=== PATIENT | male | born 1975 | race Caucasian/White ===

== ENCOUNTER 2019-02-07 09:31 | Inpatient (IN) ==
[2019-02-07] MEDS: 0.9 % Sodium Chloride 1,000 ML IVC ONE ×2 (10:02→10:48)
[2019-02-07 10:21] LABS: Basophils % 0.3 %; Eosinophils # 0.1 K/mcL (0.0-0.6); Eosinophils % 3.1 %; Hematocrit 28.8 % (37.5-50.1); Hemoglobin 9.2 g/dL (12.9-16.9); Immature Granulocytes % 0.8 % (0-4); Lymphocytes % 27.3 %; Mean Corpuscular HGB Conc 31.9 g/dL (31.6-35.5); Mean Corpuscular Hemoglobin 24.7 pg (28.0-33.3); Mean Corpuscular Volume 77.4 fL (83.0-100.0); Mean Platelet Volume 8.6 fL (9.4-12.4); Monocytes # 0.5 K/mcL (0.0-1.3); Monocytes % 13.8 %; Neutrophils # 1.9 K/mcL (1.6-8.9); Platelet Count 155 K/mcL (140-400); Red Blood Count 3.72 M/mcL (4.19-5.50); Red Cell Distribution Width 13.8 % (11.5-14.5); Segmented Neutrophils % 54.7 %; White Blood Count 3.6 K/mcL (4.3-11.1)
[2019-02-07] MEDS ORDERED: 0.9 % Sodium Chloride 1,000 ML IVC ONE ×2 (10:28→11:17)
[2019-02-07 10:42] LABS: Blood Urea Nitrogen 9 mg/dL (6-20); Calcium 8.5 mg/dL (8.6-10.3); Carbon Dioxide 29 mEq/L (23-29); Chloride 97 mEq/L (98-107); Glucose 349 mg/dL (70-105); Osmolality,Calculated 285 (280-300); Potassium 5.3 mEq/L (3.5-5.1); Sodium 131 mEq/L (136-145); Troponin I < 0.03 ng/mL (< 0.04)
--- NOTE | 2019-02-07 10:42 | Emergency Department Note ---
Disposition Clinical Impression: Syncope and collapse, Hyperkalemia, Hyperglycemia Hypotension Qualifiers: Hypotension type: unspecified hypotension type Qualified Code(s): I95.9 - Hypotension, unspecified Disposition: Admitted As Inpatient Condition: Fair Time of Disposition: 14:23 General Adult HPI - General Chief complaint: ED Syncope Stated complaint: Syncopal episode,Fall,GC 307 Time Seen by Provider: 02/07/19 09:32 Source: patient Mode of arrival: ambulatory Limitations: no limitations Nursing Notes Reviewed: Yes Vital Signs Reviewed: Yes - History of Present Illness HPI Narrative: Patient is a 43-year-old male with a past medical history of alcohol, methamphetamine and marijuana use presents to the ED for evaluation of syncope. Patient states that today he was outside smoking a cigarette and while smoking the cigarette he collapsed to the ground. He denies any injury. People nearby attended to him and called squad. Upon arrival he denies any focal neurological. Denies any symptoms of chest pain or palpitations. He states that he mainly just feels drowsy. Of rehabilitation in which the patient currently resides is present at bedside states that the patient does appear to be acting drowsy based from his baseline. The patient denies any new drug use. Employed from the [facility] states that it would be very low likelihood that the patient was able to access any type of other medications outside of his prescriptions. States that he was prescribed new blood pressure medication yesterday evening in which she started which was lisinopril and Coreg. Patient denies taking more medication than prescribed. Pain Scale: 8 - Related Data Home Medications Medication Instructions Recorded Confirmed Amitriptyline [Elavil] 150 mg PO HS 02/07/19 02/07/19 Carvedilol [Coreg] 25 mg PO BID 02/07/19 02/07/19 Lisinopril [Zestril] 20 mg PO DAILY 02/07/19 02/07/19 NIFEdipine [Adalat cc] 60 mg PO DAILY 02/07/19 02/07/19 Pantoprazole Sodium [Protonix] 40 mg PO DAILY 02/07/19 02/07/19 Quetiapine Fumarate [Seroquel] 400 mg PO HS 02/07/19 02/07/19 Allergies Allergy/AdvReac Type Severity Reaction Status Date / Time acetaminophen [From Vicodin] AdvReac Nausea Verified 06/03/16 14:06 hydrocodone [From Vicodin] AdvReac Nausea Verified 06/03/16 14:06 All systems ED: reviewed and negative except as stated. Review of Systems: As Per HPI Constitutional: Denies: fever, chills Eyes: Denies: vision change Cardiovascular: Reports: syncope. Denies: chest pain, palpitations, dyspnea on exertion, edema, paroxysmal nocturnal dyspnea Respiratory: Denies: cough, dyspnea, wheezes Gastrointestinal: Denies: abdominal pain, nausea, vomiting, diarrhea, constipation, hematemesis, melena, hematochezia Genitourinary: Denies: urgency, dysuria, frequency, hematuria, testicular pain, testicular mass, genital lesions Musculoskeletal: Denies: back pain, neck pain, joint swelling Integumentary: Denies: rash Neurological: Denies: headache, weakness, numbness, paresthesias, confusion, abnormal gait, vertigo Past Medical History - Past Medical History Attestation: Yes The following information was validated with the patient. Medical history: Reports: coronary artery disease, diabetes, hypertension Surgical history: Reports: non-contributory Psychiatric history: Reports: anxiety, depression - Social History Smoking Status: Current every day smoker Smokeless Tobacco Status: No Alcohol use: Reports: none Drug use: Reports: none Physical Exam - General Limitations: no limitations General appearance: alert, appears intoxicated - Head Head exam: atraumatic, normocephalic, normal inspection - Eye Eye exam: Present: normal appearance, PERRL, EOMI. Absent: miosis, mydriasis - ENT ENT exam: normal exam, normal oropharynx, mucous membranes dry - Neck Neck exam: Present: normal inspection, full ROM, trachea midline. Absent: tenderness - Chest Chest inspection: Present: normal inspection, symmetric chest wall rise. Absent: tenderness - Respiratory Respiratory exam: Present: normal lung sounds bilaterally. Absent: respiratory distress, wheezes, accessory muscle use - Cardiovascular Cardiovascular exam: Present: regular rate, normal rhythm, +S1, +S2 - Abdominal Exam Abdominal exam: Present: soft, Non-Tender, normal bowel sounds - Extremities Exam Extremities exam: Present: normal inspection, full ROM, normal capillary refill. Absent: tenderness - Back Exam Back exam: Present: normal inspection - Neurological Exam Neurological exam: Present: alert, oriented X3 - Psychiatric Psychiatric exam: Present: normal affect, normal mood - Skin Skin exam: Present: warm, dry, intact, normal color Course Course Narrative: Patient's age and presentation appears drowsy otherwise no other physical exam findings at this time. His blood pressure is soft with a map of 55. Unsure of why the patient has such low blood pressure but I am sure that this is the cause of the symptoms he is having. His EKG is normal. We trialed a fluid bolus with the patient with 2 L and no improvement. I discussed the patient's case with the [facility] discussed new medications they recommended atropine, glucagon and if no improvement no epinephrine. Patient had improvement of heart rate 100s with atropine however no improvement in pressure or drowsiness. He was consented for a central line. A right IJ was placed with confirmed placement by ultrasound and chest x-ray. Norepi drip initiated. - Reevaluation(s) Reevaluation #1: Spoke with the Employee Benefits Director, discussed plan to add on an echo and CTA of the chest to evaluate further for PE or cardiac tamponade. Time: 16:04 Reevaluation #2: Echo performed in the ED ED showed no right heart strain. D-dimer was added requested follow-up with the night resident if positive plan to order CT of the chest. Vital Signs Temperature 97.4 F L 02/07/19 09:36 Pulse Rate 72 02/07/19 09:36 Respiratory Rate 18 02/07/19 09:36 Blood Pressure 73/42 02/07/19 09:36 O2 Sat by Pulse Oximetry 97 02/07/19 09:36 Temperature 98 F 02/07/19 16:15 Pulse Rate 71 02/07/19 19:00 Respiratory Rate 13 02/07/19 19:00 Blood Pressure 105/66 02/07/19 19:00 O2 Sat by Pulse Oximetry 99 02/07/19 19:00 Oxygen Delivery Oxygen Delivery Room Air Procedures - Central Line Placement Right IJ Central Line Inserted*: Yes Central Line Catheter Replacement*: Yes Central Line Insertion: guidewire exchange Consent Obtained: written consent Procedural Pause: verify patient name and date of , timeout performed per policy, abhijit and assess the site, assemble equipment and verify supplies, perform hand hygiene Patient Placed on Monitor/Pulse Ox: Yes During the Procedure: clinician is wearing sterile gloves, cap, mask,& gown during insertion, sterile field and sterile technique are maintained, patient's face is covered with drape or mask and wearing a cap, everyone in room is w earing a mask Central Line Prep: Chlorhexidine scrub Prep the Procedure Site: apply chloraprep to the skin using a back and forth scrubbing motion Local Anesthetic: lidocaine 1% Ultrasound Used for Placement: Yes Central Line Lumen Inserted: triple Post Procedure: sutured in place Post Procedure X-Ray: tip of catheter in good position Patient Tolerated Procedure: well Complications: none Name of Clinician Inserting Central Line: Dr. Cooper Montgomery Date: 02/07/19 Time: 13:46 Medical Decision Making - Medical Records Medical records reviewed: Yes I reviewed the patient's medical records. - Lab Data Lab results reviewed: Yes I reviewed the patient's lab results. Result diagrams: 02/07/19 10:07 02/07/19 16:54 Lab Results 02/07/19 02/07/19 02/07/19 Range/Units 09:59 10:07 10:07 WBC 3.6 L (4.3-11.1) K/mcL RBC 3.72 L (4.19-5.50) M/mcL Hgb 9.2 L (12.9-16.9) g/dL Hct 28.8 L (37.5-50.1) % MCV 77.4 L (83.0-100.0) fL MCH 24.7 L (28.0-33.3) pg MCHC 31.9 (31.6-35.5) g/dL RDW 13.8 (11.5-14.5) % Plt Count 155 (140-400) K/mcL MPV 8.6 L (9.4-12.4) fL Immature Gran % 0.8 (0-4) % Seg Neutrophils % 54.7 % Lymphocytes % 27.3 % Monocytes % 13.8 % Eosinophils % 3.1 % Basophils % 0.3 % Neutrophils # 1.9 (1.6-8.9) K/mcL Lymphocytes # 1.0 (0.6-4.6) K/mcL Monocytes # 0.5 (0.0-1.3) K/mcL Eosinophils # 0.1 (0.0-0.6) K/mcL Basophils # 0.0 (0.0-0.2) K/mcL VBG pH (7.32-7.42) pH Units VBG pCO2 (41-51) mmHg VBG pO2 (25-50) mmHg VBG HCO3 (21-27) mEq/L Sodium 131 L (136-145) mEq/L Potassium 5.3 H (3.5-5.1) mEq/L Chloride 97 L (98-107) mEq/L Carbon Dioxide 29 (23-29) mEq/L BUN 9 (6-20) mg/dL Creatinine 1.11 (0.70-1.30) mg/dL Est GFR ( Amer) > 60 (> 60) Est GFR (Non-Af Amer) > 60 (> 60) BUN/Creatinine Ratio 8 (6-26) Glucose 349 H (70-105) mg/dL POC Glucose 366 H (70-99) mg/dL Calculated Osmolality 285 (280-300) Lactic Acid (0.5-2.2) mmol/L Calcium 8.5 L (8.6-10.3) mg/dL Creatine Kinase 70 (30-223) Units/L Troponin I < 0.03 (< 0.04) ng/mL Beta-Hydroxybutyric Acd (0.02-0.27) mmol/L Random Cortisol 14.8 mcg/dl Urine Color (Yellow) Urine Clarity (Clear) Urine pH (5.0-8.0) pH Units Ur Specific Emerson (1.010-1.025) Urine Protein (Neg-Trace) mg/dL Urine Glucose (UA) (Normal) mg/dL Urine Ketones (Negative) mg/dL Urine Blood (Negative) Urine Nitrite (Negative) Urine Bilirubin (Negative) Urine Urobilinogen (Normal) mg/dL Ur Leukocyte Esterase (Negative) Ur Culture Indicated? (NO) Stool Occult Bld Scrn (Negative) 02/07/19 02/07/19 02/07/19 Range/Units 11:20 11:27 11:47 WBC (4.3-11.1) K/mcL RBC (4.19-5.50) M/mcL Hgb (12.9-16.9) g/dL Hct (37.5-50.1) % MCV (83.0-100.0) fL MCH (28.0-33.3) pg MCHC (31.6-35.5) g/dL RDW (11.5-14.5) % Plt Count (140-400) K/mcL MPV (9.4-12.4) fL Immature Gran % (0-4) % Seg Neutrophils % % Lymphocytes % % Monocytes % % Eosinophils % % Basophils % % Neutrophils # (1.6-8.9) K/mcL Lymphocytes # (0.6-4.6) K/mcL Monocytes # (0.0-1.3) K/mcL Eosinophils # (0.0-0.6) K/mcL Basophils # (0.0-0.2) K/mcL VBG pH 7.30 L (7.32-7.42) pH Units VBG pCO2 49 (41-51) mmHg VBG pO2 137 H (25-50) mmHg VBG HCO3 24 (21-27) mEq/L Sodium (136-145) mEq/L Potassium (3.5-5.1) mEq/L Chloride (98-107) mEq/L Carbon Dioxide (23-29) mEq/L BUN (6-20) mg/dL Creatinine (0.70-1.30) mg/dL Est GFR ( Amer) (> 60) Est GFR (Non-Af Amer) (> 60) BUN/Creatinine Ratio (6-26) Glucose (70-105) mg/dL POC Glucose (70-99) mg/dL Calculated Osmolality (280-300) Lactic Acid (0.5-2.2) mmol/L Calcium (8.6-10.3) mg/dL Creatine Kinase (30-223) Units/L Troponin I (< 0.04) ng/mL Beta-Hydroxybutyric Acd 0.19 (0.02-0.27) mmol/L Random Cortisol mcg/dl Urine Color (Yellow) Urine Clarity (Clear) Urine pH (5.0-8.0) pH Units Ur Specific Emerson (1.010-1.025) Urine Protein (Neg-Trace) mg/dL Urine Glucose (UA) (Normal) mg/dL Urine Ketones (Negative) mg/dL Urine Blood (Negative) Urine Nitrite (Negative) Urine Bilirubin (Negative) Urine Urobilinogen (Normal) mg/dL Ur Leukocyte Esterase (Negative) Ur Culture Indicated? (NO) Stool Occult Bld Scrn Negative (Negative) 02/07/19 02/07/19 Range/Units 12:13 13:40 WBC (4.3-11.1) K/mcL RBC (4.19-5.50) M/mcL Hgb (12.9-16.9) g/dL Hct (37.5-50.1) % MCV (83.0-100.0) fL MCH (28.0-33.3) pg MCHC (31.6-35.5) g/dL RDW (11.5-14.5) % Plt Count (140-400) K/mcL MPV (9.4-12.4) fL Immature Gran % (0-4) % Seg Neutrophils % % Lymphocytes % % Monocytes % % Eosinophils % % Basophils % % Neutrophils # (1.6-8.9) K/mcL Lymphocytes # (0.6-4.6) K/mcL Monocytes # (0.0-1.3) K/mcL Eosinophils # (0.0-0.6) K/mcL Basophils # (0.0-0.2) K/mcL VBG pH (7.32-7.42) pH Units VBG pCO2 (41-51) mmHg VBG pO2 (25-50) mmHg VBG HCO3 (21-27) mEq/L Sodium (136-145) mEq/L Potassium (3.5-5.1) mEq/L Chloride (98-107) mEq/L Carbon Dioxide (23-29) mEq/L BUN (6-20) mg/dL Creatinine (0.70-1.30) mg/dL Est GFR ( Amer) (> 60) Est GFR (Non-Af Amer) (> 60) BUN/Creatinine Ratio (6-26) Glucose (70-105) mg/dL POC Glucose (70-99) mg/dL Calculated Osmolality (280-300) Lactic Acid 1.7 (0.5-2.2) mmol/L Calcium (8.6-10.3) mg/dL Creatine Kinase (30-223) Units/L Troponin I (< 0.04) ng/mL Beta-Hydroxybutyric Acd (0.02-0.27) mmol/L Random Cortisol mcg/dl Urine Color Yellow (Yellow) Urine Clarity Clear (Clear) Urine pH 6.5 (5.0-8.0) pH Units Ur Specific Emerson 1.023 (1.010-1.025) Urine Protein Trace (Neg-Trace) mg/dL Urine Glucose (UA) >=1000 H (Normal) mg/dL Urine Ketones Negative (Negative) mg/dL Urine Blood Negative (Negative) Urine Nitrite Negative (Negative) Urine Bilirubin Negative (Negative) Urine Urobilinogen Normal (Normal) mg/dL Ur Leukocyte Esterase Negative (Negative) Ur Culture Indicated? NO (NO) Stool Occult Bld Scrn (Negative) - Radiology Data Radiology results reviewed: Yes I reviewed the patient's radiology results. Chest X-Ray 02/07/19 09:42 IMPRESSION: No acute process. Mild right lower lobe atelectasis D/ / Samir Andersen MD / Samir Andersen MD Interpreting Provider: Samir Andersen MD Head CT 02/07/19 10:17 IMPRESSION: No acute intracranial abnormality. D/ / Samir Andersen MD / Samir Andersen MD Interpreting Provider: Samir Andersen MD - EKG Data EKG #1 EKG attestation: Yes I reviewed and interpreted this EKG. EKG results narrative: EKG done at 9:42 shows sinus rhythm at a rate of 68 bpm. Normal axis. Intervals within normal limits. No signs of ST depression, ST elevation or Q waves present.
[2019-02-07] MEDS ORDERED: *HR* Atropine Sulfate 1 MG/10 ML SYRINGE IVP ONE (11:23)
[2019-02-07 11:49] LABS: VBG HCO3 24 mEq/L (21-27); VBG PCO2 49 mmHg (41-51); VBG PO2 137 mmHg (25-50)
[2019-02-07 11:54] LABS: BUN/Creatinine Ratio 8 (6-26); Creatine Kinase 70 Units/L (30-223); eGFR For African Americans > 60 (> 60); eGFR For Non-African Americans > 60 (> 60)
[2019-02-07] MEDS: Norepinephrine 4 MG in D5% in Water 250 ML IVC SCH ×2 (12:25→19:34)
[2019-02-07] MEDS ORDERED: Hydrocortisone Sodium Succ 100 MG/2 ML VIAL IVP ONE (12:45)
--- NOTE | 2019-02-07 13:18 | Emergency Department Note ---
Disposition Clinical Impression: Syncope and collapse, Hyperkalemia, Hyperglycemia Hypotension Qualifiers: Hypotension type: unspecified hypotension type Qualified Code(s): I95.9 - Hypotension, unspecified Disposition: Admitted As Inpatient Condition: Fair Referrals: NONE,PCP [Primary Care Provider] - Forms: ED Satisfaction Letter Time of Disposition: 13:19 General Adult HPI - General Chief complaint: ED Syncope Stated complaint: Syncopal episode,Fall,GC 307 Time Seen by Provider: 02/07/19 09:32 Source: patient Limitations: no limitations - History of Present Illness Pain Scale: 8 - Related Data Home Medications Medication Instructions Recorded Confirmed Amitriptyline [Elavil] 150 mg PO HS 02/07/19 02/07/19 Carvedilol [Coreg] 25 mg PO DAILY 02/07/19 02/07/19 Lisinopril [Zestril] 20 mg PO DAILY 02/07/19 02/07/19 NIFEdipine [Adalat cc] 30 mg PO DAILY 02/07/19 02/07/19 Pantoprazole Sodium [Protonix] 40 mg PO DAILY 02/07/19 02/07/19 Quetiapine Fumarate [Seroquel] 400 mg PO 02/07/19 Allergies Allergy/AdvReac Type Severity Reaction Status Date / Time acetaminophen [From Vicodin] AdvReac Nausea Verified 06/03/16 14:06 hydrocodone [From Vicodin] AdvReac Nausea Verified 06/03/16 14:06 Past Medical History - Past Medical History Medical history: Reports: coronary artery disease, diabetes, hypertension Surgical history: Reports: non-contributory Psychiatric history: Reports: anxiety, depression - Social History Smoking Status: Current every day smoker Smokeless Tobacco Status: No Alcohol use: Reports: none Drug use: Reports: none Physical Exam - General Limitations: no limitations General appearance: appears intoxicated Course Vital Signs Temperature 97.4 F L 02/07/19 09:36 Pulse Rate 72 02/07/19 09:36 Respiratory Rate 18 02/07/19 09:36 Blood Pressure 73/42 02/07/19 09:36 O2 Sat by Pulse Oximetry 97 02/07/19 09:36 Temperature 97.4 F L 02/07/19 09:41 Pulse Rate 69 02/07/19 12:30 Respiratory Rate 18 02/07/19 12:30 Blood Pressure 94/57 02/07/19 12:30 O2 Sat by Pulse Oximetry 95 02/07/19 12:30 Oxygen Delivery Oxygen Delivery Room Air Medical Decision Making - Lab Data Result diagrams: 02/07/19 10:07 02/07/19 10:07 Lab Results 02/07/19 02/07/19 02/07/19 Range/Units 10:07 10:07 11:20 WBC 3.6 L (4.3-11.1) K/mcL RBC 3.72 L (4.19-5.50) M/mcL Hgb 9.2 L (12.9-16.9) g/dL Hct 28.8 L (37.5-50.1) % MCV 77.4 L (83.0-100.0) fL MCH 24.7 L (28.0-33.3) pg MCHC 31.9 (31.6-35.5) g/dL RDW 13.8 (11.5-14.5) % Plt Count 155 (140-400) K/mcL MPV 8.6 L (9.4-12.4) fL Immature Gran % 0.8 (0-4) % Seg Neutrophils % 54.7 % Lymphocytes % 27.3 % Monocytes % 13.8 % Eosinophils % 3.1 % Basophils % 0.3 % Neutrophils # 1.9 (1.6-8.9) K/mcL Lymphocytes # 1.0 (0.6-4.6) K/mcL Monocytes # 0.5 (0.0-1.3) K/mcL Eosinophils # 0.1 (0.0-0.6) K/mcL Basophils # 0.0 (0.0-0.2) K/mcL VBG pH (7.32-7.42) pH Units VBG pCO2 (41-51) mmHg VBG pO2 (25-50) mmHg VBG HCO3 (21-27) mEq/L Sodium 131 L (136-145) mEq/L Potassium 5.3 H (3.5-5.1) mEq/L Chloride 97 L (98-107) mEq/L Carbon Dioxide 29 (23-29) mEq/L BUN 9 (6-20) mg/dL Creatinine 1.11 (0.70-1.30) mg/dL Est GFR ( Amer) > 60 (> 60) Est GFR (Non-Af Amer) > 60 (> 60) BUN/Creatinine Ratio 8 (6-26) Glucose 349 H (70-105) mg/dL Calculated Osmolality 285 (280-300) Lactic Acid (0.5-2.2) mmol/L Calcium 8.5 L (8.6-10.3) mg/dL Creatine Kinase 70 (30-223) Units/L Troponin I < 0.03 (< 0.04) ng/mL Beta-Hydroxybutyric Acd (0.02-0.27) mmol/L Random Cortisol 14.8 mcg/dl Stool Occult Bld Scrn Negative (Negative) 02/07/19 02/07/19 02/07/19 Range/Units 11:27 11:47 12:13 WBC (4.3-11.1) K/mcL RBC (4.19-5.50) M/mcL Hgb (12.9-16.9) g/dL Hct (37.5-50.1) % MCV (83.0-100.0) fL MCH (28.0-33.3) pg MCHC (31.6-35.5) g/dL RDW (11.5-14.5) % Plt Count (140-400) K/mcL MPV (9.4-12.4) fL Immature Gran % (0-4) % Seg Neutrophils % % Lymphocytes % % Monocytes % % Eosinophils % % Basophils % % Neutrophils # (1.6-8.9) K/mcL Lymphocytes # (0.6-4.6) K/mcL Monocytes # (0.0-1.3) K/mcL Eosinophils # (0.0-0.6) K/mcL Basophils # (0.0-0.2) K/mcL VBG pH 7.30 L (7.32-7.42) pH Units VBG pCO2 49 (41-51) mmHg VBG pO2 137 H (25-50) mmHg VBG HCO3 24 (21-27) mEq/L Sodium (136-145) mEq/L Potassium (3.5-5.1) mEq/L Chloride (98-107) mEq/L Carbon Dioxide (23-29) mEq/L BUN (6-20) mg/dL Creatinine (0.70-1.30) mg/dL Est GFR ( Amer) (> 60) Est GFR (Non-Af Amer) (> 60) BUN/Creatinine Ratio (6-26) Glucose (70-105) mg/dL Calculated Osmolality (280-300) Lactic Acid 1.7 (0.5-2.2) mmol/L Calcium (8.6-10.3) mg/dL Creatine Kinase (30-223) Units/L Troponin I (< 0.04) ng/mL Beta-Hydroxybutyric Acd 0.19 (0.02-0.27) mmol/L Random Cortisol mcg/dl Stool Occult Bld Scrn (Negative) Attestation Statement - Attestation Attestation: I reviewed the residents documentation and agree with the residents assessment and plan of care. I have personally had face to face time with the patient. (Brief History, Brief Exam, and MDM) I personally supervised and was present for the hopper/critical portions of the following procedures completed by the resident: EKG/US 43 year old male presents to the eD with complanits of hypotension ad has been in a rehab facility for the past two months and was started on a Coreg and lisinpril yesterday for HTN. Andrea had an extreme vasovagal response and expereinced syncope and then hit his head. We have essentially looked for causes of his hypotension including bedside ultrasound to rule out dissection vs abdominal anuerysm, adrenal insufficiency, hypovolumic conditions such as GI bleed or dehydration. We have consutled with posion jessyorl about the initial treatment for BB overdose although it seems unlikley that this is the case as his medications are given to him and the couselors at bedside states that he has not had access to medicatiosn otherwise. Patient does appear drowsy at bedisde and is hypotensive with a MAP<65. We placed a central line inthe RIJ And started pressors and now has a MAP > 65. Andrea does not have an infectios source and othewrise does not meet SIRS criiers. We also remedied with atropine, glucagon for BB overdose per poision control reccomdnation
[2019-02-07 14:01] LABS: Bilirubin,Urine Negative (Negative); Blood,Urine Negative (Negative); Clarity,Urine Clear (Clear); Color,Urine Yellow (Yellow); Glucose,Urine (UA) >=1000 mg/dL (Normal); Ketones,Urine Negative (Negative); Leukocyte Esterase,Urine Negative (Negative); Nitrite,Urine Negative (Negative); PH,Urine 6.5 pH Units (5.0-8.0); Protein,Urine Trace mg/dL (Neg-Trace); Specific Gravity,Urine 1.023 (1.010-1.025); Urobilinogen,Urine Normal (Normal)
[2019-02-07] MEDS ORDERED: Naloxone 0.4 MG/ML INJ IVP PRN (15:23)
[2019-02-07] MEDS ORDERED: Pantoprazole 40 MG VIAL IVP SCH (15:30)
--- NOTE | 2019-02-07 15:41 | Pulmonology History & Physical ---
Date of Encounter: 02/07/19 Time of Encounter: 15:00 Assessment and Plan (1) Shock Current visit: Yes Status: Acute Patient recently started the antihypertensive carvedilol was around 25 mg is more than the usual dose and lisinopril 20 mg is more than usual dose on top office nicardipine with some volume depletion most likely causes syncope and collapse because of his extensive diabetes and hypertension hyperlipidemia it is reasonable to rule out myocardial causes will get an echocardiogram and trend troponins. Is reasonable to get CT angiogram to rule out pulmonary embolism. We will do a thorough septic Workup will start on broad-spectrum antibiotics no obvious evidence of infection. (2) Syncope and collapse Current visit: Yes Status: Acute Patient syncope and collapse most likely due to orthostatic hypotension after this new medication the setting of some volume depletion. (3) Diabetes Current visit: Yes Status: Acute Patient has uncontrolled hyperglycemia with no evidence of ketoacidosis IV ins ulin drip patient is nothing by mouth Qualifiers: Diabetes mellitus type: type 2 Diabetes mellitus termite control technician insulin use: unspecified termite control technician insulin use status Diabetes mellitus complication status: with other specified complication Qualified Code(s): E11.69 - Type 2 diabetes mellitus with other specified complication (4) DVT prophylaxis Current visit: Yes Status: Acute Continue heparin subcutaneous History of Present Illness Chief complaint: Syncope and collapse HPI: Mr. Arthur is a 43 year old male with past medical history significant for alcohol and IV drug abuse, patient has a past medical history significant for hypertension, diabetes, hyperlipidemia, coronary artery disease comes with the syncope and collapse patient recently was started on oral hypertension antihypertensive carvedilol 25 mg and lisinopril 20 mg by mouth on top of his neck and up and patient denies any issues with urination denies much cough or sputum production patient denies any photophobia except for some headache which is chronic migraine according to him. There is no episode for acute confusion patient denies any chest pain chest tightness denies any palpitations. Patient denies any nausea vomiting diarrhea patient was persistently hypotensive after volume resuscitation patient had a dose of glucagon in ER with no response patient was started on vasopressor norepinephrine to stabilize the blood pressure critical care was consult and for further management and transferred to ICU for further care. Past Med Surg Social Fam HX - Past Medical History Medical history: coronary artery disease, diabetes, hypertension Additional medical history: endocarditis Psychiatric history: anxiety, depression - Past Surgical History Surgical History: non-contributory - Social History Smoking Status: Current every day smoker Smokeless Tobacco Status: No Alcohol use: none Drug use: none Medications and Allergies Amitriptyline [Elavil] 150 mg PO HS 02/07/19 [History] Carvedilol [Coreg] 25 mg PO BID 02/07/19 [History] Lisinopril [Zestril] 20 mg PO DAILY 02/07/19 [History] NIFEdipine [Adalat cc] 60 mg PO DAILY 02/07/19 [History] Pantoprazole Sodium [Protonix] 40 mg PO DAILY 02/07/19 [History] Quetiapine Fumarate [Seroquel] 400 mg PO HS 02/07/19 [History] Allergy/AdvReac Type Severity Reaction Status Date / Time acetaminophen [From Vicodin] AdvReac Nausea Verified 06/03/16 14:06 hydrocodone [From Vicodin] AdvReac Nausea Verified 06/03/16 14:06 All Systems: The remainder of the systems were reviewed and are negative Physical Examination Vital Signs: Vital Signs, Last 4 Hours Pulse Resp BP Pulse Ox 02/07/19 15:00 76 16 87/57 92 02/07/19 13:57 104/71 02/07/19 13:16 70 18 95/62 95 02/07/19 12:30 69 18 94/57 95 02/07/19 12:26 68 18 73/57 94 General appearance: no acute distress Eyes: nonicteric ENT: oropharynx moist Neck: supple Inspection: other (Significant scar in the sternum) Auscultation: bilateral: clear Cardiovascular: regular rate and rhythm Gastrointestinal: normoactive bowel sounds Extremities: no cyanosis, no edema Musculoskeletal: no deformities normal mental status, non-focal exam, CN II-XII normal mood appropriate Results - Laboratory Findings CBC and BMP: 02/07/19 10:07 02/07/19 16:54 Abnormal lab findings: Abnormal lab results WBC 3.6 K/mcL (4.3-11.1) L 02/07/19 10:07 RBC 3.72 M/mcL (4.19-5.50) L 02/07/19 10:07 Hgb 9.2 g/dL (12.9-16.9) L 02/07/19 10:07 Hct 28.8 % (37.5-50.1) L 02/07/19 10:07 MCV 77.4 fL (83.0-100.0) L 02/07/19 10:07 MCH 24.7 pg (28.0-33.3) L 02/07/19 10:07 MPV 8.6 fL (9.4-12.4) L 02/07/19 10:07 VBG pH 7.30 pH Units (7.32-7.42) L 02/07/19 11:47 VBG pO2 137 mmHg (25-50) H 02/07/19 11:47 Sodium 131 mEq/L (136-145) L 02/07/19 10:07 Potassium 5.3 mEq/L (3.5-5.1) H 02/07/19 10:07 Chloride 97 mEq/L (98-107) L 02/07/19 10:07 Glucose 349 mg/dL (70-105) H 02/07/19 10:07 Calcium 8.5 mg/dL (8.6-10.3) L 02/07/19 10:07 >=1000 mg/dL (Normal) H 02/07/19 13:40 Critical Care Time Critical Care Time: Yes Total Critical Care Time: 45 Attestation: I saw and evaluated this patient and my medical decision-making was reviewed wi th the Resident Physician. I agree with the documented findings, disposition and treatment plan as described except to the extent set forth below. We independently had [id number] contact with the patient I spent 45 minutes of Critical Care time with this patient. It involved decision making of high complexity to assess, manipulate, and support vital organ system failure and/or to prevent further life threatening deterioration of the patient's condition. The time involved in the performance of separately reportable procedures was not counted toward critical care time.
[2019-02-07] MEDS ORDERED: Aminoglycoside Consult 1 EACH MC ONE (15:47)
[2019-02-07] MEDS ORDERED: Isovue-370 500 ML BOTTLE IVP ONE (15:50)
[2019-02-07] MEDS ORDERED: Vancomycin (wt based) 1,000 MG VIAL IVPB SCH (16:00)
[2019-02-07] MEDS ORDERED: D5% in Water 1,000 ML IVC PRN (16:29)
[2019-02-07] MEDS ORDERED: Dextrose Gel 15 GM/37.5 ML TUBE PO PRN ×2 (16:29)
[2019-02-07] MEDS ORDERED: *HR* Dextrose 50 % in Water (Syg) 50 ML SYRINGE IVP PRN ×2 (16:29→19:00)
[2019-02-07 17:13] LABS: VBG Ionized Calcium 1.11 mmol/L (1.15-1.35)
[2019-02-07 17:58] LABS: BUN/Creatinine Ratio 12 (6-26); Blood Urea Nitrogen 13 mg/dL (6-20); Calcium 7.7 mg/dL (8.6-10.3); Carbon Dioxide 23 mEq/L (23-29); Chloride 98 mEq/L (98-107); Glucose 557 mg/dL (70-105); Magnesium 1.6 mg/dL (1.6-2.6); Osmolality,Calculated 292 (280-300); Phosphorous 2.9 mg/dL (2.7-4.5); Potassium 5.2 mEq/L (3.5-5.1); Sodium 128 mEq/L (136-145); Troponin I < 0.03 ng/mL (< 0.04); eGFR For African Americans > 60 (> 60); eGFR For Non-African Americans > 60 (> 60)
[2019-02-07] MEDS ORDERED: Insulin LISPRO 300 UNITS/3 ML VIAL SQ SCH (18:00)
[2019-02-07 18:06] LABS: Thyroid Stimulating Hormone 0.744 mcIU/mL (0.340-5.600)
[2019-02-07] MEDS ORDERED: Insulin DETEMIR 100 UNIT/ML X5UNITS SQ ONE (18:07)
[2019-02-07 18:50] LABS: Amphetamine Screen,Urine Negative ng/mL (Cutoff=1000); Barbiturate Screen,Urine Negative ng/mL (Cutoff=200); Benzodiazepines Screen,Urine Positive ng/mL (Cutoff=200); Cannabinoid Screen,Urine Negative ng/mL (Cutoff = 50); Cocaine Screen,Urine Negative ng/mL (Cutoff= 300); Opiate Screen,Urine Negative ng/mL (Cutoff=300); Phencyclidine Screen,Urine Negative ng/mL (Cutoff=25)
[2019-02-07] MEDS: Piperacillin/Tazobactam 3.375 GM in 0.9 % Sodium Chloride Mini Bag 100 ML IVPB SCH (18:59)
[2019-02-07] MEDS: Insulin Human Regular 100 UNIT in 0.9 % Sodium Chloride 100 ML IVC SCH ×2 (19:37→23:35)
[2019-02-07] MEDS: *HR* Heparin 5,000 UNIT/ML VIAL SQ SCH (22:19)
[2019-02-07] MEDS ORDERED: 0.9 % Sodium Chloride 1,000 ML IVC SCH (23:00)
[2019-02-07 23:34] LABS: VBG HCO3 22 mEq/L (21-27); VBG PCO2 47 mmHg (41-51); VBG PH 7.28 pH Units (7.32-7.42); VBG PO2 134 mmHg (25-50)
[2019-02-07 23:51] LABS: Blood Urea Nitrogen 15 mg/dL (6-20); Calcium 8.2 mg/dL (8.6-10.3); Carbon Dioxide 23 mEq/L (23-29); Chloride 103 mEq/L (98-107); Glucose 245 mg/dL (70-105); Osmolality,Calculated 285 (280-300); Potassium 3.5 mEq/L (3.5-5.1); Sodium 133 mEq/L (136-145)
[2019-02-08 00:47] LABS: BUN/Creatinine Ratio 15 (6-26); eGFR For African Americans > 60 (> 60); eGFR For Non-African Americans > 60 (> 60)
[2019-02-08] MEDS: Piperacillin/Tazobactam 3.375 GM in 0.9 % Sodium Chloride Mini Bag 100 ML IVPB SCH (02:04)
[2019-02-08] MEDS: *HR* Heparin 5,000 UNIT/ML VIAL SQ SCH ×3 (05:39→20:49)
[2019-02-08] MEDS ORDERED: Insulin LISPRO 300 UNITS/3 ML VIAL SQ SCH ×2 (06:00→08:00)
[2019-02-08 06:14] LABS: Basophils % 0.1 %; Eosinophils % 0.5 %; Hematocrit 26.3 % (37.5-50.1); Hemoglobin 8.6 g/dL (12.9-16.9); Immature Granulocytes % 0.5 % (0-4); Lymphocytes # 1.4 K/mcL (0.6-4.6); Lymphocytes % 15.6 %; Mean Corpuscular HGB Conc 32.7 g/dL (31.6-35.5); Mean Corpuscular Volume 76.5 fL (83.0-100.0); Mean Platelet Volume 8.9 fL (9.4-12.4); Monocytes # 0.9 K/mcL (0.0-1.3); Monocytes % 9.8 %; Neutrophils # 6.5 K/mcL (1.6-8.9); Platelet Count 234 K/mcL (140-400); Red Blood Count 3.44 M/mcL (4.19-5.50); Red Cell Distribution Width 13.7 % (11.5-14.5); Segmented Neutrophils % 73.5 %
[2019-02-08 06:17] LABS: White Blood Count 8.8 K/mcL (4.3-11.1)
--- NOTE | 2019-02-08 07:08 | Pulmonology Progress Note ---
<Sage Odom W - Last Filed: 02/08/19 08:40> Date of Encounter: 02/08/19 Objective PUL Vital signs: Last Vital Signs Temp 97.3 F L 02/08/19 07:39 Pulse 90 02/08/19 08:00 Resp 16 02/08/19 08:00 BP 121/85 02/08/19 08:00 Pulse Ox 97 02/08/19 08:00 Results - Laboratory Findings CBC and BMP: 02/08/19 04:09 02/07/19 23:20 PT/INR, D-dimer 1435 ng/mLFEU (0-500) H 02/07/19 16:54 Abnormal lab findings: Abnormal lab results WBC 3.6 K/mcL (4.3-11.1) L 02/07/19 10:07 RBC 3.44 M/mcL (4.19-5.50) L 02/08/19 04:09 Hgb 8.6 g/dL (12.9-16.9) L 02/08/19 04:09 Hct 26.3 % (37.5-50.1) L 02/08/19 04:09 MCV 76.5 fL (83.0-100.0) L 02/08/19 04:09 MCH 25.0 pg (28.0-33.3) L 02/08/19 04:09 MPV 8.9 fL (9.4-12.4) L 02/08/19 04:09 1435 ng/mLFEU (0-500) H 02/07/19 16:54 VBG pH 7.28 pH Units (7.32-7.42) L 02/07/19 23:31 VBG pO2 134 mmHg (25-50) H 02/07/19 23:31 Sodium 133 mEq/L (136-145) L 02/07/19 23:20 Potassium 5.2 mEq/L (3.5-5.1) H 02/07/19 16:54 Chloride 97 mEq/L (98-107) L 02/07/19 10:07 Glucose 245 mg/dL (70-105) H 02/07/19 23:20 POC Glucose 132 mg/dL (70-99) H 02/08/19 00:40 Lactic Acid 3.6 mmol/L (0.5-2.2) H 02/07/19 20:53 Calcium 8.2 mg/dL (8.6-10.3) L 02/07/19 23:20 Venous Ioniz Calcium 1.11 mmol/L (1.15-1.35) L 02/07/19 17:10 >=1000 mg/dL (Normal) H 02/07/19 13:40 Ur Buprenorphine Scrn Positive ng/mL (Cutoff=5) H 02/07/19 15:06 U Benzodiazepines Scrn Positive ng/mL (Jcdfnb=039) H 02/07/19 15:06 - Microbiology Findings Microbiology Findings: Microbiology, Last 48 Hours 02/07/19 13:40 Streptococcus pneumoniae Antigen (M - Final Urine,Clean Catch 02/07/19 13:40 Legionella Antigen - Final Urine,Clean Catch 02/07/19 17:40 Blood Culture - Preliminary Peripheral Venipuncture Culture is incubating and being continuously monitored for growth. Final report to follow. 02/07/19 17:40 Blood Culture - Preliminary Peripheral Venipuncture Culture is incubating and being continuously monitored for growth. Final report to follow. - Clinical Findings Intake & Output: Intake & Output 02/07/19 02/08/19 02/08/19 23:59 07:59 15:59 Intake Total 666.6 / 3711.6 395.2 / 395.2 Output Total 0 / 0 0 / 0 Balance 666.6 / 3711.6 395.2 / 395.2 Weight 61.7 kg 67.4 kg Consult Discharge Plan - Plan Referrals: NONE,PCP [Primary Care Provider] - - Attending Attestation I examined this patient and my medical decision-making was reviewed with the Resident Physician. I agree with the documented findings, disposition and treatment plan as described except to the extent set forth below. We ind ependently had [id number] contact with the patient Patient seen and examined at bedside Labs, radiology, chart personally reviewed. Management was reviewed during multidisciplinary critical care rounds. PRIZER HAND: Awake and alert no focal deficits he is in a rehabilitation program for drug addiction Pulm: Acceptable oxygenation; tobacco cessation counseling given Cards: She presented with syncope likely secondary to hypotension from medication effect he has been weaned off vasopressors and is stable GI: Continue to monitor Nutrition: Advance diet as tolerated Renal: UOP Monitored, Cont to Trend sCr and monitor Electrolytes. ID: No clear evidence of infection Heme/Onc: DVT prophylaxis while inpatient Endo: Glucose Monitored Integ/MSK: Skin Care per routine ICU Nursing Protocol to prevent ulcers. Lines: All lines examined without evidence of infection : Dispo: Stable for transfer to telemetry for ongoing care CODE: Full <Chiqui Tam - Last Filed: 02/08/19 12:11> Date of Encounter: 02/08/19 Time of Encounter: 07:08 Assessment and Plan (1) Shock Current Visit: Yes Status: Acute * More likely source of hypotension requiring vasopressors was the readmission of several antihypertensive medications with resultant orthostatic hypotension just prior to emergency department visit. * CT shows no convincing evidence of pulmonary infiltrate, the patient has no significant cough or leukocytosis * Patient with 1/4 SIRS criteria on arrival * Lactate 1.7, 2.1, 3.6 but had acidosis likely secondary to metabolic derangements from hyperglycemia * Will discontinue antibiotics upon transfer out of ICU today * Stable for telemetry floor (2) Hyperglycemia Current Visit: Yes Status: Acute * Upon arrival the patient's glucose was elevated up to 490. No elevation in anion gap or beahydroxybutyrate to indicate DKA * Overnight the patient was placed on insulin drip and is now normoglycemic * Insulin TIDAC as he will resume diabetic diet (3) Diabetes Current Visit: Yes Status: Acute * As above, will continue to monitor with meals and treat with sliding scale insulin Qualifiers: Diabetes mellitus type: type 2 Diabetes mellitus penitentiary insulin use: unspecified penitentiary insulin use status Diabetes mellitus complication status: with other specified complication Qualified Code(s): E11.69 - Type 2 diabetes mellitus with other specified complication (4) Polysubstance abuse Current Visit: Yes Status: Chronic * Currently in rehab * UDS positive for buprenorphine and benzodiazepines * No signs of withdrawal at this time (5) DVT prophylaxis Current Visit: Yes Status: Acute * Heparin SQ Subjective Interval history: The patient has done well. He is requesting food. He is no longer requiring va sopressors. Objective PUL Vital signs: Last Vital Signs Temp 97.0 F L 02/08/19 03:36 Pulse 81 02/08/19 06:00 Resp 16 02/08/19 06:00 BP 130/86 02/08/19 06:00 Pulse Ox 97 02/08/19 06:00 General appearance: no acute distress Eyes: nonicteric ENT: oropharynx moist Effort: normal Auscultation: bilateral: clear Cardiovascular: regular rate and rhythm Gastrointestinal: normoactive bowel sounds, non-tender, non-distended Integumentary: normal Extremities: no cyanosis Musculoskeletal: no deformities normal mental status, non-focal exam mood appropriate, affect normal Results - Laboratory Findings CBC and BMP: 02/08/19 04:09 02/08/19 04:20 PT/INR, D-dimer 1435 ng/mLFEU (0-500) H 02/07/19 16:54 Abnormal lab findings: Abnormal lab results WBC 3.6 K/mcL (4.3-11.1) L 02/07/19 10:07 RBC 3.44 M/mcL (4.19-5.50) L 02/08/19 04:09 Hgb 8.6 g/dL (12.9-16.9) L 02/08/19 04:09 Hct 26.3 % (37.5-50.1) L 02/08/19 04:09 MCV 76.5 fL (83.0-100.0) L 02/08/19 04:09 MCH 25.0 pg (28.0-33.3) L 02/08/19 04:09 MPV 8.9 fL (9.4-12.4) L 02/08/19 04:09 1435 ng/mLFEU (0-500) H 02/07/19 16:54 VBG pH 7.28 pH Units (7.32-7.42) L 02/07/19 23:31 VBG pO2 134 mmHg (25-50) H 02/07/19 23:31 Sodium 133 mEq/L (136-145) L 02/07/19 23:20 Potassium 5.2 mEq/L (3.5-5.1) H 02/07/19 16:54 Chloride 97 mEq/L (98-107) L 02/07/19 10:07 Glucose 245 mg/dL (70-105) H 02/07/19 23:20 POC Glucose 132 mg/dL (70-99) H 02/08/19 00:40 Lactic Acid 3.6 mmol/L (0.5-2.2) H 02/07/19 20:53 Calcium 8.2 mg/dL (8.6-10.3) L 02/07/19 23:20 Venous Ioniz Calcium 1.11 mmol/L (1.15-1.35) L 02/07/19 17:10 >=1000 mg/dL (Normal) H 02/07/19 13:40 Ur Buprenorphine Scrn Positive ng/mL (Cutoff=5) H 02/07/19 15:06 U Benzodiazepines Scrn Positive ng/mL (Jchdkk=817) H 02/07/19 15:06 - Microbiology Findings Microbiology Findings: Microbiology, Last 48 Hours 02/07/19 13:40 Streptococcus pneumoniae Antigen (M - Final Urine,Clean Catch 02/07/19 13:40 Legionella Antigen - Final Urine,Clean Catch 02/07/19 17:40 Blood Culture - Preliminary Peripheral Venipuncture Culture is incubating and being continuously monitored for growth. Final report to follow. 02/07/19 17:40 Blood Culture - Preliminary Peripheral Venipuncture Culture is incubating and being continuously monitored for growth. Final report to follow. - Clinical Findings Intake & Output: Intake & Output 02/07/19 02/07/19 02/08/19 15:59 23:59 07:59 Intake Total 3045 / 3711.6 666.6 / 3711.6 395.2 / 395.2 Output Total 0 / 0 0 / 0 Balance 3045 / 3711.6 666.6 / 3711.6 395.2 / 395.2 Weight 62.959 kg 61.7 kg 67.4 kg
[2019-02-08] MEDS ORDERED: D5% in Water 1,000 ML IVC PRN (08:05)
[2019-02-08] MEDS ORDERED: *HR* Dextrose 50 % in Water (Syg) 50 ML SYRINGE IVP PRN (08:05)
[2019-02-08] MEDS ORDERED: Dextrose Gel 15 GM/37.5 ML TUBE PO PRN ×2 (08:05)
[2019-02-08] MEDS ORDERED: Naloxone 0.4 MG/ML INJ IVP PRN (08:05)
[2019-02-08] MEDS ORDERED: NON-FORMULARY MEDICATION 1 EACH EACH (Pantoprazole Sodium [Protonix] 40 MG) PO SCH (09:00)
[2019-02-08 09:02] LABS: BUN/Creatinine Ratio 15 (6-26); Blood Urea Nitrogen 13 mg/dL (6-20); Carbon Dioxide 25 mEq/L (23-29); Chloride 105 mEq/L (98-107); Glucose 145 mg/dL (70-105); Magnesium 1.7 mg/dL (1.6-2.6); Osmolality,Calculated 281 (280-300); Potassium 4.4 mEq/L (3.5-5.1); Sodium 134 mEq/L (136-145); eGFR For African Americans > 60 (> 60); eGFR For Non-African Americans > 60 (> 60)
[2019-02-08] MEDS: Insulin LISPRO 300 UNITS/3 ML VIAL SQ SCH ×2 (12:04→16:18)
[2019-02-08] MEDS ORDERED: *HR* Labetalol 20 MG/4 ML SYRINGE IVP PRN (16:05)
[2019-02-08] MEDS ORDERED: *HR* Labetalol 20 MG/4 ML SYRINGE IVP ONE (16:11)
[2019-02-08] MEDS: Lisinopril 20 MG TABLET PO SCH (20:49)
[2019-02-09] MEDS ORDERED: Insulin NPH 100 UNIT/ML (x5UNIT) SQ ONE (02:37)
[2019-02-09] MEDS ORDERED: Insulin LISPRO 300 UNITS/3 ML VIAL SQ ONE (02:51)
[2019-02-09] MEDS: *HR* Heparin 5,000 UNIT/ML VIAL SQ SCH ×2 (06:38→14:49)
[2019-02-09] MEDS: Lisinopril 20 MG TABLET PO SCH (08:38)
[2019-02-09] MEDS: Insulin LISPRO 300 UNITS/3 ML VIAL SQ SCH ×2 (08:38→12:26)
[2019-02-09 11:48] VITALS: BP 157/105
[2019-02-09] MEDS ORDERED: levoFLOXacin 750 MG TABLET PO SCH (12:00)
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
--- NOTE | 2019-02-10 09:16 | Electrocardiograph Report ---
[facility] Test Date: 2019-02-07 Pat Name: Rick Arthur Department: [id number] Room: 2NE23 Gender: M Welder Assistant: : 1975 Requested By: Cooper Montgomery Order Number: [id number] Reading MD: Clive Blanco Measurements Intervals Drift Rate: 68 P: 30 ME: 184 QRS: 40 QRSD: 92 T: 34 QT: 421 QTc: 448 Interpretive Statements Sinus rhythm Electronically Signed On 02-10-2019 9:14:27 EDT by Clive Blanco
[2019-02-11 11:24] LABS: Estimated Average Glucose 200 mg/dl
== END 2019-02-09 15:48 | disposition home or self-care (01) | DRG 207 ==
LOC: EMEROOARM 09:31 → ICNU 14:37 → SUATTDRO 14:37 → ICNU 16:02 → 2NENU 02-08 09:52
PROVIDERS: ADMIT Internal Medicine; ATTEND Student in an Organized Health Care Education/Training Program

== ENCOUNTER 2019-02-16 17:42 | Observation (INO) ==
[2019-02-16] MEDS ORDERED: *HR* LORazepam 2 MG/ML VIAL ONE (17:44)
[2019-02-16] MEDS ORDERED: *HR* Dextrose 50 % in Water (Syg) 50 ML SYRINGE ONE (17:45)
[2019-02-16] MEDS ORDERED: 0.9 % Sodium Chloride 1,000 ML ONE (17:53)
[2019-02-16] MEDS ORDERED: 0.9 % Sodium Chloride 1,000 ML IVC ONE ×2 (18:08→18:56)
--- NOTE | 2019-02-16 18:27 | Emergency Department Note ---
Disposition Clinical Impression: Hypoglycemic event in diabetes, Suicidal ideation Disposition: Still a Patient Condition: Fair Referrals: NONE,PCP [Primary Care Provider] - Forms: ED Satisfaction Letter Time of Disposition: 22:00 General Adult HPI - General Chief complaint: ED Seizure Time Seen by Provider: 02/16/19 18:02 Source: EMS Limitations: no limitations - History of Present Illness Pain Scale: 0 - Related Data Home Medications Medication Instructions Recorded Confirmed Carvedilol [Coreg] 25 mg PO BID 02/07/19 02/16/19 Lisinopril [Zestril] 20 mg PO DAILY 02/07/19 02/16/19 NIFEdipine [Adalat cc] 60 mg PO DAILY 02/07/19 02/16/19 Pantoprazole Sodium [Protonix] 40 mg PO BID 02/07/19 02/16/19 Quetiapine Fumarate [Seroquel] 400 mg PO HS 02/07/19 02/16/19 Insulin ASPART [NovoLOG] 10 unit SQ TIDWM 02/09/19 02/16/19 Insulin Glargine [Lantus] 20 unit SQ HS 02/09/19 02/16/19 Amitriptyline HCl 150 mg PO HS 02/16/19 02/16/19 Gabapentin [Neurontin] 300 mg PO TID 02/16/19 02/16/19 Quetiapine Fumarate [Seroquel] 50 mg PO HS 02/16/19 02/16/19 Previous Rx's Medication Instructions Recorded Amoxicillin/Clavulanate [Augmentin] 875 mg PO BIDWM #19 tablet 02/09/19 Allergies Allergy/AdvReac Type Severity Reaction Status Date / Time acetaminophen [From Vicodin] AdvReac Nausea Verified 06/03/16 14:06 hydrocodone [From Vicodin] AdvReac Nausea Verified 06/03/16 14:06 Past Medical History - Past Medical History Medical history: Reports: coronary artery disease, diabetes, hypertension Surgical history: Reports: non-contributory Psychiatric history: Reports: anxiety, depression - Social History Smoking Status: Current every day smoker Smokeless Tobacco Status: No Alcohol use: Reports: none Drug use: Reports: none Physical Exam - General Limitations: no limitations Course Vital Signs Temperature 97.0 F L 02/16/19 17:51 Pulse Rate 125 02/16/19 17:51 Respiratory Rate 22 02/16/19 17:51 Blood Pressure 200/100 02/16/19 17:51 O2 Sat by Pulse Oximetry 100 02/16/19 17:51 Temperature 97.0 F L 02/16/19 17:51 Pulse Rate 107 02/16/19 20:00 Respiratory Rate 16 02/16/19 20:00 Blood Pressure 156/98 02/16/19 20:00 O2 Sat by Pulse Oximetry 100 02/16/19 20:00 Oxygen Delivery Oxygen Delivery Room Air Medical Decision Making - Lab Data Result diagrams: 02/16/19 18:08 02/16/19 18:08 Lab Results 02/16/19 02/16/19 02/16/19 Range/Units 18:08 18:08 19:33 WBC 6.3 (4.3-11.1) K/mcL RBC 3.68 L (4.19-5.50) M/mcL Hgb 9.0 L (12.9-16.9) g/dL Hct 29.0 L (37.5-50.1) % MCV 78.8 L (83.0-100.0) fL MCH 24.5 L (28.0-33.3) pg MCHC 31.0 L (31.6-35.5) g/dL RDW 14.3 (11.5-14.5) % Plt Count 281 (140-400) K/mcL MPV 8.5 L (9.4-12.4) fL Immature Gran % 0.6 (0-4) % Seg Neutrophils % 73.4 % Lymphocytes % 15.7 % Monocytes % 8.7 % Eosinophils % 1.3 % Basophils % 0.3 % Neutrophils # 4.6 (1.6-8.9) K/mcL Lymphocytes # 1.0 (0.6-4.6) K/mcL Monocytes # 0.6 (0.0-1.3) K/mcL Eosinophils # 0.1 (0.0-0.6) K/mcL Basophils # 0.0 (0.0-0.2) K/mcL Sodium 133 L (136-145) mEq/L Potassium 3.8 (3.5-5.1) mEq/L Chloride 101 (98-107) mEq/L Carbon Dioxide 24 (23-29) mEq/L BUN 15 (6-20) mg/dL Creatinine 1.00 (0.70-1.30) mg/dL Est GFR ( Amer) > 60 (> 60) Est GFR (Non-Af Amer) > 60 (> 60) BUN/Creatinine Ratio 15 (6-26) Glucose 150 H (70-105) mg/dL POC Glucose (70-99) mg/dL Calculated Osmolality 280 (280-300) Calcium 8.4 L (8.6-10.3) mg/dL Creatine Kinase 77 (30-223) Units/L Troponin I < 0.03 (< 0.04) ng/mL Urine Color Yellow (Yellow) Urine Clarity Clear (Clear) Urine pH 6.0 (5.0-8.0) pH Units Ur Specific [place] 1.017 (1.010-1.025) Urine Protein Negative (Neg-Trace) mg/dL Urine Glucose (UA) 500 H (Normal) mg/dL Urine Ketones Negative (Negative) mg/dL Urine Blood Negative (Negative) Urine Nitrite Negative (Negative) Urine Bilirubin Negative (Negative) Urine Urobilinogen Normal (Normal) mg/dL Ur Leukocyte Esterase Negative (Negative) Salicylates < 2.5 L (15.0-30.0) mg/dL Urine Opiates Screen (Sagytj=612) ng/mL Ur Buprenorphine Scrn (Cutoff=5) ng/mL Acetaminophen < 10 L (10-20) mcg/mL Ur Barbiturates Screen (Hkyowy=437) ng/mL Ur Phencyclidine Scrn (Cutoff=25) ng/mL Ur Amphetamines Screen (Dobmjd=2011) ng/mL U Benzodiazepines Scrn (Vardjb=936) ng/mL Urine Cocaine Screen (Cutoff= 300) ng/mL U Marijuana (THC) Screen (Cutoff = 50) ng/mL Ur Drug Screen Interp Ethyl Alcohol < 10 (Less than 10) mg/dL 02/16/19 02/16/19 02/16/19 Range/Units 19:33 20:06 20:47 WBC (4.3-11.1) K/mcL RBC (4.19-5.50) M/mcL Hgb (12.9-16.9) g/dL Hct (37.5-50.1) % MCV (83.0-100.0) fL MCH (28.0-33.3) pg MCHC (31.6-35.5) g/dL RDW (11.5-14.5) % Plt Count (140-400) K/mcL MPV (9.4-12.4) fL Immature Gran % (0-4) % Seg Neutrophils % % Lymphocytes % % Monocytes % % Eosinophils % % Basophils % % Neutrophils # (1.6-8.9) K/mcL Lymphocytes # (0.6-4.6) K/mcL Monocytes # (0.0-1.3) K/mcL Eosinophils # (0.0-0.6) K/mcL Basophils # (0.0-0.2) K/mcL Sodium (136-145) mEq/L Potassium (3.5-5.1) mEq/L Chloride (98-107) mEq/L Carbon Dioxide (23-29) mEq/L BUN (6-20) mg/dL Creatinine (0.70-1.30) mg/dL Est GFR ( Amer) (> 60) Est GFR (Non-Af Amer) (> 60) BUN/Creatinine Ratio (6-26) Glucose (70-105) mg/dL POC Glucose 299 H 334 H (70-99) mg/dL Calculated Osmolality (280-300) Calcium (8.6-10.3) mg/dL Creatine Kinase (30-223) Units/L Troponin I (< 0.04) ng/mL Urine Color (Yellow) Urine Clarity (Clear) Urine pH (5.0-8.0) pH Units Ur Specific [place] (1.010-1.025) Urine Protein (Neg-Trace) mg/dL Urine Glucose (UA) (Normal) mg/dL Urine Ketones (Negative) mg/dL Urine Blood (Negative) Urine Nitrite (Negative) Urine Bilirubin (Negative) Urine Urobilinogen (Normal) mg/dL Ur Leukocyte Esterase (Negative) Salicylates (15.0-30.0) mg/dL Urine Opiates Screen Negative (Qstjcm=939) ng/mL Ur Buprenorphine Scrn Negative (Cutoff=5) ng/mL Acetaminophen (10-20) mcg/mL Ur Barbiturates Screen Negative (Lbqsbi=909) ng/mL Ur Phencyclidine Scrn Negative (Cutoff=25) ng/mL Ur Amphetamines Screen Negative (Coxlfp=6029) ng/mL U Benzodiazepines Scrn Negative (Zxyodu=446) ng/mL Urine Cocaine Screen Negative (Cutoff= 300) ng/mL U Marijuana (THC) Screen Negative (Cutoff = 50) ng/mL Ur Drug Screen Interp See Below Ethyl Alcohol (Less than 10) mg/dL 02/16/19 Range/Units 21:22 WBC (4.3-11.1) K/mcL RBC (4.19-5.50) M/mcL Hgb (12.9-16.9) g/dL Hct (37.5-50.1) % MCV (83.0-100.0) fL MCH (28.0-33.3) pg MCHC (31.6-35.5) g/dL RDW (11.5-14.5) % Plt Count (140-400) K/mcL MPV (9.4-12.4) fL Immature Gran % (0-4) % Seg Neutrophils % % Lymphocytes % % Monocytes % % Eosinophils % % Basophils % % Neutrophils # (1.6-8.9) K/mcL Lymphocytes # (0.6-4.6) K/mcL Monocytes # (0.0-1.3) K/mcL Eosinophils # (0.0-0.6) K/mcL Basophils # (0.0-0.2) K/mcL Sodium (136-145) mEq/L Potassium (3.5-5.1) mEq/L Chloride (98-107) mEq/L Carbon Dioxide (23-29) mEq/L BUN (6-20) mg/dL Creatinine (0.70-1.30) mg/dL Est GFR ( Amer) (> 60) Est GFR (Non-Af Amer) (> 60) BUN/Creatinine Ratio (6-26) Glucose (70-105) mg/dL POC Glucose 331 H (70-99) mg/dL Calculated Osmolality (280-300) Calcium (8.6-10.3) mg/dL Creatine Kinase (30-223) Units/L Troponin I (< 0.04) ng/mL Urine Color (Yellow) Urine Clarity (Clear) Urine pH (5.0-8.0) pH Units Ur Specific [place] (1.010-1.025) Urine Protein (Neg-Trace) mg/dL Urine Glucose (UA) (Normal) mg/dL Urine Ketones (Negative) mg/dL Urine Blood (Negative) Urine Nitrite (Negative) Urine Bilirubin (Negative) Urine Urobilinogen (Normal) mg/dL Ur Leukocyte Esterase (Negative) Salicylates (15.0-30.0) mg/dL Urine Opiates Screen (Ppniim=538) ng/mL Ur Buprenorphine Scrn (Cutoff=5) ng/mL Acetaminophen (10-20) mcg/mL Ur Barbiturates Screen (Syazii=379) ng/mL Ur Phencyclidine Scrn (Cutoff=25) ng/mL Ur Amphetamines Screen (Xgwqez=0697) ng/mL U Benzodiazepines Scrn (Atdgzx=992) ng/mL Urine Cocaine Screen (Cutoff= 300) ng/mL U Marijuana (THC) Screen (Cutoff = 50) ng/mL Ur Drug Screen Interp Ethyl Alcohol (Less than 10) mg/dL Attestation Statement - Attestation Attestation: I, Yaniv Anderson DO, examined this patient [id number] and my medical decision-making was reviewed with Dr. Cooper Montgomery, Resident Physician. I agree with the documented findings, disposition and treatment plan as described except to the extent set forth below. I personally supervised and was present for the hopper/critical portions of the procedures completed by the resident documented below. Please see my progress notes for details. 43-year-old male presents emergency room from a rehabilitation facility. EMS was called to that facility secondary to the patient having seizure-like activity. He does have a remote history of seizures as well as diabetes. Patient was transported with no IV access attempts. They facility is directly across the street from the hospital. On arrival here the patient had dec erebrate posturing along with agonal breathing. Patient was immediately hooked up to the monitor as well as pulse ox machine. Heart rate and pulse ox were normal. Patient was protecting his airway at this time. His pupils were not reactive. Narcan was given and transport paranasal distribution. Patient has multiple scars across the anterior chest wall and extremities as well as the abdomen. IV access was attempted several times in the extremities as well as once in the EEG by myself. A interosseous line was placed by the resident physician left lower extremity anterior tibial crest. The Accu-Chek was collected and the patient had to repeat Accu-Cheks that were 17 and 20. Patient is appearing to have the altered mentation secondary to hypoglycemia. 2 A of dextrose were ordered and given at this time. Patient will be monitored. As the second amp of dextrose was infused to the interosseous line the patient started to wake up and is now conversing answering questions. Evaluation with CBC chemistry electrolytes as well as CPK will be added on to the patient's treatment at this point. Fluids will be provided and chest x-ray will be ordered. Patient is otherwise mentating back to baseline confirms that he is a type I diabetic 2100 Once the patient was fully awake and able to eat, his Accu-Cheks remain stable. Patient is not describing any suicidal ideation secondary to no family around him and continued decline in his health and well-being. Patient does not have any active plan to concern is noted that the hypoglycemic event here today with secondary to over injection of his insulin and not wanting to eat. Medical clearance to be completed and then evaluation will be established for psychiatric treatment. The patient does not have stabilization of his glucose he will be admitted for medical management and psychiatric consult them before. Patient is otherwise stable. Repeat Accu-Chek to be completed at this time 2200 Patient will be signed out to the overnight physician Dr. Menendez for completion of care and psychiatric evaluation. Patient is otherwise stable not this time at this hypoglycemic events. Patient is otherwise in no distress at the time of her shift ending.
[2019-02-16 18:30] LABS: Basophils % 0.3 %; Eosinophils # 0.1 K/mcL (0.0-0.6); Eosinophils % 1.3 %; Immature Granulocytes % 0.6 % (0-4); Lymphocytes % 15.7 %; Mean Corpuscular Hemoglobin 24.5 pg (28.0-33.3); Mean Corpuscular Volume 78.8 fL (83.0-100.0); Mean Platelet Volume 8.5 fL (9.4-12.4); Monocytes # 0.6 K/mcL (0.0-1.3); Monocytes % 8.7 %; Neutrophils # 4.6 K/mcL (1.6-8.9); Platelet Count 281 K/mcL (140-400); Red Blood Count 3.68 M/mcL (4.19-5.50); Red Cell Distribution Width 14.3 % (11.5-14.5); Segmented Neutrophils % 73.4 %; White Blood Count 6.3 K/mcL (4.3-11.1)
[2019-02-16 18:51] LABS: BUN/Creatinine Ratio 15 (6-26); Blood Urea Nitrogen 15 mg/dL (6-20); Calcium 8.4 mg/dL (8.6-10.3); Carbon Dioxide 24 mEq/L (23-29); Chloride 101 mEq/L (98-107); Creatine Kinase 77 Units/L (30-223); Glucose 150 mg/dL (70-105); Osmolality,Calculated 280 (280-300); Potassium 3.8 mEq/L (3.5-5.1); Sodium 133 mEq/L (136-145); Troponin I < 0.03 ng/mL (< 0.04); eGFR For African Americans > 60 (> 60); eGFR For Non-African Americans > 60 (> 60)
[2019-02-16 19:14] LABS: Acetaminophen < 10 mcg/mL (10-20); Ethanol < 10 mg/dL (Less than 10); Salicylate < 2.5 mg/dL (15.0-30.0)
[2019-02-16] MEDS ORDERED: D5% in 0.9% NACL 1,000 ML IVC SCH (19:15)
[2019-02-16 19:51] LABS: Bilirubin,Urine Negative (Negative); Blood,Urine Negative (Negative); Clarity,Urine Clear (Clear); Color,Urine Yellow (Yellow); Glucose,Urine (UA) 500 mg/dL (Normal); Ketones,Urine Negative (Negative); Leukocyte Esterase,Urine Negative (Negative); Nitrite,Urine Negative (Negative); Protein,Urine Negative (Neg-Trace); Specific Gravity,Urine 1.017 (1.010-1.025); Urobilinogen,Urine Normal (Normal)
[2019-02-16 20:04] LABS: Amphetamine Screen,Urine Negative ng/mL (Cutoff=1000); Barbiturate Screen,Urine Negative ng/mL (Cutoff=200); Benzodiazepines Screen,Urine Negative ng/mL (Cutoff=200); Cannabinoid Screen,Urine Negative ng/mL (Cutoff = 50); Cocaine Screen,Urine Negative ng/mL (Cutoff= 300); Opiate Screen,Urine Negative ng/mL (Cutoff=300); Phencyclidine Screen,Urine Negative ng/mL (Cutoff=25)
[2019-02-16] MEDS ORDERED: Ibuprofen 400 MG TABLET PO ONE (20:13)
--- NOTE | 2019-02-16 20:19 | Emergency Department Note ---
Disposition Clinical Impression: Hypoglycemic event in diabetes, Suicidal ideation Disposition: Still a Patient Condition: Fair Forms: ED Satisfaction Letter Time of Disposition: 21:34 General Adult HPI - General Chief complaint: ED Seizure Stated complaint: seizure Time Seen by Provider: 02/16/19 18:02 Source: EMS Mode of arrival: EMS Limitations: no limitations Nursing Notes Reviewed: Yes Vital Signs Reviewed: Yes - History of Present Illness HPI Narrative: Patient is a 43-year-old male with past medical history of insulin-dependent diabetes, substance abuse and seizures presents to the ED for evaluation of 30 minutes of seizure-like activity. Patient was found in his room shaking with all limbs and worse positive to voice or pain. He arrived by squad. On arrival patient was placed on monitoring and a stat glucose was checked which was in the teens. He was rechecked and it was in the 20s. Pain Scale: 0 - Related Data Home Medications Medication Instructions Recorded Confirmed Carvedilol [Coreg] 25 mg PO BID 02/07/19 02/16/19 Lisinopril [Zestril] 20 mg PO DAILY 02/07/19 02/16/19 NIFEdipine [Adalat cc] 60 mg PO DAILY 02/07/19 02/16/19 Pantoprazole Sodium [Protonix] 40 mg PO BID 02/07/19 02/16/19 Quetiapine Fumarate [Seroquel] 400 mg PO HS 02/07/19 02/16/19 Insulin ASPART [NovoLOG] 10 unit SQ TIDWM 02/09/19 02/16/19 Insulin Glargine [Lantus] 20 unit SQ HS 02/09/19 02/16/19 Amitriptyline HCl 150 mg PO HS 02/16/19 02/16/19 Gabapentin [Neurontin] 300 mg PO TID 02/16/19 02/16/19 Quetiapine Fumarate [Seroquel] 50 mg PO HS 02/16/19 02/16/19 Previous Rx's Medication Instructions Recorded Amoxicillin/Clavulanate [Augmentin] 875 mg PO BIDWM #19 tablet 02/09/19 Allergies Allergy/AdvReac Type Severity Reaction Status Date / Time acetaminophen [From Vicodin] AdvReac Nausea Verified 06/03/16 14:06 hydrocodone [From Vicodin] AdvReac Nausea Verified 06/03/16 14:06 Limitations: ROS unobtainable due to patients medical condition Past Medical History - Past Medical History Medical history: Reports: coronary artery disease, diabetes, hypertension Surgical history: Reports: non-contributory Psychiatric history: Reports: anxiety, depression - Social History Smoking Status: Current every day smoker Smokeless Tobacco Status: No Alcohol use: Reports: none Drug use: Reports: none Physical Exam - General Limitations: no limitations, altered mental status General appearance: other (agonal breathing) - Head Head exam: atraumatic, normocephalic, normal inspection - Eye Eye exam: Present: normal appearance, PERRL (3mm bilaterally and minimally reactive), EOMI - ENT ENT exam: normal exam, normal oropharynx, mucous membranes moist - Neck Neck exam: Present: normal inspection, full ROM, trachea midline - Chest Chest inspection: Present: normal inspection, symmetric chest wall rise. Absent: tenderness - Respiratory Respiratory exam: Present: normal lung sounds bilaterally. Absent: respiratory distress, wheezes - Cardiovascular Cardiovascular exam: Present: normal rhythm, tachycardia, normal heart sounds, +S1, +S2 - Abdominal Exam Abdominal exam: Present: soft, Non-Tender. Absent: tenderness, distention, guarding, rebound, rigidity - Extremities Exam Extremities exam: Present: normal inspection, normal capillary refill. Absent: tenderness, pedal edema - Back Exam Back exam: Present: normal inspection. Absent: tenderness - Skin Skin exam: Present: intact, diaphoresis, pallor Course Course Narrative: Patient presented for concern for seizure-like activity. He is found to be severely hypoglycemic. Initially it was difficult to obtain IV access at first that he had an IO placed in his left tibia by Dr. Acharya. He is given 2 A of D50 with immediate resolution of symptoms. The patient states that he took his typical insulin today however he has not been eating sees been depressed. He denies that this was intentional. Denies any other symptoms at this time. He undergo evaluation with basic labs as well as a cardiac workup will continue to check his sugar every 30 minutes and started him on dextrose-containing solution. - Reevaluation(s) Reevaluation #1: Patient's lab work was remarkable for hemoglobin of 9.0 which appears chronic. He is mildly hyponatremic at 133. Kidney function was good. Urinalysis significant for glucose otherwise negative for infection. Chest x-ray was unremarkable. While working the patient appeared admitted to suicidal ideation states he does not want to live anymore his family is not talking to him he does not feel like he knows where he is going in life. States she would like to seek out help. Denies having a plan. At this time additional lab work was added on to medically clear the patient including a urine. Time: 21:32 Reevaluation #2: Patient glucose is stable after over one hour of being off dextrose containing solutions. 1A Team will be called for evaluation of the patient for his SI. Time: 21:33 Vital Signs Temperature 97.0 F L 02/16/19 17:51 Pulse Rate 125 02/16/19 17:51 Respiratory Rate 22 02/16/19 17:51 Blood Pressure 200/100 02/16/19 17:51 O2 Sat by Pulse Oximetry 100 02/16/19 17:51 Temperature 97.0 F L 02/16/19 17:51 Pulse Rate 107 02/16/19 20:00 Respiratory Rate 16 02/16/19 20:00 Blood Pressure 156/98 02/16/19 20:00 O2 Sat by Pulse Oximetry 100 02/16/19 20:00 Oxygen Delivery Oxygen Delivery Room Air Medical Decision Making - Medical Records Medical records reviewed: Yes I reviewed the patient's medical records. - Lab Data Lab results reviewed: Yes I reviewed the patient's lab results. Result diagrams: 02/16/19 18:08 02/16/19 18:08 Lab Results 02/16/19 02/16/19 02/16/19 Range/Units 18:08 18:08 19:33 WBC 6.3 (4.3-11.1) K/mcL RBC 3.68 L (4.19-5.50) M/mcL Hgb 9.0 L (12.9-16.9) g/dL Hct 29.0 L (37.5-50.1) % MCV 78.8 L (83.0-100.0) fL MCH 24.5 L (28.0-33.3) pg MCHC 31.0 L (31.6-35.5) g/dL RDW 14.3 (11.5-14.5) % Plt Count 281 (140-400) K/mcL MPV 8.5 L (9.4-12.4) fL Immature Gran % 0.6 (0-4) % Seg Neutrophils % 73.4 % Lymphocytes % 15.7 % Monocytes % 8.7 % Eosinophils % 1.3 % Basophils % 0.3 % Neutrophils # 4.6 (1.6-8.9) K/mcL Lymphocytes # 1.0 (0.6-4.6) K/mcL Monocytes # 0.6 (0.0-1.3) K/mcL Eosinophils # 0.1 (0.0-0.6) K/mcL Basophils # 0.0 (0.0-0.2) K/mcL Sodium 133 L (136-145) mEq/L Potassium 3.8 (3.5-5.1) mEq/L Chloride 101 (98-107) mEq/L Carbon Dioxide 24 (23-29) mEq/L BUN 15 (6-20) mg/dL Creatinine 1.00 (0.70-1.30) mg/dL Est GFR ( Amer) > 60 (> 60) Est GFR (Non-Af Amer) > 60 (> 60) BUN/Creatinine Ratio 15 (6-26) Glucose 150 H (70-105) mg/dL POC Glucose (70-99) mg/dL Calculated Osmolality 280 (280-300) Calcium 8.4 L (8.6-10.3) mg/dL Creatine Kinase 77 (30-223) Units/L Troponin I < 0.03 (< 0.04) ng/mL Urine Color Yellow (Yellow) Urine Clarity Clear (Clear) Urine pH 6.0 (5.0-8.0) pH Units Ur Specific [place] 1.017 (1.010-1.025) Urine Protein Negative (Neg-Trace) mg/dL Urine Glucose (UA) 500 H (Normal) mg/dL Urine Ketones Negative (Negative) mg/dL Urine Blood Negative (Negative) Urine Nitrite Negative (Negative) Urine Bilirubin Negative (Negative) Urine Urobilinogen Normal (Normal) mg/dL Ur Leukocyte Esterase Negative (Negative) Salicylates < 2.5 L (15.0-30.0) mg/dL Urine Opiates Screen (Dawmuq=714) ng/mL Ur Buprenorphine Scrn (Cutoff=5) ng/mL Acetaminophen < 10 L (10-20) mcg/mL Ur Barbiturates Screen (Xfaewo=533) ng/mL Ur Phencyclidine Scrn (Cutoff=25) ng/mL Ur Amphetamines Screen (Mdlfkx=5883) ng/mL U Benzodiazepines Scrn (Tbadkk=476) ng/mL Urine Cocaine Screen (Cutoff= 300) ng/mL U Marijuana (THC) Screen (Cutoff = 50) ng/mL Ur Drug Screen Interp Ethyl Alcohol < 10 (Less than 10) mg/dL 02/16/19 02/16/19 02/16/19 Range/Units 19:33 20:06 20:47 WBC (4.3-11.1) K/mcL RBC (4.19-5.50) M/mcL Hgb (12.9-16.9) g/dL Hct (37.5-50.1) % MCV (83.0-100.0) fL MCH (28.0-33.3) pg MCHC (31.6-35.5) g/dL RDW (11.5-14.5) % Plt Count (140-400) K/mcL MPV (9.4-12.4) fL Immature Gran % (0-4) % Seg Neutrophils % % Lymphocytes % % Monocytes % % Eosinophils % % Basophils % % Neutrophils # (1.6-8.9) K/mcL Lymphocytes # (0.6-4.6) K/mcL Monocytes # (0.0-1.3) K/mcL Eosinophils # (0.0-0.6) K/mcL Basophils # (0.0-0.2) K/mcL Sodium (136-145) mEq/L Potassium (3.5-5.1) mEq/L Chloride (98-107) mEq/L Carbon Dioxide (23-29) mEq/L BUN (6-20) mg/dL Creatinine (0.70-1.30) mg/dL Est GFR ( Amer) (> 60) Est GFR (Non-Af Amer) (> 60) BUN/Creatinine Ratio (6-26) Glucose (70-105) mg/dL POC Glucose 299 H 334 H (70-99) mg/dL Calculated Osmolality (280-300) Calcium (8.6-10.3) mg/dL Creatine Kinase (30-223) Units/L Troponin I (< 0.04) ng/mL Urine Color (Yellow) Urine Clarity (Clear) Urine pH (5.0-8.0) pH Units Ur Specific [place] (1.010-1.025) Urine Protein (Neg-Trace) mg/dL Urine Glucose (UA) (Normal) mg/dL Urine Ketones (Negative) mg/dL Urine Blood (Negative) Urine Nitrite (Negative) Urine Bilirubin (Negative) Urine Urobilinogen (Normal) mg/dL Ur Leukocyte Esterase (Negative) Salicylates (15.0-30.0) mg/dL Urine Opiates Screen Negative (Ezrmjx=010) ng/mL Ur Buprenorphine Scrn Negative (Cutoff=5) ng/mL Acetaminophen (10-20) mcg/mL Ur Barbiturates Screen Negative (Bdyrmq=573) ng/mL Ur Phencyclidine Scrn Negative (Cutoff=25) ng/mL Ur Amphetamines Screen Negative (Ownrdh=4086) ng/mL U Benzodiazepines Scrn Negative (Ibdwou=899) ng/mL Urine Cocaine Screen Negative (Cutoff= 300) ng/mL U Marijuana (THC) Screen Negative (Cutoff = 50) ng/mL Ur Drug Screen Interp See Below Ethyl Alcohol (Less than 10) mg/dL 02/16/19 Range/Units 21:22 WBC (4.3-11.1) K/mcL RBC (4.19-5.50) M/mcL Hgb (12.9-16.9) g/dL Hct (37.5-50.1) % MCV (83.0-100.0) fL MCH (28.0-33.3) pg MCHC (31.6-35.5) g/dL RDW (11.5-14.5) % Plt Count (140-400) K/mcL MPV (9.4-12.4) fL Immature Gran % (0-4) % Seg Neutrophils % % Lymphocytes % % Monocytes % % Eosinophils % % Basophils % % Neutrophils # (1.6-8.9) K/mcL Lymphocytes # (0.6-4.6) K/mcL Monocytes # (0.0-1.3) K/mcL Eosinophils # (0.0-0.6) K/mcL Basophils # (0.0-0.2) K/mcL Sodium (136-145) mEq/L Potassium (3.5-5.1) mEq/L Chloride (98-107) mEq/L Carbon Dioxide (23-29) mEq/L BUN (6-20) mg/dL Creatinine (0.70-1.30) mg/dL Est GFR ( Amer) (> 60) Est GFR (Non-Af Amer) (> 60) BUN/Creatinine Ratio (6-26) Glucose (70-105) mg/dL POC Glucose 331 H (70-99) mg/dL Calculated Osmolality (280-300) Calcium (8.6-10.3) mg/dL Creatine Kinase (30-223) Units/L Troponin I (< 0.04) ng/mL Urine Color (Yellow) Urine Clarity (Clear) Urine pH (5.0-8.0) pH Units Ur Specific [place] (1.010-1.025) Urine Protein (Neg-Trace) mg/dL Urine Glucose (UA) (Normal) mg/dL Urine Ketones (Negative) mg/dL Urine Blood (Negative) Urine Nitrite (Negative) Urine Bilirubin (Negative) Urine Urobilinogen (Normal) mg/dL Ur Leukocyte Esterase (Negative) Salicylates (15.0-30.0) mg/dL Urine Opiates Screen (Leeboj=710) ng/mL Ur Buprenorphine Scrn (Cutoff=5) ng/mL Acetaminophen (10-20) mcg/mL Ur Barbiturates Screen (Mmfquk=098) ng/mL Ur Phencyclidine Scrn (Cutoff=25) ng/mL Ur Amphetamines Screen (Ebtamj=5538) ng/mL U Benzodiazepines Scrn (Mmqvxq=765) ng/mL Urine Cocaine Screen (Cutoff= 300) ng/mL U Marijuana (THC) Screen (Cutoff = 50) ng/mL Ur Drug Screen Interp Ethyl Alcohol (Less than 10) mg/dL - Radiology Data Radiology results reviewed: Yes I reviewed the patient's radiology results. Chest X-Ray 02/16/19 18:08 IMPRESSION: No significant findings in the chest. Improving aeration from prior exam. D/ / Jaswinder Jaeger MD / Jaswinder Jaeger MD Interpreting Provider: Jaswinder Jaeger MD - EKG Data EKG #1 EKG attestation: Yes I reviewed and interpreted this EKG. EKG results narrative: EKG done at 17:51 shows sinus tachycardia rate 1 24 bpm. Normal axis. Intervals within normal limits. No signs of ST elevation, ST depression or Q waves present. Patient does have isolated T-wave inversion in lead 3. S.B.A.R. - S.B.A.R. Situation: Demographics, MOA Background: Presenting Complaint, Relevant PMH, Meds, & Allergies Assessment: Vital Signs, Course and respsone to treatment, Exam Concerns, Patient/Family Expectation, Pertinant Lab Results, Outstanding Labs Recommendation: Barrier(s) to disposition, Recommendation based on pending studies, treatments, or consults (Pending evaluation by 1A Team. ) S.B.A.R. Report Given to: Halina Butler Repor Time: 22:02 Attestation Statement - Attestation Attestation: I, Yaniv Anderson DO, examined this patient [id number] and my medical decision-making was reviewed with Dr. Cooper Montgomery, Resident Physician. I agree with the documented findings, disposition and treatment plan as described except to the extent set forth below. I personally supervised and was present for the hopper/critical portions of the procedures completed by the resident documented below. Please see my progress notes for details.
--- NOTE | 2019-02-17 00:02 | Emergency Department Note ---
Disposition Clinical Impression: Hypoglycemic event in diabetes, Suicidal ideation Disposition: Admitted As Inpatient Condition: Good Time of Disposition: 00:51 General Adult HPI - General Chief complaint: ED Seizure Stated complaint: SI/seizure Time Seen by Provider: 02/16/19 18:02 Source: EMS Mode of arrival: EMS Limitations: no limitations, altered mental status - History of Present Illness HPI Narrative: Patient was signed out to me pending psychiatric evaluation. Please refer to Dr. Pacheco's note for further history and physical. Pain Scale: 0 - Related Data Home Medications Medication Instructions Recorded Confirmed Carvedilol [Coreg] 25 mg PO BID 02/07/19 02/17/19 Lisinopril [Zestril] 20 mg PO DAILY 02/07/19 02/17/19 NIFEdipine [Adalat cc] 60 mg PO DAILY 02/07/19 02/17/19 Pantoprazole Sodium [Protonix] 40 mg PO BID 02/07/19 02/17/19 Quetiapine Fumarate [Seroquel] 400 mg PO HS 02/07/19 02/17/19 Insulin ASPART [NovoLOG] 10 unit SQ TIDWM 02/09/19 02/17/19 Insulin Glargine [Lantus] 20 unit SQ HS 02/09/19 02/17/19 Amitriptyline HCl 150 mg PO HS 02/16/19 02/17/19 Gabapentin [Neurontin] 300 mg PO TID 02/16/19 02/17/19 Quetiapine Fumarate [Seroquel] 50 mg PO HS 02/16/19 02/17/19 Previous Rx's Medication Instructions Recorded Ferrous Sulfate 325 mg PO DAILY #30 tablet 02/17/19 Allergies Allergy/AdvReac Type Severity Reaction Status Date / Time acetaminophen [From Vicodin] AdvReac Nausea Verified 02/17/19 18:50 hydrocodone [From Vicodin] AdvReac Nausea Verified 02/17/19 18:50 Past Medical History - Past Medical History Medical history: Reports: coronary artery disease, diabetes, hypertension Surgical history: Reports: non-contributory Psychiatric history: Reports: anxiety, depression - Social History Smoking Status: Current every day smoker Smokeless Tobacco Status: No Alcohol use: Reports: none Drug use: Reports: none Physical Exam - General Limitations: no limitations, altered mental status General appearance: other (agonal breathing) Course Vital Signs Temperature 97.0 F L 02/16/19 17:51 Pulse Rate 125 02/16/19 17:51 Respiratory Rate 22 02/16/19 17:51 Blood Pressure 200/100 02/16/19 17:51 O2 Sat by Pulse Oximetry 100 02/16/19 17:51 Temperature 97.0 F L 02/16/19 17:51 Pulse Rate 107 02/16/19 20:00 Respiratory Rate 16 02/16/19 20:00 Blood Pressure 156/98 02/16/19 20:00 O2 Sat by Pulse Oximetry 100 02/16/19 20:00 Oxygen Delivery Oxygen Delivery Room Air Medical Decision Making - MDM Narrative Medical decision making narrative: Patient presented here with a low blood sugar. EXT never had a seizure. Does have history of type 2 diabetes said he did not eat today does take insulin and he said normally when he does not he does have these episodes. But patient said that he is suicidal. [place] slip as on the chart. Psychiatry saw the patient and they want him admitted medically for 24 hours to watch his blood sugar is and they will take him to 1A after that. She did get food here his blood sugars have been stable here. Patient does full better at this time. Spoke with the hospitalist Dr. Mayes. Who agreed to accept the patient to their service. Patient is admitted in stable condition. Chest X-Ray 02/16/19 18:08 IMPRESSION: No significant findings in the chest. Improving aeration from prior exam. D/ / Jaswinder Jaeger MD / Jaswinder Jaeger MD Interpreting Provider: Jaswinder Jaeger MD - Lab Data Result diagrams: 02/17/19 05:49 02/17/19 05:49 Lab Results 02/16/19 02/16/19 02/16/19 Range/Units 18:08 18:08 19:33 WBC 6.3 (4.3-11.1) K/mcL RBC 3.68 L (4.19-5.50) M/mcL Hgb 9.0 L (12.9-16.9) g/dL Hct 29.0 L (37.5-50.1) % MCV 78.8 L (83.0-100.0) fL MCH 24.5 L (28.0-33.3) pg MCHC 31.0 L (31.6-35.5) g/dL RDW 14.3 (11.5-14.5) % Plt Count 281 (140-400) K/mcL MPV 8.5 L (9.4-12.4) fL Immature Gran % 0.6 (0-4) % Seg Neutrophils % 73.4 % Lymphocytes % 15.7 % Monocytes % 8.7 % Eosinophils % 1.3 % Basophils % 0.3 % Neutrophils # 4.6 (1.6-8.9) K/mcL Lymphocytes # 1.0 (0.6-4.6) K/mcL Monocytes # 0.6 (0.0-1.3) K/mcL Eosinophils # 0.1 (0.0-0.6) K/mcL Basophils # 0.0 (0.0-0.2) K/mcL Sodium 133 L (136-145) mEq/L Potassium 3.8 (3.5-5.1) mEq/L Chloride 101 (98-107) mEq/L Carbon Dioxide 24 (23-29) mEq/L BUN 15 (6-20) mg/dL Creatinine 1.00 (0.70-1.30) mg/dL Est GFR ( Amer) > 60 (> 60) Est GFR (Non-Af Amer) > 60 (> 60) BUN/Creatinine Ratio 15 (6-26) Glucose 150 H (70-105) mg/dL POC Glucose (70-99) mg/dL Calculated Osmolality 280 (280-300) Calcium 8.4 L (8.6-10.3) mg/dL Creatine Kinase 77 (30-223) Units/L Troponin I < 0.03 (< 0.04) ng/mL Urine Color Yellow (Yellow) Urine Clarity Clear (Clear) Urine pH 6.0 (5.0-8.0) pH Units Ur Specific [place] 1.017 (1.010-1.025) Urine Protein Negative (Neg-Trace) mg/dL Urine Glucose (UA) 500 H (Normal) mg/dL Urine Ketones Negative (Negative) mg/dL Urine Blood Negative (Negative) Urine Nitrite Negative (Negative) Urine Bilirubin Negative (Negative) Urine Urobilinogen Normal (Normal) mg/dL Ur Leukocyte Esterase Negative (Negative) Salicylates < 2.5 L (15.0-30.0) mg/dL Urine Opiates Screen (Yfiqhk=935) ng/mL Ur Buprenorphine Scrn (Cutoff=5) ng/mL Acetaminophen < 10 L (10-20) mcg/mL Ur Barbiturates Screen (Lvsobj=657) ng/mL Ur Phencyclidine Scrn (Cutoff=25) ng/mL Ur Amphetamines Screen (Tkyucx=4596) ng/mL U Benzodiazepines Scrn (Efiwff=643) ng/mL Urine Cocaine Screen (Cutoff= 300) ng/mL U Marijuana (THC) Screen (Cutoff = 50) ng/mL Ur Drug Screen Interp Ethyl Alcohol < 10 (Less than 10) mg/dL 02/16/19 02/16/19 02/16/19 Range/Units 19:33 20:06 20:47 WBC (4.3-11.1) K/mcL RBC (4.19-5.50) M/mcL Hgb (12.9-16.9) g/dL Hct (37.5-50.1) % MCV (83.0-100.0) fL MCH (28.0-33.3) pg MCHC (31.6-35.5) g/dL RDW (11.5-14.5) % Plt Count (140-400) K/mcL MPV (9.4-12.4) fL Immature Gran % (0-4) % Seg Neutrophils % % Lymphocytes % % Monocytes % % Eosinophils % % Basophils % % Neutrophils # (1.6-8.9) K/mcL Lymphocytes # (0.6-4.6) K/mcL Monocytes # (0.0-1.3) K/mcL Eosinophils # (0.0-0.6) K/mcL Basophils # (0.0-0.2) K/mcL Sodium (136-145) mEq/L Potassium (3.5-5.1) mEq/L Chloride (98-107) mEq/L Carbon Dioxide (23-29) mEq/L BUN (6-20) mg/dL Creatinine (0.70-1.30) mg/dL Est GFR ( Amer) (> 60) Est GFR (Non-Af Amer) (> 60) BUN/Creatinine Ratio (6-26) Glucose (70-105) mg/dL POC Glucose 299 H 334 H (70-99) mg/dL Calculated Osmolality (280-300) Calcium (8.6-10.3) mg/dL Creatine Kinase (30-223) Units/L Troponin I (< 0.04) ng/mL Urine Color (Yellow) Urine Clarity (Clear) Urine pH (5.0-8.0) pH Units Ur Specific [place] (1.010-1.025) Urine Protein (Neg-Trace) mg/dL Urine Glucose (UA) (Normal) mg/dL Urine Ketones (Negative) mg/dL Urine Blood (Negative) Urine Nitrite (Negative) Urine Bilirubin (Negative) Urine Urobilinogen (Normal) mg/dL Ur Leukocyte Esterase (Negative) Salicylates (15.0-30.0) mg/dL Urine Opiates Screen Negative (Iqskcz=504) ng/mL Ur Buprenorphine Scrn Negative (Cutoff=5) ng/mL Acetaminophen (10-20) mcg/mL Ur Barbiturates Screen Negative (Iwwqbr=491) ng/mL Ur Phencyclidine Scrn Negative (Cutoff=25) ng/mL Ur Amphetamines Screen Negative (Vftqqr=2579) ng/mL U Benzodiazepines Scrn Negative (Jikaqs=611) ng/mL Urine Cocaine Screen Negative (Cutoff= 300) ng/mL U Marijuana (THC) Screen Negative (Cutoff = 50) ng/mL Ur Drug Screen Interp See Below Ethyl Alcohol (Less than 10) mg/dL 02/16/19 Range/Units 21:22 WBC (4.3-11.1) K/mcL RBC (4.19-5.50) M/mcL Hgb (12.9-16.9) g/dL Hct (37.5-50.1) % MCV (83.0-100.0) fL MCH (28.0-33.3) pg MCHC (31.6-35.5) g/dL RDW (11.5-14.5) % Plt Count (140-400) K/mcL MPV (9.4-12.4) fL Immature Gran % (0-4) % Seg Neutrophils % % Lymphocytes % % Monocytes % % Eosinophils % % Basophils % % Neutrophils # (1.6-8.9) K/mcL Lymphocytes # (0.6-4.6) K/mcL Monocytes # (0.0-1.3) K/mcL Eosinophils # (0.0-0.6) K/mcL Basophils # (0.0-0.2) K/mcL Sodium (136-145) mEq/L Potassium (3.5-5.1) mEq/L Chloride (98-107) mEq/L Carbon Dioxide (23-29) mEq/L BUN (6-20) mg/dL Creatinine (0.70-1.30) mg/dL Est GFR ( Amer) (> 60) Est GFR (Non-Af Amer) (> 60) BUN/Creatinine Ratio (6-26) Glucose (70-105) mg/dL POC Glucose 331 H (70-99) mg/dL Calculated Osmolality (280-300) Calcium (8.6-10.3) mg/dL Creatine Kinase (30-223) Units/L Troponin I (< 0.04) ng/mL Urine Color (Yellow) Urine Clarity (Clear) Urine pH (5.0-8.0) pH Units Ur Specific [place] (1.010-1.025) Urine Protein (Neg-Trace) mg/dL Urine Glucose (UA) (Normal) mg/dL Urine Ketones (Negative) mg/dL Urine Blood (Negative) Urine Nitrite (Negative) Urine Bilirubin (Negative) Urine Urobilinogen (Normal) mg/dL Ur Leukocyte Esterase (Negative) Salicylates (15.0-30.0) mg/dL Urine Opiates Screen (Bbtffk=081) ng/mL Ur Buprenorphine Scrn (Cutoff=5) ng/mL Acetaminophen (10-20) mcg/mL Ur Barbiturates Screen (Ypzckn=844) ng/mL Ur Phencyclidine Scrn (Cutoff=25) ng/mL Ur Amphetamines Screen (Ptdiup=9034) ng/mL U Benzodiazepines Scrn (Cdsxue=906) ng/mL Urine Cocaine Screen (Cutoff= 300) ng/mL U Marijuana (THC) Screen (Cutoff = 50) ng/mL Ur Drug Screen Interp Ethyl Alcohol (Less than 10) mg/dL Attestation Statement - Attestation Attestation: I examined this patient and my medical decision-making was reviewed [facility]. I agree with the documented findings, disposition and treatment plan as described except to the extent set forth below. Patient 43-year-old gentleman signed out pending the results of 1A evaluation patient was evaluated by Ia but due to the patient having episodes of hypoglycemia they requested the patient be admitted to the hospitalist service. The case was discussed with the hospitalist service and the patient will be admitted medically Exam patient awake alert no acute distress Medical decision management after the evaluation by Ia and the patient was requ ested to be admitted to the medical service.
[2019-02-17] MEDS ORDERED: Naloxone 0.4 MG/ML INJ IVP PRN (05:39)
[2019-02-17] MEDS ORDERED: Dextrose Gel 15 GM/37.5 ML TUBE PO PRN ×2 (05:41)
[2019-02-17] MEDS ORDERED: *HR* Dextrose 50 % in Water (Syg) 50 ML SYRINGE IVP PRN (05:41)
[2019-02-17] MEDS ORDERED: D5% in Water 1,000 ML IVC PRN (05:41)
[2019-02-17] MEDS ORDERED: 0.9 % Sodium Chloride 1,000 ML IVC SCH (05:45)
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
[2019-02-17 06:43] LABS: Hematocrit 28.1 % (37.5-50.1); Hemoglobin 8.9 g/dL (12.9-16.9); Mean Corpuscular HGB Conc 31.7 g/dL (31.6-35.5); Mean Corpuscular Hemoglobin 24.5 pg (28.0-33.3); Mean Corpuscular Volume 77.2 fL (83.0-100.0); Mean Platelet Volume 8.3 fL (9.4-12.4); Platelet Count 289 K/mcL (140-400); Red Blood Count 3.64 M/mcL (4.19-5.50); Red Cell Distribution Width 14.1 % (11.5-14.5); White Blood Count 5.6 K/mcL (4.3-11.1)
[2019-02-17 07:04] LABS: BUN/Creatinine Ratio 12 (6-26); Blood Urea Nitrogen 11 mg/dL (6-20); Calcium 8.1 mg/dL (8.6-10.3); Carbon Dioxide 26 mEq/L (23-29); Chloride 102 mEq/L (98-107); Glucose 108 mg/dL (70-105); Osmolality,Calculated 276 (280-300); Potassium 4.5 mEq/L (3.5-5.1); Sodium 133 mEq/L (136-145); eGFR For African Americans > 60 (> 60); eGFR For Non-African Americans > 60 (> 60)
[2019-02-17 07:20] LABS: % Iron Saturation 8 % (20-55); Iron 25 mcg/dL (65-175); Transferrin 213 mg/dL (203-362)
[2019-02-17 07:40] LABS: Ferritin 16 ng/mL (20-250)
[2019-02-17 07:55] VITALS: BP 156/93
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
[2019-02-17] MEDS ORDERED: *HR* Buprenorphine HCl 2 MG SUBLINGUAL TABLET SL SCH (10:16)
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
[2019-02-17] MEDS: Insulin LISPRO 300 UNITS/3 ML VIAL SQ SCH ×2 (11:23→12:28)
[2019-02-17] MEDS ORDERED: *HR* Dextrose 50 % in Water (Syg) 50 ML SYRINGE IVC ONE (14:49)
[2019-02-17] MEDS ORDERED: Gabapentin 300 MG CAPSULE PO SCH (15:00)
[2019-02-17] MEDS ORDERED: Insulin LISPRO 300 UNITS/3 ML VIAL SQ SCH (21:00)
--- NOTE | 2019-02-19 23:07 | Electrocardiograph Report ---
[facility] Test Date: 2019-02-16 Pat Name: Rick Arthur Department: EXAM20 Room: 3A23 Gender: M [employer]ive[employer]: : 1975 Requested By: Cooper Montgomery Order Number: [id number] Reading MD: Alfredo Wolfe Measurements Intervals [place] Rate: 99 P: 23 MN: 197 QRS: 57 QRSD: 87 T: -1 QT: 357 QTc: 459 Interpretive Statements Sinus rhythm Borderline prolonged MN interval Baseline wander in lead(s) V1 Electronically Signed On 02-19-2019 23:05:56 EDT by Alfredo Wolfe
== END 2019-02-17 14:50 ==
LOC: 3ANU 17:42 → EMEROOARM 17:42 → SUATTDRO 02-17 01:07 → 3ANU 02-17 02:40
PROVIDERS: ADMIT Family Medicine; ATTEND Internal Medicine

== ENCOUNTER 2019-02-17 13:30 | Inpatient (IN) ==
[2019-02-17] MEDS ORDERED: *HR* LORazepam 2 MG/ML VIAL IM PRN (14:35)
[2019-02-17] MEDS ORDERED: Ibuprofen 400 MG TABLET PO PRN (14:35)
[2019-02-17] MEDS ORDERED: Haloperidol Lactate 5 MG/ML VIAL IM PRN (14:35)
[2019-02-17] MEDS ORDERED: Mag Hydrox/Al Hydrox/Simeth 30 ML UDC PO PRN (14:35)
[2019-02-17] MEDS ORDERED: *HR* LORazepam 1 MG TABLET PO PRN (14:35)
[2019-02-17] MEDS ORDERED: MOM Conc 10 ML UD.LIQ PO PRN (14:35)
[2019-02-17] MEDS ORDERED: Dextrose Gel 15 GM/37.5 ML TUBE PO PRN ×2 (15:06)
[2019-02-17] MEDS: Insulin LISPRO 300 UNITS/3 ML VIAL SQ SCH ×2 (16:40→21:03)
[2019-02-17] MEDS ORDERED: NON-FORMULARY MEDICATION 1 EACH EACH (Quetiapine Fumarate [Seroquel] 400 MG) PO SCH (21:00)
[2019-02-17] MEDS: Gabapentin 300 MG CAPSULE PO SCH (21:02)
[2019-02-17] MEDS: Insulin DETEMIR 100 UNIT/ML X5UNITS SQ SCH (21:05)
[2019-02-17] MEDS ORDERED: *HR* Buprenorphine HCl 8 MG TAB.SUBL SL ONE (21:30)
[2019-02-18] MEDS: Gabapentin 300 MG CAPSULE PO SCH ×3 (09:14→20:44)
[2019-02-18] MEDS: Lisinopril 20 MG TABLET PO SCH (09:16)
[2019-02-18] MEDS: NIFEdipine XL (24 HR) 30 MG TAB.ER.24 PO SCH (09:16)
[2019-02-18] MEDS: Insulin LISPRO 300 UNITS/3 ML VIAL SQ SCH ×4 (09:16→22:49)
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
[2019-02-18] MEDS: Insulin DETEMIR 100 UNIT/ML X5UNITS SQ SCH (20:46)
[2019-02-19] MEDS: Insulin LISPRO 300 UNITS/3 ML VIAL SQ SCH ×4 (09:11→20:47)
[2019-02-19] MEDS: Lisinopril 20 MG TABLET PO SCH (09:12)
[2019-02-19] MEDS: Gabapentin 300 MG CAPSULE PO SCH ×3 (09:19→20:45)
[2019-02-19] MEDS: NIFEdipine XL (24 HR) 30 MG TAB.ER.24 PO SCH (09:20)
--- NOTE | 2019-02-19 10:08 | Psychiatry Progress Note ---
Date of Encounter: 02/19/19 Time of Encounter: 09:00 Subjective Interval history: Client seen at bedside. He appeared anxious, agitated and restless. He reports mood as "anxious". Client denies suicide ideation/plan/intent. Nurse note shows 8 mg Subutex scheduled for tonight. OARRS check shows client last prescribed Subuxone on 10/30/[address] Sixto Phelan in [place], [place]. Client was persistent in requesting Subutex. Client reports getting Subutex prescription last month. He reports withdrawal symptoms of diarrhea last night, headache since waking up and restlessness. Discussed clients treatment goals and Subutex prescription history. Client had concerns about diabetic diet and need to shave. Agreed to let client shave with supervision and explained the need for diabetic diet. Review of Systems Constitutional: Denies: fever, night sweats Cardiovascular: Denies: chest pain Respiratory: Denies: cough, wheezes Gastrointestinal: Reports: nausea, diarrhea Musculoskeletal: Denies: joint swelling, myalgia Neurological: Reports: headache Psychiatric: Reports: depression, anxiety, abnormal sleep pattern, change in appetite, mood swings. Denies: suicidal ideation, homicidal ideation, auditory hallucinations, visual hallucinations Results - Vital Signs Vital Signs: Temp Pulse Resp BP Pulse Ox 94.7 F L 103 18 102/65 99 02/18/19 21:00 02/18/19 21:00 02/18/19 21:00 02/18/19 21:00 02/18/19 21:00 - Labs Labs: Laboratory Results - last 24 hr 02/18/19 02/18/19 02/18/19 12:07 16:52 20:36 POC Glucose 191 H 286 H 193 H 02/19/19 08:56 POC Glucose 104 H Assessment and Plan (1) Bipolar disorder with depression Current visit: Yes Status: Acute Plan: Continue hospitalization, Suicide Precautions per unit protocol, Encourage participation in unit milieu, Monitor sleep, Monitor appetite Risks, benefits, side effects, alternatives discussed w/pt: Yes Patient agreeable to treatment: Yes - Attending Attestation I examined this patient and my medical decision-making was reviewed with the Resident Physician. I agree with the documented findings, disposition and treatment plan as described except to the extent set forth below. Met with patient. Agree with above. Psychiatry Exam - Constitutional Vitals: Temp Pulse Resp BP Pulse Ox 94.7 F L 103 18 102/65 99 02/18/19 21:00 02/18/19 21:00 02/18/19 21:00 02/18/19 21:00 02/18/19 21:00 General appearance: age & developmentally appropriate - Musculoskeletal Gait: normal Station: relaxed Strength & Tone: normal for patient - Psychiatric Patient Orientation: Yes Person, Yes Time, Yes Place, Yes Circumstance Level of alertness: Alert Behavior: nervous, anxious, restless Psychomotor activity: Increased Eye Contact: Maintains Eye Contact Mood Description: Anxious Affect description: congruent with mood Speech Volume: Normal Speech pattern: normal rate, normal rhythm, normal tone Language & Vocabulary: consistent with education Thought Process: Intact, Logical Thought Content: Yes Preoccupation Perceptual Disturbances: No Reacting to internal stimuli, No Auditory hallucinations, No Visual hallucinations Attention Span Ability: Capable of Sustained Attention Memory Description: Grossly Intact Patient Reliability: Questionable Historian Fund of knowledge: Yes average Intelligence Estimate: Average Judgment: Limited Insight: Partial
[2019-02-19] MEDS: hydrOXYzine pamoate 25 MG CAPSULE PO PRN (20:43)
[2019-02-19] MEDS: traZODone 50 MG TABLET PO PRN (20:44)
[2019-02-19] MEDS: Insulin DETEMIR 100 UNIT/ML X5UNITS SQ SCH (21:07)
[2019-02-20] MEDS: Insulin LISPRO 300 UNITS/3 ML VIAL SQ SCH ×4 (09:02→20:53)
[2019-02-20] MEDS: Gabapentin 300 MG CAPSULE PO SCH ×3 (09:03→20:57)
[2019-02-20] MEDS: Lisinopril 20 MG TABLET PO SCH (09:03)
[2019-02-20] MEDS: NIFEdipine XL (24 HR) 30 MG TAB.ER.24 PO SCH (09:03)
--- NOTE | 2019-02-20 13:50 | Psychiatry Progress Note ---
Date of Encounter: 02/20/19 Time of Encounter: 08:40 Subjective Interval history: Client seen at bedside. He appeared restless and anxious. Mood described as "sad and hopeless". He reports suicide ideation with plan. When asked how, he reports "take as many pills as I can". Depressed mood due to thinking about mother and sister. He again had diarrhea last night and was given Imodium, headache in which he was treated with prn medication. Reports he is in withdrawal from Subuoxone, however he wasn't prescribed it since December of this year for 7 day dose. He was given Subutex 8 mg last night. No plan to change current medication. Review of Systems Constitutional: Denies: fever, chills, weight change, night sweats Cardiovascular: Denies: chest pain, palpitations Respiratory: Denies: dyspnea, wheezes Gastrointestinal: Reports: diarrhea Musculoskeletal: Denies: joint pain, myalgia Neurological: Reports: headache. Denies: confusion, memory loss Psychiatric: Reports: depression, anxiety, abnormal sleep pattern, suicidal ideation, change in appetite, hopelessness, mood swings. Denies: homicidal ideation, auditory hallucinations, visual hallucinations Results - Vital Signs Vital Signs: Temp Pulse Resp BP Pulse Ox 97.4 F L 104 16 113/74 97 02/20/19 09:00 02/20/19 09:00 02/20/19 09:00 02/20/19 09:00 02/20/19 09:00 - Labs Labs: Laboratory Results - last 24 hr 02/19/19 02/19/19 02/19/19 14:59 15:19 16:28 POC Glucose 57 L 73 188 H 02/19/19 02/20/19 02/20/19 20:42 08:23 12:09 POC Glucose 310 H 136 H 334 H Assessment and Plan (1) Bipolar disorder with depression Current visit: Yes Status: Acute Plan: Continue hospitalization, Close observation, Suicide Precautions per unit protocol, Encourage participation in unit milieu, Group Therapy Risks, benefits, side effects, alternatives discussed w/pt: Yes Patient agreeable to treatment: Yes Consult Discharge Plan - Plan Referrals: NONE,PCP [Primary Care Provider] - - Attending Attestation I examined this patient and my medical decision-making was reviewed with the Resident Physician. I agree with the documented findings, disposition and treatment plan as described except to the extent set forth below. Client continues to endorse SI but also future oriented in that he reports "looking forward" to going to [facility]. He has been accepted and is just waiting on a bed. Endorses withdrawal symptoms but no current prescription for Suboxone via [facility] report. Does not appear to be in withdrawal on exam. No need for opiate replacement at this time. Will continue to monitor. Psychiatry Exam - Constitutional Vitals: Temp Pulse Resp BP Pulse Ox 97.4 F L 104 16 113/74 97 02/20/19 09:00 02/20/19 09:00 02/20/19 09:00 02/20/19 09:00 02/20/19 09:00 General appearance: age & developmentally appropriate - Musculoskeletal Gait: normal Station: relaxed Strength & Tone: normal for patient - Psychiatric Patient Orientation: Yes Person, Yes Time, Yes Place, Yes Circumstance Level of alertness: Alert Behavior: nervous, anxious, restless Psychomotor activity: Increased Eye Contact: Minimal Contact Mood Description: Depressed, Anxious Affect description: congruent with mood Speech Volume: Normal Speech pattern: normal rate Language & Vocabulary: consistent with education Thought Process: Intact Thought Content: Yes Intact, Yes Suicidal ideation, No Homicidal ideation, No Overt delusions, No Preoccupation Perceptual Disturbances: No Reacting to internal stimuli, No Auditory hallucinations, No Visual hallucinations Attention Span Ability: Capable of Focused Attention Memory Description: Grossly Intact Patient Reliability: Not Reliable Historian (Client altered specifics about medication history several times over the course of discussion.) Intelligence Estimate: Average Judgment: Fair Insight: Minimal
[2019-02-20] MEDS: Insulin DETEMIR 100 UNIT/ML X5UNITS SQ SCH (20:53)
[2019-02-21] MEDS: Insulin LISPRO 300 UNITS/3 ML VIAL SQ SCH ×4 (09:05→20:22)
[2019-02-21] MEDS: Gabapentin 300 MG CAPSULE PO SCH ×3 (09:08→20:20)
[2019-02-21] MEDS: Lisinopril 20 MG TABLET PO SCH (09:08)
[2019-02-21] MEDS: NIFEdipine XL (24 HR) 30 MG TAB.ER.24 PO SCH (09:08)
--- NOTE | 2019-02-21 11:19 | Psychiatry Progress Note ---
Date of Encounter: 02/21/19 Time of Encounter: 11:15 Subjective Interval history: Client states he remains depressed but is still hopeful [facility] will work out. He is feeling anxious about not hearing back from them and no one answering the phones. Discussed how they are not technically open yet and they may not have staff to answer the phones but that it is this typewriter tester's understanding he has been accepted pending their opening. Client states he is trying to keep a level head. Rude to staff at times. Irritable. Mood may be partially due to poor blood glucose control. Has been swinging from the 60s to the 400s. Not willing to avoid high carb foods. Aware poor diabetes management could be impacting his mental health stability. Review of Systems Constitutional: Denies: fever, chills, weakness, weight change Eyes: Denies: eye pain, vision change Ears, Nose, Throat: Denies: ear pain, throat pain, dental pain, hearing loss, congestion Cardiovascular: Denies: chest pain, palpitations, dyspnea on exertion Respiratory: Denies: cough, dyspnea, wheezes Gastrointestinal: Denies: abdominal pain, nausea, vomiting, diarrhea, constipation Musculoskeletal: Denies: joint swelling, joint pain Neurological: Denies: headache, weakness, numbness, memory loss Psychiatric: Reports: depression, anxiety, abnormal sleep pattern, suicidal ideation, change in appetite, hopelessness, mood swings. Denies: homicidal ideation, auditory hallucinations, visual hallucinations Results - Vital Signs Vital Signs: Temp Pulse Resp BP Pulse Ox 98.1 F 97 18 117/82 99 02/21/19 09:00 02/21/19 09:00 02/21/19 09:00 02/21/19 09:00 02/21/19 09:00 - Labs Labs: Laboratory Results - last 24 hr 02/20/19 02/20/19 02/20/19 12:09 17:00 17:37 POC Glucose 334 H 37 L* 134 H 02/20/19 02/20/19 02/20/19 20:40 20:40 22:27 POC Glucose 428 H* 484 H* 405 H* 02/20/19 02/21/19 02/21/19 22:28 06:15 08:40 POC Glucose 442 H* 60 L 138 H Assessment and Plan (1) Bipolar disorder with depression Current visit: Yes Status: Acute Plan: Continue hospitalization, Close observation, Suicide Precautions per unit protocol, Encourage participation in unit milieu, Group Therapy, Monitor sleep, Monitor appetite Risks, benefits, side effects, alternatives discussed w/pt: Yes Patient agreeable to treatment: Yes Consult Discharge Plan - Plan Referrals: NONE,PCP [Primary Care Provider] - Psychiatry Exam - Constitutional Vitals: Temp Pulse Resp BP Pulse Ox 98.1 F 97 18 117/82 99 02/21/19 09:00 02/21/19 09:00 02/21/19 09:00 02/21/19 09:00 02/21/19 09:00 General appearance: age & developmentally appropriate, well-groomed, well- nourished - Musculoskeletal Gait: normal Station: relaxed Strength & Tone: normal for patient - Psychiatric Patient Orientation: Yes Person, Yes Time, Yes Place Level of alertness: Alert Behavior: calm, cooperative Psychomotor activity: Normal Eye Contact: Maintains Eye Contact Mood Description: Depressed Affect description: congruent with mood Speech Volume: Normal Speech pattern: normal rate, normal rhythm, normal tone, fluent, spontaneous Language & Vocabulary: consistent with education Thought Process: Linear Thought Content: No Suicidal ideation, No Homicidal ideation, No Overt delusions Perceptual Disturbances: No Auditory hallucinations, No Visual hallucinations Attention Span Ability: Capable of Focused Attention Memory Description: Grossly Intact Patient Reliability: Reliable Historian Fund of knowledge: Yes abstraction ability, Yes aware of current events Intelligence Estimate: Average Judgment: Limited Insight: Partial
[2019-02-21] MEDS: traZODone 50 MG TABLET PO PRN (20:20)
[2019-02-21] MEDS: hydrOXYzine pamoate 25 MG CAPSULE PO PRN (20:21)
[2019-02-21] MEDS: Insulin DETEMIR 100 UNIT/ML X5UNITS SQ SCH (20:23)
[2019-02-22] MEDS: Gabapentin 300 MG CAPSULE PO SCH ×3 (08:11→20:09)
[2019-02-22] MEDS: Insulin LISPRO 300 UNITS/3 ML VIAL SQ SCH ×4 (08:30→20:08)
[2019-02-22] MEDS: Lisinopril 20 MG TABLET PO SCH (08:30)
[2019-02-22] MEDS: NIFEdipine XL (24 HR) 30 MG TAB.ER.24 PO SCH (08:30)
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
[2019-02-22] MEDS: Insulin DETEMIR 100 UNIT/ML X5UNITS SQ SCH (20:08)
[2019-02-22] MEDS: traZODone 50 MG TABLET PO PRN (20:09)
[2019-02-22] MEDS: hydrOXYzine pamoate 25 MG CAPSULE PO PRN (20:09)
[2019-02-23] MEDS: Gabapentin 300 MG CAPSULE PO SCH ×3 (08:20→20:07)
[2019-02-23] MEDS: Insulin LISPRO 300 UNITS/3 ML VIAL SQ SCH ×4 (08:29→20:04)
[2019-02-23] MEDS: NIFEdipine XL (24 HR) 30 MG TAB.ER.24 PO SCH (08:30)
[2019-02-23] MEDS: Lisinopril 20 MG TABLET PO SCH (08:30)
--- NOTE | 2019-02-23 10:08 | Psychiatry Progress Note ---
Date of Encounter: 02/23/19 Time of Encounter: 10:02 Subjective Interval history: Client continues to have poor blood sugar control. Glucose swings from 30s overnight to 400s during the day. Discussed what he is eating. Client admits he is eating cookies and drinking orange juice before bed. Will try and make better choices tonight. Waking up when blood sugar dropping at night but discussed how extremely low blood sugars while sleeping is dangerous and could result in . Client agrees to better control his diet today. Client remains anxious about rehab. Staff found out yesterday that [facility] opening has been delayed. A back-up [facility] and client has a rehab bed elsewhere on Monday. However, client is reluctant to go to a [place] based rehab and wants to try and find something else prior to Monday. Advised to discuss this with his outpatient team so he doesn't burn any bridges and client agreeable. Review of Systems Constitutional: Denies: fever, chills, weakness, weight change Eyes: Denies: eye pain, vision change Ears, Nose, Throat: Denies: ear pain, throat pain, dental pain, hearing loss, congestion Cardiovascular: Denies: chest pain, palpitations, dyspnea on exertion Respiratory: Denies: cough, dyspnea, wheezes Gastrointestinal: Denies: abdominal pain, nausea, vomiting, diarrhea, constipation Musculoskeletal: Denies: joint swelling, joint pain Neurological: Denies: headache, weakness, numbness, memory loss Psychiatric: Reports: depression, anxiety, abnormal sleep pattern, suicidal ideation, hopelessness, mood swings. Denies: change in appetite, homicidal idea tion, auditory hallucinations, visual hallucinations Results - Vital Signs Vital Signs: Temp Pulse Resp BP Pulse Ox 96.7 F L 123 18 139/89 100 02/23/19 09:00 02/23/19 09:00 02/23/19 09:00 02/23/19 09:00 02/23/19 09:00 - Labs Labs: Laboratory Results - last 24 hr 02/22/19 02/22/19 02/22/19 11:33 14:49 15:56 POC Glucose 448 H* 54 L 211 H 02/22/19 02/23/19 02/23/19 19:42 03:14 03:20 POC Glucose 328 H 38 L* 43 L* 07/20/19 07/20/19 07/20/19 03:46 08:20 09:52 POC Glucose 103 H 99 366 H Assessment and Plan (1) Bipolar disorder with depression Current visit: Yes Status: Acute Plan: Continue hospitalization, Close observation, Suicide Precautions per unit protocol, Encourage participation in unit milieu, Group Therapy, Monitor sleep, Monitor appetite Risks, benefits, side effects, alternatives discussed w/pt: Yes Patient agreeable to treatment: Yes Consult Discharge Plan - Plan Referrals: NONE,PCP [Primary Care Provider] - Psychiatry Exam - Constitutional Vitals: Temp Pulse Resp BP Pulse Ox 96.7 F L 123 18 139/89 100 02/23/19 09:00 02/23/19 09:00 02/23/19 09:00 02/23/19 09:00 02/23/19 09:00 General appearance: age & developmentally appropriate, well-groomed, well- nourished - Musculoskeletal Gait: normal Station: relaxed Strength & Tone: normal for patient - Psychiatric Patient Orientation: Yes Person, Yes Time, Yes Place Level of alertness: Alert Behavior: calm, cooperative Psychomotor activity: Normal Eye Contact: Maintains Eye Contact Mood Description: Depressed Affect description: congruent with mood Speech Volume: Normal Speech pattern: normal rate, normal rhythm, normal tone, fluent, spontaneous Language & Vocabulary: consistent with education Thought Process: Linear, Goal Oriented Thought Content: No Suicidal ideation, No Homicidal ideation, No Overt delusions Perceptual Disturbances: No Auditory hallucinations, No Visual hallucinations Attention Span Ability: Capable of Focused Attention Memory Description: Grossly Intact Patient Reliability: Reliable Historian Fund of knowledge: Yes abstraction ability, Yes aware of current events Intelligence Estimate: Average Judgment: Limited Insight: Partial
[2019-02-23] MEDS: Insulin DETEMIR 100 UNIT/ML X5UNITS SQ SCH (20:04)
[2019-02-23] MEDS: hydrOXYzine pamoate 25 MG CAPSULE PO PRN (20:07)
[2019-02-23] MEDS: traZODone 50 MG TABLET PO PRN (20:08)
[2019-02-24] MEDS: Gabapentin 300 MG CAPSULE PO SCH ×3 (08:09→20:23)
[2019-02-24] MEDS: Lisinopril 20 MG TABLET PO SCH (09:03)
[2019-02-24] MEDS: NIFEdipine XL (24 HR) 30 MG TAB.ER.24 PO SCH (09:04)
[2019-02-24] MEDS: Insulin LISPRO 300 UNITS/3 ML VIAL SQ SCH ×4 (09:13→20:29)
--- NOTE | 2019-02-24 10:24 | Psychiatry Progress Note ---
Date of Encounter: 02/24/19 Time of Encounter: 10:20 Subjective Interval history: No complaints today. Has a couple of rehab options but won't know any more until tomorrow as everywhere is closed today. Reportedly has a bed at a rehab on Monday but client is hoping to find something else before then. Rehab that is available on Monday is also [place] based and client would prefer somewhere without a gnosticism orientation. Client spends a lot of time on the phone. sales manager [place] states client is calling him multiple times a day. Client is anxious about placement but is likely also bored and using the phone inappropriately to fill his time. Has always been pleasant toward this instructional writer but can be quite rude to nursing staff. Denies SI/HI/AH/VH today. Will be ready to go whenever placement secured. Review of Systems Constitutional: Denies: fever, chills, weakness, weight change Eyes: Denies: eye pain, vision change Ears, Nose, Throat: Denies: ear pain, throat pain, dental pain, hearing loss, congestion Cardiovascular: Denies: chest pain, palpitations, dyspnea on exertion Respiratory: Denies: cough, dyspnea, wheezes Gastrointestinal: Denies: abdominal pain, nausea, vomiting, diarrhea, constipation Musculoskeletal: Denies: joint swelling, joint pain Neurological: Denies: headache, weakness, numbness, memory loss Psychiatric: Reports: depression, anxiety, abnormal sleep pattern, suicidal ideation, hopelessness, mood swings. Denies: change in appetite, homicidal ideation, auditory hallucinations, visual hallucinations Results - Vital Signs Vital Signs: Temp Pulse Resp BP Pulse Ox 98.4 F 114 18 123/80 100 02/24/19 09:00 02/24/19 09:00 02/24/19 09:00 02/24/19 09:00 02/24/19 09:00 - Labs Labs: Laboratory Results - last 24 hr 02/23/19 02/23/19 02/23/19 11:20 16:02 19:36 POC Glucose 389 H 217 H 255 H 02/24/19 08:03 POC Glucose 65 L Assessment and Plan (1) Bipolar disorder with depression Current visit: Yes Status: Acute Plan: Continue hospitalization, Close observation, Suicide Precautions per unit protocol, Encourage participation in unit milieu, Group Therapy, Monitor sleep, Monitor appetite Risks, benefits, side effects, alternatives discussed w/pt: Yes Patient agreeable to treatment: Yes Consult Discharge Plan - Plan Referrals: NONE,PCP [Primary Care Provider] - Psychiatry Exam - Constitutional Vitals: Temp Pulse Resp BP Pulse Ox 98.4 F 114 18 123/80 100 02/24/19 09:00 02/24/19 09:00 02/24/19 09:00 02/24/19 09:00 02/24/19 09:00 General appearance: age & developmentally appropriate, well-groomed, well- nourished - Musculoskeletal Gait: normal Station: relaxed Strength & Tone: normal for patient - Psychiatric Patient Orientation: Yes Person, Yes Time, Yes Place Level of alertness: Alert Behavior: calm, cooperative Psychomotor activity: Normal Eye Contact: Maintains Eye Contact Mood Description: Irritable Affect description: congruent with mood Speech Volume: Normal Speech pattern: normal rate, normal rhythm, normal tone, fluent, spontaneous Language & Vocabulary: consistent with education Thought Process: Linear, Goal Oriented Thought Content: No Suicidal ideation, No Homicidal ideation, No Overt delusions Perceptual Disturbances: No Auditory hallucinations, No Visual hallucinations Attention Span Ability: Capable of Focused Attention Memory Description: Grossly Intact Patient Reliability: Reliable Historian Fund of knowledge: Yes abstraction ability, Yes aware of current events Intelligence Estimate: Average Judgment: Limited Insight: Partial
[2019-02-24] MEDS ORDERED: Insulin LISPRO 300 UNITS/3 ML VIAL SQ ONE (11:55)
[2019-02-24] MEDS: traZODone 50 MG TABLET PO PRN (20:24)
[2019-02-24] MEDS: hydrOXYzine pamoate 25 MG CAPSULE PO PRN (20:24)
[2019-02-25] MEDS: NIFEdipine XL (24 HR) 30 MG TAB.ER.24 PO SCH (08:36)
[2019-02-25] MEDS: Insulin LISPRO 300 UNITS/3 ML VIAL SQ SCH ×4 (08:37→20:18)
[2019-02-25] MEDS: Gabapentin 300 MG CAPSULE PO SCH ×3 (08:37→20:15)
[2019-02-25] MEDS: Lisinopril 20 MG TABLET PO SCH (08:51)
[2019-02-25] MEDS: Insulin DETEMIR 100 UNIT/ML X5UNITS SQ SCH (09:01)
--- NOTE | 2019-02-25 11:23 | Psychiatry Progress Note ---
Date of Encounter: 02/25/19 Time of Encounter: 09:30 Subjective Interval history: Client states mood as "anxious" about getting out of [facility] and being placed somewhere. He is hopeful about [facility] possibly this Monday. Affect is congruent with mood. Denies SI/HI ideation/plan/intent. Reports still recurring nightmares same as before, but "better sleep". No side effects from Prazosin noted by patient. Still trying to control blood sugar levels. Will continue diabetic diet. Review of Systems Constitutional: Denies: fever, chills, weight change, night sweats Cardiovascular: Denies: palpitations, orthopnea, syncope Respiratory: Denies: cough, wheezes Gastrointestinal: Denies: abdominal pain, nausea, diarrhea, constipation Genitourinary male: Denies: urgency Musculoskeletal: Denies: joint pain, myalgia Integumentary: Denies: rash Neurological: Denies: headache, weakness, confusion, abnormal gait Psychiatric: Reports: depression, anxiety, hopelessness. Denies: change in appetite, homicidal ideation, auditory hallucinations, visual hallucinations Endocrine: Denies: fatigue, polyuria Allergic/Immunologic: Denies: facial swelling, urticaria, itchy eyes Results - Vital Signs Vital Signs: Temp Pulse Resp BP Pulse Ox 97.8 F 103 16 112/77 98 02/25/19 09:00 02/25/19 09:00 02/25/19 09:00 02/25/19 09:00 02/25/19 09:00 - Labs Labs: Laboratory Results - last 24 hr 02/24/19 02/24/19 02/24/19 11:26 14:58 20:08 POC Glucose 403 H* 69 L 283 H 02/25/19 02/25/19 08:05 11:16 POC Glucose 185 H 311 H Assessment and Plan (1) Bipolar disorder with depression Current visit: Yes Status: Acute Plan: Continue hospitalization, Suicide Precautions per unit protocol, Encourage participation in unit milieu, Group Therapy, Monitor sleep Risks, benefits, side effects, alternatives discussed w/pt: Yes Patient agreeable to treatment: Yes Consult Discharge Plan - Plan Referrals: NONE,PCP [Primary Care Provider] - - Attending Attestation I examined this patient and my medical decision-making was reviewed with the Resident Physician. I agree with the documented findings, disposition and treatment plan as described except to the extent set forth below. Patient reported mood was better. Awaiting rehab bed. Agree with plan Psychiatry Exam - Constitutional Vitals: Temp Pulse Resp BP Pulse Ox 97.8 F 103 16 112/77 98 02/25/19 09:00 02/25/19 09:00 02/25/19 09:00 02/25/19 09:00 02/25/19 09:00 General appearance: age & developmentally appropriate - Musculoskeletal Gait: normal Station: relaxed Strength & Tone: normal for patient - Psychiatric Patient Orientation: Yes Person, Yes Time, Yes Place, Yes Circumstance Level of alertness: Alert Behavior: calm, cooperative, nervous, anxious Psychomotor activity: Normal Eye Contact: Maintains Eye Contact Mood Description: Anxious Affect description: congruent with mood Speech Volume: Normal Speech pattern: normal rate Language & Vocabulary: consistent with education Thought Process: Intact, Logical, Linear Thought Content: Yes Intact, No Suicidal ideation, No Homicidal ideation, No Overt delusions Perceptual Disturbances: No Reacting to internal stimuli, No Auditory hallucinations, No Visual hallucinations, No Tactile hallucinations Attention Span Ability: Capable of Focused Attention Memory Description: Grossly Intact Patient Reliability: Questionable Historian Fund of knowledge: Yes abstraction ability Intelligence Estimate: Average Judgment: Fair Insight: Partial
[2019-02-25] MEDS: hydrOXYzine pamoate 25 MG CAPSULE PO PRN (20:15)
[2019-02-25] MEDS: traZODone 50 MG TABLET PO PRN (20:15)
[2019-02-26] MEDS: Lisinopril 20 MG TABLET PO SCH (09:15)
[2019-02-26] MEDS: Gabapentin 300 MG CAPSULE PO SCH ×3 (09:15→20:29)
[2019-02-26] MEDS: NIFEdipine XL (24 HR) 30 MG TAB.ER.24 PO SCH (09:15)
[2019-02-26] MEDS: Insulin DETEMIR 100 UNIT/ML X5UNITS SQ SCH (09:19)
[2019-02-26] MEDS: Insulin LISPRO 300 UNITS/3 ML VIAL SQ SCH ×4 (09:25→20:30)
--- NOTE | 2019-02-26 09:31 | Discharge Summary ---
Date of Encounter: 02/26/19 Time of Encounter: 08:00 Diagnosis - Discharge Diagnosis (1) Bipolar disorder with depression Status: Acute Medications - Discharge Medications Prescriptions: Amitriptyline HCl 150 mg PO HS #15 tablet Prazosin [Minipress] 1 mg PO HS #15 capsule Quetiapine Fumarate [Seroquel] 50 mg PO QAM #15 tablet Quetiapine Fumarate [Seroquel] 450 mg PO HS #22 tablet hydrOXYzine pamoate [Vistaril] 25 mg PO TID PRN #45 capsule PRN Reason: Anxiety Carvedilol [Coreg] 25 mg PO BID 02/07/19 [History] Lisinopril [Zestril] 20 mg PO DAILY 02/07/19 [History] NIFEdipine [Adalat cc] 60 mg PO DAILY 02/07/19 [History] Pantoprazole Sodium [Protonix] 40 mg PO BID 02/07/19 [History] Insulin ASPART [NovoLOG] 10 unit SQ TIDWM 02/09/19 [History] Insulin Glargine [Lantus] 20 unit SQ HS 02/09/19 [History] Gabapentin [Neurontin] 300 mg PO TID 02/16/19 [History] Ferrous Sulfate 325 mg PO DAILY #30 tablet 02/17/19 [Rx] Amitriptyline HCl 150 mg PO HS #15 tablet 02/26/19 [Rx] Prazosin [Minipress] 1 mg PO HS #15 capsule 02/26/19 [Rx] Quetiapine Fumarate [Seroquel] 50 mg PO QAM #15 tablet 02/26/19 [Rx] Quetiapine Fumarate [Seroquel] 450 mg PO HS #22 tablet 02/26/19 [Rx] hydrOXYzine pamoate [Vistaril] 25 mg PO TID PRN #45 capsule 02/26/19 [Rx] Allergy/AdvReac Type Severity Reaction Status Date / Time acetaminophen [From Vicodin] AdvReac Nausea Verified 02/17/19 18:50 hydrocodone [From Vicodin] AdvReac Nausea Verified 02/17/19 18:50 Provider Date of admission: 02/17/19 13:30 Primary care physician: PCP NONE Discharging clinician: Aga Kimball Psychiatry Exam - Constitutional Vitals: Temp Pulse Resp BP Pulse Ox 98.7 F 113 18 117/81 100 02/26/19 09:00 02/26/19 09:00 02/26/19 09:00 02/26/19 09:00 02/26/19 09:00 General appearance: age & developmentally appropriate, well-groomed, well- nourished - Musculoskeletal Gait: normal Station: relaxed Strength & Tone: normal for patient - Psychiatric Patient Orientation: Yes Person, Yes Time, Yes Place, Yes Circumstance Level of alertness: Alert Behavior: calm, cooperative Psychomotor activity: Normal Eye Contact: Maintains Eye Contact Mood Description: Euthymic/stable Patient description of mood: Good Affect description: congruent with mood, full range Speech Volume: Normal Speech pattern: normal rate, normal rhythm, normal tone, fluent, spontaneous Language & Vocabulary: consistent with education Thought Process: Linear, Goal Oriented Thought Content: No Suicidal ideation, No Homicidal ideation, No Overt delusions Perceptual Disturbances: No Auditory hallucinations, No Visual hallucinations Attention Span Ability: Capable of Focused Attention Memory Description: Grossly Intact Patient Reliability: Reliable Historian Fund of knowledge: Yes abstraction ability, Yes aware of current events Intelligence Estimate: Average Judgment: Good Insight: Full Hospital Course Hospital course: Mr. Arthur is a 43 year old male who was admitted for worsening of his bipolar disorder and suicidality in the context of substance use. He was restarted on medications and his dosages were adjusted. Patient was educated of diagnosis and the risk-benefit side effects of this alternative treatment options and was monitored for responsiveness and side effects. Mood anxiety sleep and appetite interest improved as did future orientation. Self-harm thoughts subsided, thinking cleared, psychosis resolved, and mood stabilized. Patient was able to attend both individual and group therapy sessions as well as meet with the psychiatrist daily and urged to discuss any medication or treatment issues or other concerns. The patient was educated primarily by verbal means about their diagnosis and manifestations in their life. The option for treatment including group and individual therapy programming was offered to the patient in addition to the use of medications with all their potential risks, benefits, and side effects as well as the risks of not taking medication and non-adhereance were discussed with the patient at length. The patient was given the opportunity to ask questions and was noted to participate in the treatment in the planning process. The patient felt ready and eager to be discharged from the inpatient psychiatric unit to continue on with treatment as an outpatient. The patient agreed that is they were safe for this disposition. The patient was considered to be able to participate in informed consent and decision making with respect to medical, legal, and financial issues of the time of discharge. At the time of discharge the patient adamantly denied any concerns for lethality including suicidal or homicidal thoughts ideations or plans and was future oriented toward ongoing mental health care, medical follow-up and sobriety. Time spent discussing smoking cessation with patient: 3 to 10 minutes Does patient wish to continue nicotine replacement upon disc: No - Time Spent with Patient Total time spent providing and/or coordinating discharge services: 25 Less than 30 minutes Specific discharge activities: Interval history reviewed. Available labs reviewed . Psychotherapy provided. Patient had an opportunity to ask questions and address concerns. Patient was in agreement with the treatment plan. The risks benefits and side effects of medications were discussed with the patient, including alternatives and treatment. The patient was educated on the abstaining from any alcohol or illicit substances, following up with all scheduled appointments, and taking all medications as prescribed. The patient was educated on 90 meetings in 90 days and to find a sponsor. Assessment and Plan - Patient/Caregiver Discharge Instructions Activity: resume usual activities as tolerated Diet: diabetic diet Additional Instructions: Continue current medications. Follow up with outpatient mental health. Encour age continued therapy in a group or individual setting. The patient was discharged to home. - Follow up Plan Follow up with: NONE,PCP [Primary Care Provider] - Functional capacity at discharge: independent ambulation Overall status at discharge: Stable Disposition: Home, Self-Care Quality - Multiple Antipsychotics Patient discharged on 2 or more antipsychotic medications: No Procedures - Procedures Procedures: Medication Management, Crisis Stabilization, Supportive Therapy, Group Therapy, Psychoeducational Therapy
--- NOTE | 2019-02-26 10:42 | Psychiatry Progress Note ---
Date of Encounter: 02/26/19 Time of Encounter: 10:40 Subjective Interval history: Mr. Arthur was seen in dayroom watching tv. He is excited to be discharging tomorrow. He was originally planning to leave today but a ride was arranged through [facility] tomorrow for him to go directly to [facility]. He describes his mood today as "pretty good." He denies SI, HI, AH or VH. He reports sleeping "good" and states he received 6 hours. He does admit to 2 night time awakenings in order to void his bladder which he states is "normal for me." He requests 30 day supplies of his medications at time of discharge tomorrow per [facility] policy. Review of Systems Psychiatric: Reports: depression. Denies: anxiety, suicidal ideation, change in appetite, homicidal ideation, auditory hallucinations, visual hallucinations, hopelessness Results - Vital Signs Vital Signs: Temp Pulse Resp BP Pulse Ox 98.7 F 113 18 117/81 100 02/26/19 09:00 02/26/19 09:00 02/26/19 09:00 02/26/19 09:00 02/26/19 09:00 - Labs Labs: Laboratory Results - last 24 hr 02/25/19 02/25/19 02/25/19 11:16 16:28 19:49 POC Glucose 311 H 88 246 H 02/26/19 07:58 POC Glucose 118 H Assessment and Plan (1) Bipolar disorder with depression Current visit: Yes Status: Acute Plan: Continue hospitalization, Encourage participation in unit milieu, Group Therapy, Monitor sleep, Monitor appetite Additional Plan: Discharge initially planned for today which fell through. Patient will be discharging tomorrow to [facility] with ride arranged through [facility]. Risks, benefits, side effects, alternatives discussed w/pt: Yes Patient agreeable to treatment: Yes Consult Discharge Plan - Plan Instructions: Suicide Prevention for Adults (DC) Additional Instructions: Continue current medications. Follow up with outpatient mental health. Encourage continued therapy in a group or individual setting. The patient was discharged to home. Referrals: NONE,PCP [Primary Care Provider] - Prescriptions: Amitriptyline HCl 150 mg PO HS #15 tablet Prazosin [Minipress] 1 mg PO HS #15 capsule Quetiapine Fumarate [Seroquel] 50 mg PO QAM #15 tablet Quetiapine Fumarate [Seroquel] 450 mg PO HS #22 tablet hydrOXYzine pamoate [Vistaril] 25 mg PO TID PRN #45 capsule PRN Reason: Anxiety - Attending Attestation I examined this patient and my medical decision-making was reviewed with the Resident Physician. I agree with the documented findings, disposition and treatment plan as described except to the extent set forth below. Agree with mental status Agree with Plan Psychiatry Exam - Constitutional Vitals: Temp Pulse Resp BP Pulse Ox 98.7 F 113 18 117/81 100 02/26/19 09:00 02/26/19 09:00 02/26/19 09:00 02/26/19 09:00 02/26/19 09:00 General appearance: age & developmentally appropriate, well-groomed, well-no urished - Musculoskeletal Gait: normal Station: relaxed Strength & Tone: normal for patient - Psychiatric Patient Orientation: Yes Person, Yes Time, Yes Place, Yes Circumstance Level of alertness: Alert Behavior: calm, cooperative Psychomotor activity: Normal Eye Contact: Maintains Eye Contact Mood Description: Euthymic/stable Patient description of mood: "pretty good" Affect description: congruent with mood Speech Volume: Normal Speech pattern: normal rate, normal rhythm, normal tone, fluent Language & Vocabulary: consistent with education Thought Process: Intact, Logical, Linear Thought Content: Yes Intact, No Suicidal ideation, No Homicidal ideation Perceptual Disturbances: No Reacting to internal stimuli, No Auditory hallucinations, No Visual hallucinations Attention Span Ability: Capable of Focused Attention, Capable of Sustained Attention Memory Description: Grossly Intact Patient Reliability: Reliable Historian Fund of knowledge: Yes average Intelligence Estimate: Below Average Judgment: Fair Insight: Partial
[2019-02-26] MEDS: traZODone 50 MG TABLET PO PRN (20:29)
[2019-02-26] MEDS: hydrOXYzine pamoate 25 MG CAPSULE PO PRN (20:29)
[2019-02-27] MEDS: NIFEdipine XL (24 HR) 30 MG TAB.ER.24 PO SCH (08:44)
[2019-02-27] MEDS: Insulin DETEMIR 100 UNIT/ML X5UNITS SQ SCH (08:44)
[2019-02-27] MEDS: Lisinopril 20 MG TABLET PO SCH (08:44)
[2019-02-27] MEDS: Gabapentin 300 MG CAPSULE PO SCH (08:44)
[2019-02-27] MEDS: Insulin LISPRO 300 UNITS/3 ML VIAL SQ SCH (08:47)
[2019-02-27 08:59] VITALS: BP 109/79
--- NOTE | 2019-02-27 10:08 | Psychiatry Progress Note ---
Date of Encounter: 02/27/19 Time of Encounter: 08:25 Subjective Interval history: Patient did not discharge yesterday because he found a bed at [facility] another rehabilitation facility which she preferred. So he will be leaving today. All of the discharge paperwork from yesterday is consistent and remains for today. Review of Systems Psychiatric: Denies: anxiety, suicidal ideation, change in appetite, homicidal ideation, auditory hallucinations, visual hallucinations, hopelessness Results - Vital Signs Vital Signs: Temp Pulse Resp BP Pulse Ox 98.4 F 105 16 109/79 100 02/27/19 08:58 02/27/19 08:58 02/27/19 08:58 02/27/19 08:58 02/27/19 08:58 - Labs Labs: Laboratory Results - last 24 hr 02/26/19 02/26/19 02/26/19 11:07 16:02 19:59 POC Glucose 326 H 80 220 H 02/27/19 08:15 POC Glucose 171 H Assessment and Plan (1) Bipolar disorder with depression Current visit: Yes Status: Acute Plan: Other Additional Plan: Discharge patient today to rehabilitation. Risks, benefits, side effects, alternatives discussed w/pt: Yes Patient agreeable to treatment: Yes Consult Discharge Plan - Plan Instructions: Suicide Prevention for Adults (DC) Additional Instructions: Continue current medications. Follow up with outpatient mental health. Encourage continued therapy in a group or individual setting. The patient was discharged to home. Referrals: [facility] [Other] Prescriptions: Amitriptyline HCl 150 mg PO HS #15 tablet Prazosin [Minipress] 1 mg PO HS #15 capsule Quetiapine Fumarate [Seroquel] 50 mg PO QAM #15 tablet Quetiapine Fumarate [Seroquel] 450 mg PO HS #22 tablet hydrOXYzine pamoate [Vistaril] 25 mg PO TID PRN #45 capsule PRN Reason: Anxiety Psychiatry Exam - Constitutional Vitals: Temp Pulse Resp BP Pulse Ox 98.4 F 105 16 109/79 100 02/27/19 08:58 02/27/19 08:58 02/27/19 08:58 02/27/19 08:58 02/27/19 08:58 General appearance: age & developmentally appropriate, well-groomed, well- nourished - Musculoskeletal Gait: normal Station: relaxed Strength & Tone: normal for patient - Psychiatric Patient Orientation: Yes Person, Yes Time, Yes Place, Yes Circumstance Level of alertness: Alert Behavior: calm, cooperative Psychomotor activity: Normal Eye Contact: Maintains Eye Contact Mood Description: Euthymic/stable Patient description of mood: Good Affect description: congruent with mood, full range Speech Volume: Normal Speech pattern: normal rate, normal rhythm, normal tone, fluent, spontaneous Language & Vocabulary: consistent with education Thought Process: Linear, Goal Oriented Thought Content: No Suicidal ideation, No Homicidal ideation, No Overt delusions Perceptual Disturbances: No Auditory hallucinations, No Visual hallucinations Attention Span Ability: Capable of Focused Attention Memory Description: Grossly Intact Patient Reliability: Reliable Historian Fund of knowledge: Yes abstraction ability, Yes aware of current events Intelligence Estimate: Average Judgment: Good Insight: Full
== END 2019-02-27 10:12 | disposition home or self-care (01) | DRG 753 ==
LOC: 1ANU 13:30 → SUATTDRO 13:30 → 1ANU 02-26 15:27
PROVIDERS: ADMIT Psychiatry & Neurology Psychiatry; ATTEND Psychiatry & Neurology Psychiatry

== ENCOUNTER 2020-03-27 14:45 | Inpatient (IN) ==
[2020-03-27 16:26] LABS: Hematocrit 40.1 % (37.5-50.1); Hemoglobin 11.8 g/dL (12.9-16.9); Mean Corpuscular HGB Conc 29.4 g/dL (31.6-35.5); Mean Corpuscular Hemoglobin 27.3 pg (28.0-33.3); Mean Corpuscular Volume 92.6 fL (83.0-100.0); Mean Platelet Volume 8.6 fL (9.4-12.4); Platelet Count 240 K/mcL (140-400); Red Blood Count 4.33 M/mcL (4.19-5.50); Red Cell Distribution Width 15.8 % (11.5-14.5); White Blood Count 3.6 K/mcL (4.3-11.1)
[2020-03-27 16:27] LABS: Bilirubin,Urine Negative (Negative); Blood,Urine Negative (Negative); Clarity,Urine Clear (Clear); Color,Urine Colorless (Yellow); Glucose,Urine (UA) >=1000 mg/dL (Normal); Ketones,Urine Negative (Negative); Leukocyte Esterase,Urine Negative (Negative); Nitrite,Urine Negative (Negative); PH,Urine 6.5 pH Units (5.0-8.0); Protein,Urine Negative (Neg-Trace); RBC,Urine 0-3 per hpf (0-3); Specific Gravity,Urine 1.027 (1.010-1.025); Urobilinogen,Urine Normal (Normal); WBC,Urine 0-3 per hpf (0-3)
[2020-03-27] MEDS ORDERED: lisinopriL 20 MG TABLET PO STA (16:59)
[2020-03-27 17:23] LABS: Alanine Aminotransferase 217 Units/L (7-52); Albumin 3.4 g/dL (3.5-5.7); Albumin/Globulin Ratio 0.7 (1.1-2.2); Alkaline Phosphatase 678 Units/L (34-104); Aspartate Amino Transferase 73 Units/L (13-39); BUN/Creatinine Ratio 7 (6-26); Bilirubin,Direct 0.5 mg/dL (0.0-0.2); Bilirubin,Indirect 0.6 mg/dL (0.0-1.0); Bilirubin,Total 1.1 mg/dL (0.3-1.0); Blood Urea Nitrogen 6 mg/dL (6-20); Calcium 8.7 mg/dL (8.6-10.3); Carbon Dioxide 28 mEq/L (23-29); Chloride 90 mEq/L (98-107); Globulin 5.2 g/dL (2.4-3.5); Glucose 800 mg/dL (70-105); Lipase 12 Units/L (11-82); Osmolality,Calculated 295 (280-300); Potassium 3.7 mEq/L (3.5-5.1); Sodium 124 mEq/L (136-145); Total Protein 8.6 g/dL (6.4-8.9); eGFR For African Americans > 60 (> 60); eGFR For Non-African Americans > 60 (> 60)
[2020-03-27] MEDS ORDERED: 0.9 % Sodium Chloride 1,000 ML IVC SCH (17:30)
[2020-03-27] MEDS ORDERED: Insulin Human Regular 100 UNIT in 0.9 % Sodium Chloride 100 ML IVC SCH ×2 (17:30→18:15)
[2020-03-27] MEDS ORDERED: *HR* Dextrose 50 % in Water (Vial) 50 ML VIAL IVP PRN (18:13)
[2020-03-27] MEDS ORDERED: D5% in 0.45% NACL 1,000 ML IVC PRN (18:13)
[2020-03-27 19:07] LABS: Magnesium 1.6 mg/dL (1.6-2.6); Phosphorous 3.5 mg/dL (2.7-4.5)
[2020-03-27 19:10] LABS: Troponin I 0.03 ng/mL (< 0.04)
[2020-03-27] MEDS: Ondansetron 4 MG/2 ML VIAL IVP PRN (19:47)
[2020-03-27 19:59] LABS: Estimated Average Glucose 220 mg/dl
[2020-03-27 21:35] LABS: Amphetamine Screen,Urine Negative ng/mL (Cutoff=1000); Barbiturate Screen,Urine Negative ng/mL (Cutoff=200); Benzodiazepines Screen,Urine Negative ng/mL (Cutoff=200); Cannabinoid Screen,Urine Negative ng/mL (Cutoff = 50); Cocaine Screen,Urine Negative ng/mL (Cutoff= 300); Opiate Screen,Urine Negative ng/mL (Cutoff=300); Phencyclidine Screen,Urine Negative ng/mL (Cutoff=25)
[2020-03-27] MEDS: 0.45 % Sodium Chloride w/KCl 20 MEQ/1,000 ML MLS IVC SCH ×2 (21:42→23:51)
[2020-03-27] MEDS: Ketorolac 30 MG/ML VIAL IVP PRN (21:51)
[2020-03-27 21:54] LABS: BUN/Creatinine Ratio 8 (6-26); Blood Urea Nitrogen 5 mg/dL (6-20); Calcium 8.3 mg/dL (8.6-10.3); Carbon Dioxide 26 mEq/L (23-29); Chloride 98 mEq/L (98-107); Glucose 300 mg/dL (70-105); Osmolality,Calculated 280 (280-300); Potassium 3.4 mEq/L (3.5-5.1); Sodium 131 mEq/L (136-145); eGFR For African Americans > 60 (> 60); eGFR For Non-African Americans > 60 (> 60)
[2020-03-27] MEDS: QUEtiapine Fumarate 100 MG TABLET PO SCH (23:23)
[2020-03-27] MEDS: Piperacillin/Tazobactam 3.375 GM in 0.9 % Sodium Chloride Mini Bag 100 ML IVPB SCH (23:29)
[2020-03-28] MEDS ORDERED: Famotidine 20 MG/2 ML VIAL IVP ONE (00:55)
[2020-03-28] MEDS ORDERED: *HR* Promethazine 25 MG/ML VIAL IVP PRN (00:55)
[2020-03-28] MEDS ORDERED: *HR* HYDROmorphone (PF) 1 MG/ML SYRINGE IVP ONE (01:02)
[2020-03-28 01:13] LABS: Basophils % 0.2 %; Eosinophils % 0.7 %; Hematocrit 28.7 % (37.5-50.1); Immature Granulocytes % 0.2 % (0-4); Lymphocytes % 36.8 %; Mean Corpuscular HGB Conc 32.4 g/dL (31.6-35.5); Mean Corpuscular Hemoglobin 28.5 pg (28.0-33.3); Mean Platelet Volume 8.4 fL (9.4-12.4); Monocytes # 0.6 K/mcL (0.0-1.3); Neutrophils # 2.9 K/mcL (1.6-8.9); Platelet Count 198 K/mcL (140-400); Red Blood Count 3.26 M/mcL (4.19-5.50); Red Cell Distribution Width 15.6 % (11.5-14.5); Segmented Neutrophils % 52.1 %
[2020-03-28 01:14] LABS: Hemoglobin 9.3 g/dL (12.9-16.9); White Blood Count 5.5 K/mcL (4.3-11.1)
[2020-03-28 01:32] LABS: BUN/Creatinine Ratio 9 (6-26); Blood Urea Nitrogen 5 mg/dL (6-20); Calcium 7.7 mg/dL (8.6-10.3); Carbon Dioxide 26 mEq/L (23-29); Chloride 101 mEq/L (98-107); Glucose 139 mg/dL (70-105); Osmolality,Calculated 276 (280-300); Potassium 3.7 mEq/L (3.5-5.1); Sodium 133 mEq/L (136-145); eGFR For African Americans > 60 (> 60); eGFR For Non-African Americans > 60 (> 60)
[2020-03-28] MEDS: D5% in 0.45% NACL w KCl 20 MEQ/1,000 ML MLS IVC PRN ×3 (01:57→10:25)
[2020-03-28] MEDS: Nicotine 14 MG PATCH.TD24 TD SCH (02:00)
[2020-03-28] MEDS: 0.9 % Sodium Chloride 1,000 ML IVC SCH ×10 (03:17→08:12)
[2020-03-28] MEDS: 0.45 % Sodium Chloride w/KCl 20 MEQ/1,000 ML MLS IVC SCH ×5 (03:20→08:11)
[2020-03-28] MEDS: Piperacillin/Tazobactam 3.375 GM in 0.9 % Sodium Chloride Mini Bag 100 ML IVPB SCH ×3 (03:43→20:51)
[2020-03-28] MEDS: Ondansetron 4 MG/2 ML VIAL IVP PRN (08:22)
[2020-03-28 08:54] LABS: Troponin I < 0.03 ng/mL (< 0.04)
[2020-03-28 09:32] LABS: Alanine Aminotransferase 129 Units/L (7-52); Albumin 2.5 g/dL (3.5-5.7); Albumin/Globulin Ratio 0.7 (1.1-2.2); Alkaline Phosphatase 425 Units/L (34-104); Aspartate Amino Transferase 53 Units/L (13-39); Bilirubin,Direct 0.2 mg/dL (0.0-0.2); Bilirubin,Indirect 0.6 mg/dL (0.0-1.0); Bilirubin,Total 0.8 mg/dL (0.3-1.0); Globulin 3.6 g/dL (2.4-3.5); Total Protein 6.1 g/dL (6.4-8.9)
[2020-03-28] MEDS ORDERED: *HR* FentaNYL (PF) 100 MCG/2 ML VIAL IVP ONE (10:23)
[2020-03-28] MEDS: Ketorolac 30 MG/ML VIAL IVP PRN (10:26)
[2020-03-28] MEDS ORDERED: Ringers Solution, Lactated 1,000 ML IVC SCH (10:30)
[2020-03-28] MEDS ORDERED: D5% in Water 1,000 ML IVC PRN (10:35)
[2020-03-28] MEDS ORDERED: Dextrose Gel 15 GM/37.5 ML TUBE PO PRN ×2 (10:35)
[2020-03-28] MEDS ORDERED: Insulin LISPRO 300 UNITS/3 ML VIAL SQ SCH (12:00)
[2020-03-28] MEDS: (Buprenorphine Hcl/Naloxone Hcl [Suboxone 8 Mg-2 Mg SL SL SCH (14:27)
[2020-03-28] MEDS: Insulin LISPRO 300 UNITS/3 ML VIAL SQ SCH ×2 (14:31→17:21)
[2020-03-28] MEDS: carvediloL 25 MG TABLET PO SCH (16:30)
[2020-03-28] MEDS ORDERED: Baclofen 10 MG TABLET PO PRN (18:23)
[2020-03-28] MEDS: *HR* Buprenorphine HCl 8 MG TAB.SUBL SL SCH (20:49)
[2020-03-28] MEDS: Gabapentin 400 MG CAPSULE PO SCH (20:49)
[2020-03-28] MEDS: QUEtiapine Fumarate 100 MG TABLET PO SCH (20:50)
[2020-03-28] MEDS: Insulin DETEMIR 100 UNIT/ML X5UNITS SQ SCH (20:52)
[2020-03-29 02:06] LABS: Hematocrit 31.7 % (37.5-50.1); Mean Corpuscular HGB Conc 31.5 g/dL (31.6-35.5); Mean Corpuscular Hemoglobin 27.7 pg (28.0-33.3); Mean Corpuscular Volume 87.8 fL (83.0-100.0); Mean Platelet Volume 8.7 fL (9.4-12.4); Platelet Count 219 K/mcL (140-400); Red Blood Count 3.61 M/mcL (4.19-5.50); Red Cell Distribution Width 15.5 % (11.5-14.5); White Blood Count 5.5 K/mcL (4.3-11.1)
[2020-03-29 02:38] LABS: Alanine Aminotransferase 115 Units/L (7-52); Albumin 2.4 g/dL (3.5-5.7); Albumin/Globulin Ratio 0.7 (1.1-2.2); Alkaline Phosphatase 384 Units/L (34-104); Aspartate Amino Transferase 45 Units/L (13-39); BUN/Creatinine Ratio 8 (6-26); Bilirubin,Total 0.7 mg/dL (0.3-1.0); Blood Urea Nitrogen 8 mg/dL (6-20); Calcium 7.7 mg/dL (8.6-10.3); Carbon Dioxide 26 mEq/L (23-29); Chloride 100 mEq/L (98-107); Globulin 3.6 g/dL (2.4-3.5); Glucose 379 mg/dL (70-105); Osmolality,Calculated 280 (280-300); Potassium 5.3 mEq/L (3.5-5.1); Sodium 128 mEq/L (136-145); eGFR For African Americans > 60 (> 60); eGFR For Non-African Americans > 60 (> 60)
[2020-03-29] MEDS: Piperacillin/Tazobactam 3.375 GM in 0.9 % Sodium Chloride Mini Bag 100 ML IVPB SCH ×3 (04:22→20:05)
[2020-03-29] MEDS: Nicotine 14 MG PATCH.TD24 TD SCH (08:09)
[2020-03-29] MEDS: carvediloL 25 MG TABLET PO SCH ×2 (08:10→17:20)
[2020-03-29] MEDS: NIFEdipine XL (24 HR) 60 MG TAB.ER.24 PO SCH (08:10)
[2020-03-29] MEDS: *HR* Buprenorphine HCl 8 MG TAB.SUBL SL SCH ×2 (08:10→20:05)
[2020-03-29] MEDS: Gabapentin 400 MG CAPSULE PO SCH ×3 (08:10→20:05)
[2020-03-29] MEDS: lisinopriL 20 MG TABLET PO SCH (08:10)
[2020-03-29] MEDS: Insulin LISPRO 300 UNITS/3 ML VIAL SQ SCH ×3 (08:11→17:20)
[2020-03-29] MEDS: (Buprenorphine Hcl/Naloxone Hcl [Suboxone 8 Mg-2 Mg SL SL SCH ×2 (08:12→23:36)
[2020-03-29 08:43] LABS: Potassium 4.6 mEq/L (3.5-5.1)
[2020-03-29] MEDS: Pantoprazole 40 MG VIAL IVP SCH (10:38)
[2020-03-29] MEDS: QUEtiapine Fumarate 100 MG TABLET PO SCH (20:04)
[2020-03-29] MEDS: Insulin DETEMIR 100 UNIT/ML X5UNITS SQ SCH (23:35)
[2020-03-30] MEDS ORDERED: 0.9 % Sodium Chloride 1,000 ML IVC ONE (00:17)
[2020-03-30] MEDS: Naloxone 0.4 MG/ML INJ IVP PRN ×2 (00:27→12:43)
[2020-03-30 01:16] LABS: ABG Base Excess 0 mEq/L (-2 to 3); ABG HCO3 27 mEq/L (21-27); ABG Oxygen Saturation 91 % (95-98); ABG PCO2 55 mmHg (35-45); ABG PH 7.31 pH Units (7.32-7.45); ABG PO2 69 mmHg (85-104); ABG TCO2 29 mEq/L (20-26)
[2020-03-30] MEDS: Insulin DETEMIR 100 UNIT/ML X5UNITS SQ SCH (01:58)
[2020-03-30 04:23] LABS: Hematocrit 36.4 % (37.5-50.1); Hemoglobin 11.3 g/dL (12.9-16.9); Mean Corpuscular Hemoglobin 27.2 pg (28.0-33.3); Mean Corpuscular Volume 87.7 fL (83.0-100.0); Mean Platelet Volume 8.6 fL (9.4-12.4); Platelet Count 161 K/mcL (140-400); Red Blood Count 4.15 M/mcL (4.19-5.50); Red Cell Distribution Width 14.7 % (11.5-14.5)
[2020-03-30 04:46] LABS: Alanine Aminotransferase 97 Units/L (7-52); Albumin 2.8 g/dL (3.5-5.7); Albumin/Globulin Ratio 0.7 (1.1-2.2); Alkaline Phosphatase 388 Units/L (34-104); Aspartate Amino Transferase 41 Units/L (13-39); BUN/Creatinine Ratio 13 (6-26); Bilirubin,Total 0.8 mg/dL (0.3-1.0); Blood Urea Nitrogen 12 mg/dL (6-20); Calcium 8.3 mg/dL (8.6-10.3); Carbon Dioxide 25 mEq/L (23-29); Chloride 99 mEq/L (98-107); Glucose 275 mg/dL (70-105); Osmolality,Calculated 274 (280-300); Potassium 4.9 mEq/L (3.5-5.1); Sodium 127 mEq/L (136-145); Total Protein 6.8 g/dL (6.4-8.9); eGFR For African Americans > 60 (> 60); eGFR For Non-African Americans > 60 (> 60)
[2020-03-30] MEDS: Piperacillin/Tazobactam 3.375 GM in 0.9 % Sodium Chloride Mini Bag 100 ML IVPB SCH ×2 (04:56→22:21)
[2020-03-30] MEDS: Insulin LISPRO 300 UNITS/3 ML VIAL SQ SCH (09:54)
[2020-03-30] MEDS: carvediloL 25 MG TABLET PO SCH ×2 (09:54→16:00)
[2020-03-30] MEDS: lisinopriL 20 MG TABLET PO SCH (09:55)
[2020-03-30] MEDS: NIFEdipine XL (24 HR) 60 MG TAB.ER.24 PO SCH (09:55)
[2020-03-30] MEDS: Pantoprazole 40 MG VIAL IVP SCH (09:55)
[2020-03-30] MEDS: Gabapentin 400 MG CAPSULE PO SCH ×2 (09:55→15:59)
[2020-03-30] MEDS: *HR* Buprenorphine HCl 8 MG TAB.SUBL SL SCH ×2 (09:55→22:20)
[2020-03-30] MEDS: Nicotine 14 MG PATCH.TD24 TD SCH (09:57)
[2020-03-30] MEDS: (Buprenorphine Hcl/Naloxone Hcl [Suboxone 8 Mg-2 Mg SL SL SCH (10:38)
[2020-03-30] MEDS ORDERED: *HR* Dextrose 50 % in Water (Vial) 50 ML VIAL ONE (11:20)
[2020-03-30] MEDS ORDERED: Insulin LISPRO 300 UNITS/3 ML VIAL SQ SCH ×2 (12:00→16:30)
[2020-03-30] MEDS: *HR* Dextrose 50 % in Water (Vial) 50 ML VIAL IVP ONE (12:48)
[2020-03-30] MEDS: D5% in 0.9% NACL 1,000 ML IVC SCH (12:52)
[2020-03-30 13:01] LABS: ABG Base Excess 1 mEq/L (-2 to 3); ABG HCO3 29 mEq/L (21-27); ABG Oxygen Saturation 83 % (95-98); ABG PCO2 59 mmHg (35-45); ABG PH 7.29 pH Units (7.32-7.45); ABG PO2 54 mmHg (85-104); ABG TCO2 30 mEq/L (20-26)
[2020-03-30] MEDS: Ketorolac 30 MG/ML VIAL IVP PRN (19:37)
[2020-03-30] MEDS ORDERED: Gabapentin 300 MG CAPSULE PO SCH (21:00)
[2020-03-30] MEDS ORDERED: Insulin DETEMIR 100 UNIT/ML X5UNITS SQ SCH (21:00)
[2020-03-30] MEDS: QUEtiapine Fumarate 100 MG TABLET PO SCH (21:38)
[2020-03-31] MEDS: Insulin LISPRO 300 UNITS/3 ML VIAL SQ SCH ×3 (00:26→21:57)
[2020-03-31] MEDS: Ketorolac 30 MG/ML VIAL IVP PRN ×3 (04:34→22:02)
[2020-03-31] MEDS: D5% in 0.9% NACL 1,000 ML IVC SCH (05:30)
[2020-03-31] MEDS ORDERED: *HR* Dextrose 50 % in Water (Vial) 50 ML VIAL IVP ONE ×2 (05:46→12:58)
[2020-03-31] MEDS: Piperacillin/Tazobactam 3.375 GM in 0.9 % Sodium Chloride Mini Bag 100 ML IVPB SCH ×2 (06:09→21:07)
[2020-03-31 07:52] LABS: Alanine Aminotransferase 76 Units/L (7-52); Albumin 2.6 g/dL (3.5-5.7); Albumin/Globulin Ratio 0.7 (1.1-2.2); Alkaline Phosphatase 322 Units/L (34-104); Aspartate Amino Transferase 32 Units/L (13-39); BUN/Creatinine Ratio 13 (6-26); Bilirubin,Total 0.6 mg/dL (0.3-1.0); Blood Urea Nitrogen 12 mg/dL (6-20); Carbon Dioxide 22 mEq/L (23-29); Chloride 101 mEq/L (98-107); Globulin 3.6 g/dL (2.4-3.5); Glucose 105 mg/dL (70-105); Osmolality,Calculated 268 (280-300); Potassium 4.5 mEq/L (3.5-5.1); Sodium 129 mEq/L (136-145); Total Protein 6.2 g/dL (6.4-8.9); eGFR For African Americans > 60 (> 60); eGFR For Non-African Americans > 60 (> 60)
[2020-03-31] MEDS: carvediloL 25 MG TABLET PO SCH (07:57)
[2020-03-31] MEDS: Pantoprazole 40 MG VIAL IVP SCH (07:58)
[2020-03-31] MEDS: Nicotine 14 MG PATCH.TD24 TD SCH (07:59)
[2020-03-31] MEDS: lisinopriL 20 MG TABLET PO SCH (08:00)
[2020-03-31] MEDS: *HR* Buprenorphine HCl 8 MG TAB.SUBL SL SCH (08:00)
[2020-03-31 08:26] LABS: Basophils % 0.1 %; Eosinophils # 0.1 K/mcL (0.0-0.6); Eosinophils % 0.9 %; Hematocrit 31.4 % (37.5-50.1); Hemoglobin 10.1 g/dL (12.9-16.9); Immature Granulocytes % 0.4 % (0-4); Lymphocytes % 9.9 %; Mean Corpuscular HGB Conc 32.2 g/dL (31.6-35.5); Mean Corpuscular Hemoglobin 28.4 pg (28.0-33.3); Mean Corpuscular Volume 88.2 fL (83.0-100.0); Mean Platelet Volume 8.3 fL (9.4-12.4); Monocytes # 0.7 K/mcL (0.0-1.3); Monocytes % 6.4 %; Neutrophils # 8.4 K/mcL (1.6-8.9); Platelet Count 202 K/mcL (140-400); Red Blood Count 3.56 M/mcL (4.19-5.50); Red Cell Distribution Width 14.4 % (11.5-14.5); Segmented Neutrophils % 82.3 %
[2020-03-31 08:34] LABS: White Blood Count 10.2 K/mcL (4.3-11.1)
[2020-03-31] MEDS ORDERED: *HR* Midazolam HCl 2 MG/2 ML VIAL ONE (09:53)
[2020-03-31] MEDS ORDERED: *HR* Propofol 200 MG/20 ML VIAL IVP ONE ×2 (09:53→12:14)
[2020-03-31] MEDS ORDERED: *HR* FentaNYL (PF) 100 MCG/2 ML VIAL ONE (09:53)
[2020-03-31] MEDS ORDERED: Lidocaine HCL 4 ML Topical Solution (Laryng-O-Jet Kit Sterile Pak) TP ONE (09:55)
[2020-03-31] MEDS ORDERED: *HR* Rocuronium Bromide 50 MG/5 ML VIAL ONE (09:55)
[2020-03-31] MEDS ORDERED: *HR* Succinylcholine 200 MG/10 ML VIAL IVP ONE (09:55)
[2020-03-31] MEDS ORDERED: Lidocaine -MPF 2% 2 ML VIAL ONE (09:55)
[2020-03-31] MEDS ORDERED: Isovue-300 50ML VIAL ONE (10:52)
[2020-03-31] MEDS ORDERED: Bupivacaine/EPI 1:200k 0.25%PF 30 ML VIAL ONE (10:52)
[2020-03-31] MEDS ORDERED: *HR* Labetalol 20 MG/4 ML SYRINGE IVP PRN (11:02)
[2020-03-31] MEDS ORDERED: *HR* OxyCODONE Immed Rel 5 MG TABLET PO PRN (11:02)
[2020-03-31] MEDS ORDERED: *HR* HYDROmorphone PF 0.5 MG/0.5 ML SYRINGE IVP PRN (11:02)
[2020-03-31] MEDS ORDERED: Ketorolac 30 MG/ML VIAL IVP ONE ×2 (11:02→16:44)
[2020-03-31] MEDS ORDERED: *HR* Promethazine 25 MG/ML VIAL IVP PRN ×2 (11:02→14:16)
[2020-03-31] MEDS ORDERED: Ondansetron 4 MG/2 ML VIAL IVP ONE (11:02)
[2020-03-31] MEDS ORDERED: Acetaminophen IV 1,000 MG/100 ML INFUS..BTL ONE (11:07)
[2020-03-31] MEDS ORDERED: *HR* PHENYLEPHRINE 1,000 MCG/10 ML SYRINGE IVP ONE ×2 (11:35→12:15)
[2020-03-31] MEDS ORDERED: Neostigmine Methylsulfate 3 MG/3 ML SYRINGE ONE (11:48)
[2020-03-31] MEDS ORDERED: Dexamethasone 4 MG/ML VIAL ONE (11:48)
[2020-03-31] MEDS ORDERED: Ondansetron 4 MG/2 ML VIAL ONE (11:48)
[2020-03-31] MEDS ORDERED: *HR* Dextrose 50 % in Water (Vial) 50 ML VIAL ONE (12:58)
[2020-03-31] MEDS: *HR* Dextrose 50 % in Water (Vial) 50 ML VIAL IVP ONE (13:01)
[2020-03-31] MEDS ORDERED: Ibuprofen 600 MG TABLET PO PRN (13:44)
[2020-03-31] MEDS ORDERED: D5% in Water 1,000 ML IVC PRN (14:16)
[2020-03-31] MEDS ORDERED: Ondansetron 4 MG/2 ML VIAL IVP PRN (14:16)
[2020-03-31] MEDS ORDERED: Dextrose Gel 15 GM/37.5 ML TUBE PO PRN ×2 (14:16)
[2020-03-31] MEDS ORDERED: Naloxone 0.4 MG/ML INJ IVP PRN (14:16)
[2020-03-31] MEDS ORDERED: Baclofen 10 MG TABLET PO PRN (14:16)
[2020-03-31] MEDS: Gabapentin 300 MG CAPSULE PO SCH ×2 (15:04→21:28)
[2020-03-31] MEDS ORDERED: *HR* HYDROcodone/Acet 10/325 mg TABLET PO ONE (16:56)
[2020-03-31] MEDS: Acetaminophen IV 1,000 MG/100 ML INFUS..BTL IVPB SCH ×2 (17:03→23:47)
[2020-03-31] MEDS ORDERED: *HR* OxyCODONE/APAP 10/325 TABLET PO PRN ×2 (17:24→17:51)
[2020-03-31] MEDS ORDERED: Insulin LISPRO 300 UNITS/3 ML VIAL SQ SCH (18:00)
[2020-03-31] MEDS ORDERED: *HR* Buprenorphine HCl 8 MG TAB.SUBL SL SCH (21:00)
[2020-03-31] MEDS ORDERED: AMITRIPTYLINE HCL 75 MG PO SCH (21:00)
[2020-03-31] MEDS: QUEtiapine Fumarate 100 MG TABLET PO SCH (21:26)
[2020-03-31] MEDS: Melatonin 3 MG TABLET PO SCH (21:27)
[2020-03-31] MEDS: Insulin DETEMIR 100 UNIT/ML X5UNITS SQ SCH (21:52)
[2020-04-01] MEDS: Insulin DETEMIR 100 UNIT/ML X5UNITS SQ SCH ×2 (01:22→22:03)
[2020-04-01] MEDS ORDERED: Insulin LISPRO 300 UNITS/3 ML VIAL SQ ONE (03:49)
[2020-04-01] MEDS: Piperacillin/Tazobactam 3.375 GM in 0.9 % Sodium Chloride Mini Bag 100 ML IVPB SCH ×3 (06:35→21:56)
[2020-04-01] MEDS: Acetaminophen IV 1,000 MG/100 ML INFUS..BTL IVPB SCH ×3 (06:36→17:28)
[2020-04-01 06:46] LABS: Basophils % 0.1 %; Eosinophils # 0.1 K/mcL (0.0-0.6); Eosinophils % 0.6 %; Hematocrit 28.3 % (37.5-50.1); Immature Granulocytes % 0.4 % (0-4); Lymphocytes # 2.1 K/mcL (0.6-4.6); Mean Corpuscular HGB Conc 31.8 g/dL (31.6-35.5); Mean Corpuscular Hemoglobin 28.1 pg (28.0-33.3); Mean Corpuscular Volume 88.4 fL (83.0-100.0); Mean Platelet Volume 8.6 fL (9.4-12.4); Monocytes # 0.7 K/mcL (0.0-1.3); Monocytes % 7.3 %; Neutrophils # 6.5 K/mcL (1.6-8.9); Platelet Count 176 K/mcL (140-400); Red Cell Distribution Width 14.6 % (11.5-14.5); Segmented Neutrophils % 69.6 %; White Blood Count 9.4 K/mcL (4.3-11.1)
[2020-04-01] MEDS ORDERED: Naltrexone HCl 50 MG TABLET PO SCH (09:00)
[2020-04-01] MEDS ORDERED: Pantoprazole 40 MG VIAL IVP SCH (09:00)
[2020-04-01] MEDS: Nicotine 14 MG PATCH.TD24 TD SCH (09:17)
[2020-04-01] MEDS: Insulin LISPRO 300 UNITS/3 ML VIAL SQ SCH ×4 (09:18→21:59)
[2020-04-01] MEDS: lisinopriL 20 MG TABLET PO SCH (09:23)
[2020-04-01] MEDS: Gabapentin 300 MG CAPSULE PO SCH ×3 (09:23→21:55)
[2020-04-01] MEDS: QUEtiapine Fumarate 25 MG TABLET PO SCH ×2 (09:24→17:32)
[2020-04-01] MEDS: Ketorolac 30 MG/ML VIAL IVP PRN ×2 (10:40→17:31)
[2020-04-01] MEDS ORDERED: *HR* Metoprolol 5 MG/5 ML VIAL IVP ONE (19:46)
[2020-04-01] MEDS: QUEtiapine Fumarate 100 MG TABLET PO SCH (21:52)
[2020-04-01] MEDS: Melatonin 3 MG TABLET PO SCH (21:57)
[2020-04-01] MEDS ORDERED: Isovue-370 500 ML BOTTLE IVP ONE (22:00)
[2020-04-02] MEDS: Acetaminophen IV 1,000 MG/100 ML INFUS..BTL IVPB SCH ×2 (00:47→05:33)
[2020-04-02] MEDS: Piperacillin/Tazobactam 3.375 GM in 0.9 % Sodium Chloride Mini Bag 100 ML IVPB SCH (05:33)
[2020-04-02 06:09] LABS: Basophils % 0.4 %; Eosinophils % 0.3 %; Hematocrit 32.6 % (37.5-50.1); Hemoglobin 10.3 g/dL (12.9-16.9); Immature Granulocytes % 0.7 % (0-4); Lymphocytes # 1.8 K/mcL (0.6-4.6); Lymphocytes % 23.2 %; Mean Corpuscular HGB Conc 31.6 g/dL (31.6-35.5); Mean Corpuscular Hemoglobin 27.2 pg (28.0-33.3); Mean Corpuscular Volume 86.2 fL (83.0-100.0); Mean Platelet Volume 8.6 fL (9.4-12.4); Monocytes # 0.5 K/mcL (0.0-1.3); Monocytes % 6.4 %; Neutrophils # 5.3 K/mcL (1.6-8.9); Platelet Count 196 K/mcL (140-400); Red Blood Count 3.78 M/mcL (4.19-5.50); Red Cell Distribution Width 14.9 % (11.5-14.5); White Blood Count 7.7 K/mcL (4.3-11.1)
[2020-04-02 06:30] LABS: Alanine Aminotransferase 75 Units/L (7-52); Albumin 2.9 g/dL (3.5-5.7); Albumin/Globulin Ratio 0.8 (1.1-2.2); Alkaline Phosphatase 280 Units/L (34-104); Aspartate Amino Transferase 74 Units/L (13-39); BUN/Creatinine Ratio 17 (6-26); Bilirubin,Total 0.8 mg/dL (0.3-1.0); Blood Urea Nitrogen 11 mg/dL (6-20); Calcium 8.2 mg/dL (8.6-10.3); Carbon Dioxide 26 mEq/L (23-29); Chloride 102 mEq/L (98-107); Globulin 3.7 g/dL (2.4-3.5); Glucose 45 mg/dL (70-105); Osmolality,Calculated 276 (280-300); Potassium 3.7 mEq/L (3.5-5.1); Sodium 135 mEq/L (136-145); Total Protein 6.6 g/dL (6.4-8.9); eGFR For African Americans > 60 (> 60); eGFR For Non-African Americans > 60 (> 60)
[2020-04-02 07:31] VITALS: BP 187/101
[2020-04-02] MEDS: Gabapentin 300 MG CAPSULE PO SCH (08:13)
[2020-04-02] MEDS: Nicotine 14 MG PATCH.TD24 TD SCH (08:13)
[2020-04-02] MEDS: QUEtiapine Fumarate 25 MG TABLET PO SCH (08:13)
[2020-04-02] MEDS: lisinopriL 20 MG TABLET PO SCH (08:14)
[2020-04-02] MEDS: Insulin LISPRO 300 UNITS/3 ML VIAL SQ SCH (08:14)
== END 2020-04-02 12:10 | disposition home or self-care (01) | DRG 263 ==
LOC: 2NNU 14:45 → EMEROOARM 14:45 → 2NNU 19:55 → 3ANU 03-28 18:44 → SUATTDRO 03-30 15:03
PROVIDERS: ADMIT Internal Medicine; ATTEND Internal Medicine

== ENCOUNTER 2020-11-13 15:00 | Inpatient (IN) ==
[2020-11-13 15:57] LABS: Basophils % 0.5 %; Eosinophils # 0.1 K/mcL (0.0-0.6); Eosinophils % 1.1 %; Hematocrit 33.9 % (37.5-50.1); Hemoglobin 11.3 g/dL (12.9-16.9); Immature Granulocytes % 0.3 % (0-4); Lymphocytes # 1.8 K/mcL (0.6-4.6); Lymphocytes % 28.9 %; Mean Corpuscular HGB Conc 33.3 g/dL (31.6-35.5); Mean Corpuscular Hemoglobin 26.4 pg (28.0-33.3); Mean Corpuscular Volume 79.2 fL (83.0-100.0); Mean Platelet Volume 8.6 fL (9.4-12.4); Monocytes # 0.8 K/mcL (0.0-1.3); Monocytes % 13.6 %; Neutrophils # 3.4 K/mcL (1.6-8.9); Platelet Count 202 K/mcL (140-400); Red Blood Count 4.28 M/mcL (4.19-5.50); Red Cell Distribution Width 13.4 % (11.5-14.5); Segmented Neutrophils % 55.6 %; White Blood Count 6.2 K/mcL (4.3-11.1)
[2020-11-13 16:08] LABS: Estimated Average Glucose 163 mg/dl; Hemoglobin A1C 7.3 %
[2020-11-13 16:15] LABS: Acetaminophen < 10 mcg/mL (10-20); Alanine Aminotransferase 114 Units/L (7-52); Albumin 3.8 g/dL (3.5-5.7); Alkaline Phosphatase 203 Units/L (34-104); Aspartate Amino Transferase 84 Units/L (13-39); BUN/Creatinine Ratio 25 (6-26); Bilirubin,Direct 0.1 mg/dL (0.0-0.2); Bilirubin,Indirect 0.6 mg/dL (0.0-1.0); Bilirubin,Total 0.7 mg/dL (0.3-1.0); Blood Urea Nitrogen 32 mg/dL (6-20); Calcium 8.9 mg/dL (8.6-10.3); Carbon Dioxide 25 mEq/L (23-29); Chloride 99 mEq/L (98-107); Chol/HDL Ratio 2.4 (0-4.9); Cholesterol 129 mg/dL (< 200); Ethanol < 10 mg/dL (Less than 10); Globulin 3.7 g/dL (2.4-3.5); Glucose 325 mg/dL (70-105); HDL Cholesterol 54 mg/dL (40-59); LDL Cholesterol,Calculated 59 mg/dL (< 100); Osmolality,Calculated 291 (280-300); Potassium 4.7 mEq/L (3.5-5.1); Salicylate < 2.5 mg/dL (15.0-30.0); Sodium 131 mEq/L (136-145); Total Protein 7.5 g/dL (6.4-8.9); Triglycerides 80 mg/dL (< 150); eGFR For African Americans > 60 (> 60); eGFR For Non-African Americans 60 (> 60)
[2020-11-13 17:08] LABS: Bacteria,Urine Few per hpf (None-Few); Bilirubin,Urine Negative (Negative); Blood,Urine Moderate (Negative); Clarity,Urine Clear (Clear); Color,Urine Yellow (Yellow); Glucose,Urine (UA) >=1000 mg/dL (Normal); Hyaline Casts,Urine Many per lpf (None Seen); Ketones,Urine 10 mg/dL (Negative); Leukocyte Esterase,Urine Negative (Negative); Mucus,Urine Few per lpf (None-Few); Nitrite,Urine Negative (Negative); Protein,Urine 200 mg/dL (Neg-Trace); RBC,Urine 15-30 per hpf (0-3); Specific Gravity,Urine 1.028 (1.010-1.025); Squamous Epithelial Cell,Urine Few per hpf (None-Few); Urobilinogen,Urine Normal (Normal)
[2020-11-13 18:15] LABS: Barbiturate Screen,Urine Negative ng/mL (Cutoff=200)
[2020-11-13 18:20] LABS: Amphetamine Screen,Urine Negative ng/mL (Cutoff=1000); Benzodiazepines Screen,Urine Negative ng/mL (Cutoff=300); Cannabinoid Screen,Urine Negative ng/mL (Cutoff = 50); Cocaine Screen,Urine Negative ng/mL (Cutoff= 300); Opiate Screen,Urine Negative ng/mL (Cutoff=300); Phencyclidine Screen,Urine Negative ng/mL (Cutoff=25)
[2020-11-13] MEDS ORDERED: Mag Hydrox/Al Hydrox/Simeth 30 ML UDC PO PRN (22:50)
[2020-11-13] MEDS ORDERED: hydrOXYzine pamoate 25 MG CAPSULE PO PRN (22:50)
[2020-11-13] MEDS ORDERED: *HR* LORazepam 2 MG/ML VIAL IM PRN (22:50)
[2020-11-13] MEDS ORDERED: Ibuprofen 400 MG TABLET PO PRN (22:50)
[2020-11-13] MEDS ORDERED: *HR* LORazepam 1 MG TABLET PO PRN (22:50)
[2020-11-13] MEDS ORDERED: traZODone 50 MG TABLET PO PRN (22:50)
[2020-11-13] MEDS ORDERED: haloperidoL 5 MG TABLET PO PRN (22:50)
[2020-11-13] MEDS ORDERED: Haloperidol Lactate 5 MG/ML VIAL IM PRN (22:50)
[2020-11-13] MEDS ORDERED: MOM Conc 10 ML UD.LIQ PO PRN (22:50)
[2020-11-14] MEDS: QUEtiapine Fumarate 300 MG TABLET PO SCH ×2 (00:26→20:49)
[2020-11-14] MEDS ORDERED: Dextrose Gel 15 GM/37.5 ML TUBE PO PRN ×2 (02:59)
[2020-11-14] MEDS: Insulin LISPRO 300 UNITS/3 ML VIAL SUBQ SCH ×5 (03:23→20:54)
[2020-11-14] MEDS: Aspirin 81 MG TAB.CHEW PO SCH (11:08)
[2020-11-14] MEDS: Famotidine 20 MG TABLET PO SCH (11:08)
[2020-11-14] MEDS: Topiramate 25 MG TABLET PO SCH ×2 (11:09→20:49)
[2020-11-14] MEDS: Multivit/Ca/Min/Fe/FA 1 TAB TABLET PO SCH (11:09)
[2020-11-14] MEDS: lisinopriL 20 MG TABLET PO SCH (11:10)
[2020-11-14] MEDS: Gabapentin 400 MG CAPSULE PO SCH ×3 (11:25→20:49)
[2020-11-15] MEDS: Insulin LISPRO 300 UNITS/3 ML VIAL SUBQ SCH ×4 (08:32→20:27)
[2020-11-15] MEDS: Gabapentin 400 MG CAPSULE PO SCH ×3 (09:04→20:27)
[2020-11-15] MEDS: Multivit/Ca/Min/Fe/FA 1 TAB TABLET PO SCH (09:05)
[2020-11-15] MEDS: lisinopriL 20 MG TABLET PO SCH (09:06)
[2020-11-15] MEDS: carvediloL 6.25 MG TABLET PO SCH (09:06)
[2020-11-15] MEDS: Famotidine 20 MG TABLET PO SCH (09:06)
[2020-11-15] MEDS: Aspirin 81 MG TAB.CHEW PO SCH (09:06)
[2020-11-15] MEDS: Topiramate 25 MG TABLET PO SCH ×2 (09:06→20:27)
[2020-11-15] MEDS: QUEtiapine Fumarate 100 MG TABLET PO SCH (20:27)
[2020-11-16] MEDS: Insulin LISPRO 300 UNITS/3 ML VIAL SUBQ SCH ×4 (08:45→20:27)
[2020-11-16] MEDS: carvediloL 6.25 MG TABLET PO SCH ×2 (08:47→16:53)
[2020-11-16] MEDS: Aspirin 81 MG TAB.CHEW PO SCH (08:48)
[2020-11-16] MEDS: Famotidine 20 MG TABLET PO SCH (08:48)
[2020-11-16] MEDS: lisinopriL 20 MG TABLET PO SCH (08:48)
[2020-11-16] MEDS: Multivit/Ca/Min/Fe/FA 1 TAB TABLET PO SCH (08:48)
[2020-11-16] MEDS: Topiramate 25 MG TABLET PO SCH ×2 (08:48→20:26)
[2020-11-16] MEDS: Gabapentin 400 MG CAPSULE PO SCH (08:49)
[2020-11-16] MEDS: Gabapentin 300 MG CAPSULE PO SCH ×2 (15:30→20:26)
[2020-11-16] MEDS: QUEtiapine Fumarate 100 MG TABLET PO SCH (20:26)
[2020-11-16] MEDS: Sennosides/Docusate Sodium TABLET PO SCH (20:26)
[2020-11-16] MEDS ORDERED: Insulin DETEMIR 100 UNIT/ML X5UNITS SUBQ SCH (21:00)
[2020-11-17] MEDS: Insulin DETEMIR 100 UNIT/ML X5UNITS SUBQ SCH ×2 (08:08→21:39)
[2020-11-17] MEDS: Insulin LISPRO 300 UNITS/3 ML VIAL SUBQ SCH ×4 (08:09→20:27)
[2020-11-17] MEDS: Famotidine 20 MG TABLET PO SCH (08:16)
[2020-11-17] MEDS: Sennosides/Docusate Sodium TABLET PO SCH ×2 (08:17→20:26)
[2020-11-17] MEDS: carvediloL 6.25 MG TABLET PO SCH ×2 (08:17→16:53)
[2020-11-17] MEDS: Aspirin 81 MG TAB.CHEW PO SCH (08:17)
[2020-11-17] MEDS: lisinopriL 20 MG TABLET PO SCH (08:17)
[2020-11-17] MEDS: Gabapentin 300 MG CAPSULE PO SCH ×3 (08:17→20:27)
[2020-11-17] MEDS: Multivit/Ca/Min/Fe/FA 1 TAB TABLET PO SCH (08:17)
[2020-11-17] MEDS: Topiramate 25 MG TABLET PO SCH ×2 (08:17→20:27)
[2020-11-17] MEDS: QUEtiapine Fumarate 100 MG TABLET PO SCH (20:27)
[2020-11-18] MEDS: Insulin LISPRO 300 UNITS/3 ML VIAL SUBQ SCH (08:39)
[2020-11-18] MEDS: Famotidine 20 MG TABLET PO SCH (08:44)
[2020-11-18] MEDS: Multivit/Ca/Min/Fe/FA 1 TAB TABLET PO SCH (08:44)
[2020-11-18] MEDS: Sennosides/Docusate Sodium TABLET PO SCH (08:44)
[2020-11-18] MEDS: lisinopriL 20 MG TABLET PO SCH (08:45)
[2020-11-18] MEDS: carvediloL 6.25 MG TABLET PO SCH (08:45)
[2020-11-18] MEDS: Aspirin 81 MG TAB.CHEW PO SCH (08:45)
[2020-11-18] MEDS: Gabapentin 300 MG CAPSULE PO SCH (08:46)
[2020-11-18 08:49] VITALS: BP 103/74
[2020-11-18] MEDS: Topiramate 25 MG TABLET PO SCH (08:55)
[2020-11-18] MEDS ORDERED: Insulin DETEMIR 100 UNIT/ML X5UNITS SUBQ SCH (09:00)
== END 2020-11-18 11:30 | disposition home or self-care (01) | DRG 753 ==
LOC: EMEROOARM 15:00 → 1ANU 22:25
PROVIDERS: ADMIT Psychiatry & Neurology Psychiatry; ATTEND Psychiatry & Neurology Psychiatry

== ENCOUNTER 2021-06-29 19:46 | Observation (INO) ==
[2021-06-29] MEDS ORDERED: *HR* Dextrose 50 % in Water (Vial) 50 ML VIAL ONE (19:52)
[2021-06-29] MEDS ORDERED: *HR* Dextrose 50 % in Water (Syg) 50 ML SYRINGE IVP ONE (20:04)
[2021-06-29] MEDS ORDERED: 0.9 % Sodium Chloride 1,000 ML IVC ONE (20:04)
[2021-06-29 20:46] LABS: Basophils % 0.4 %; Eosinophils # 0.1 K/mcL (0.0-0.6); Hematocrit 34.3 % (37.5-50.1); Hemoglobin 11.6 g/dL (12.9-16.9); Immature Granulocytes % 0.2 % (0-4); Lymphocytes # 1.5 K/mcL (0.6-4.6); Mean Corpuscular HGB Conc 33.8 g/dL (31.6-35.5); Mean Corpuscular Hemoglobin 27.8 pg (28.0-33.3); Mean Corpuscular Volume 82.3 fL (83.0-100.0); Mean Platelet Volume 8.6 fL (9.4-12.4); Monocytes # 0.4 K/mcL (0.0-1.3); Neutrophils # 3.3 K/mcL (1.6-8.9); Platelet Count 140 K/mcL (140-400); Red Blood Count 4.17 M/mcL (4.19-5.50); Red Cell Distribution Width 13.7 % (11.5-14.5); Segmented Neutrophils % 61.4 %; White Blood Count 5.4 K/mcL (4.3-11.1)
[2021-06-29 21:05] LABS: INR 1.2; Prothrombin Time 13.3 Seconds (9.4-12.1)
[2021-06-29 21:06] LABS: Bilirubin,Urine Negative (Negative); Blood,Urine Small (Negative); Clarity,Urine Clear (Clear); Color,Urine Yellow (Yellow); Glucose,Urine (UA) Normal (Normal); Ketones,Urine Negative (Negative); Leukocyte Esterase,Urine Negative (Negative); Mucus,Urine Few per lpf (None-Few); Nitrite,Urine Negative (Negative); Protein,Urine 50 mg/dL (Neg-Trace); Specific Gravity,Urine 1.025 (1.010-1.025); Urobilinogen,Urine Normal (Normal); WBC,Urine 0-3 per hpf (0-3)
[2021-06-29 21:07] LABS: Activated Partial Thrombo Time 37.9 Seconds (26.0-36.0)
[2021-06-29 21:11] LABS: Amphetamine Screen,Urine Positive ng/mL (Cutoff=1000); Barbiturate Screen,Urine Negative ng/mL (Cutoff=200); Benzodiazepines Screen,Urine Positive ng/mL (Cutoff=200); Cannabinoid Screen,Urine Positive ng/mL (Cutoff = 50); Cocaine Screen,Urine Negative ng/mL (Cutoff= 300); Opiate Screen,Urine Negative ng/mL (Cutoff=300); Phencyclidine Screen,Urine Negative ng/mL (Cutoff=25)
[2021-06-29 21:11] LABS: Alanine Aminotransferase 44 Units/L (7-52); Albumin 3.3 g/dL (3.5-5.7); Albumin/Globulin Ratio 1.1 (1.1-2.2); Alkaline Phosphatase 182 Units/L (34-104); Aspartate Amino Transferase 54 Units/L (13-39); BUN/Creatinine Ratio 22 (6-26); Bilirubin,Direct 0.1 mg/dL (0.0-0.2); Bilirubin,Indirect 0.3 mg/dL (0.0-1.0); Bilirubin,Total 0.4 mg/dL (0.3-1.0); Blood Urea Nitrogen 22 mg/dL (6-20); Calcium 8.5 mg/dL (8.6-10.3); Carbon Dioxide 26 mEq/L (23-29); Chloride 103 mEq/L (98-107); Creatine Kinase 186 Units/L (30-223); Ethanol < 10 mg/dL (Less than 10); Globulin 3.1 g/dL (2.4-3.5); Glucose 47 mg/dL (70-105); Osmolality,Calculated 278 (280-300); Potassium 4.3 mEq/L (3.5-5.1); Sodium 134 mEq/L (136-145); Total Protein 6.4 g/dL (6.4-8.9); Troponin I < 0.03 ng/mL (< 0.04); eGFR For African Americans > 60 (> 60); eGFR For Non-African Americans > 60 (> 60)
[2021-06-29 21:16] LABS: ABG Base Excess -2 mEq/L (-2 to 3); ABG HCO3 23 mEq/L (21-27); ABG Oxygen Saturation 84 % (95-98); ABG PCO2 34 mmHg (35-45); ABG PH 7.43 pH Units (7.32-7.45); ABG PO2 46 mmHg (85-104); ABG TCO2 24 mEq/L (20-26)
[2021-06-29] MEDS: D10% in Water 500 ML IVC SCH (22:02)
[2021-06-29] MEDS ORDERED: *HR* Dextrose 50 % in Water (Vial) 50 ML VIAL IVP ONE (22:03)
[2021-06-29 23:42] LABS: Influenza A PCR Negative (Negative); Influenza B PCR Negative (Negative); Resp. Syncytial Virus PCR Negative (Negative)
[2021-06-29 23:46] LABS: SARS-CoV-2 by PCR (In House) Negative (Negative)
[2021-06-30] MEDS ORDERED: Naloxone 0.4 MG/ML INJ IVP PRN (00:54)
[2021-06-30] MEDS ORDERED: Melatonin 3 MG TABLET PO PRN ×2 (00:54→15:47)
[2021-06-30] MEDS ORDERED: Dextrose Gel 15 GM/37.5 ML TUBE PO PRN ×2 (00:56)
[2021-06-30] MEDS ORDERED: *HR* Dextrose 50 % in Water (Syg) 50 ML SYRINGE IVP PRN (00:56)
[2021-06-30] MEDS ORDERED: D5% in Water 1,000 ML IVC PRN (00:56)
[2021-06-30] MEDS ORDERED: *HR* LORazepam 2 MG/ML VIAL IVP PRN ×3 (01:54)
[2021-06-30] MEDS: D10% in Water 500 ML IVC SCH ×3 (02:26→12:11)
[2021-06-30] MEDS: Thiamine (B-1) 100 MG, Folic Acid 1 MG, MVI, adult with vitamin K 10 ML in 0.9 % Sodi... IVPB SCH ×2 (04:34→18:01)
[2021-06-30 04:56] LABS: Basophils % 0.4 %; Eosinophils # 0.1 K/mcL (0.0-0.6); Eosinophils % 2.7 %; Hematocrit 30.2 % (37.5-50.1); Hemoglobin 10.4 g/dL (12.9-16.9); Immature Granulocytes % 0.2 % (0-4); Lymphocytes # 1.3 K/mcL (0.6-4.6); Lymphocytes % 28.8 %; Mean Corpuscular HGB Conc 34.4 g/dL (31.6-35.5); Mean Corpuscular Hemoglobin 28.4 pg (28.0-33.3); Mean Corpuscular Volume 82.5 fL (83.0-100.0); Mean Platelet Volume 8.8 fL (9.4-12.4); Monocytes # 0.5 K/mcL (0.0-1.3); Neutrophils # 2.6 K/mcL (1.6-8.9); Platelet Count 132 K/mcL (140-400); Red Blood Count 3.66 M/mcL (4.19-5.50); Red Cell Distribution Width 13.4 % (11.5-14.5); Segmented Neutrophils % 57.9 %; White Blood Count 4.5 K/mcL (4.3-11.1)
[2021-06-30 05:14] LABS: Alanine Aminotransferase 36 Units/L (7-52); Albumin 2.8 g/dL (3.5-5.7); Albumin/Globulin Ratio 1.1 (1.1-2.2); Alkaline Phosphatase 148 Units/L (34-104); Aspartate Amino Transferase 44 Units/L (13-39); BUN/Creatinine Ratio 20 (6-26); Bilirubin,Total 0.4 mg/dL (0.3-1.0); Blood Urea Nitrogen 17 mg/dL (6-20); Calcium 7.9 mg/dL (8.6-10.3); Carbon Dioxide 26 mEq/L (23-29); Chloride 102 mEq/L (98-107); Globulin 2.6 g/dL (2.4-3.5); Glucose 131 mg/dL (70-105); Magnesium 1.6 mg/dL (1.6-2.6); Osmolality,Calculated 277 (280-300); Phosphorous 3.2 mg/dL (2.7-4.5); Potassium 4.1 mEq/L (3.5-5.1); Sodium 132 mEq/L (136-145); Total Protein 5.4 g/dL (6.4-8.9); eGFR For African Americans > 60 (> 60); eGFR For Non-African Americans > 60 (> 60)
[2021-06-30] MEDS: Ondansetron 4 MG/2 ML VIAL IVP PRN (08:24)
[2021-06-30] MEDS ORDERED: Famotidine 20 MG TABLET PO PRN (15:47)
[2021-06-30] MEDS: cloNIDine HCL 0.1 MG TABLET PO SCH ×2 (18:00→22:01)
[2021-06-30] MEDS: Insulin LISPRO 300 UNITS/3 ML VIAL SUBQ SCH (18:01)
[2021-06-30] MEDS: QUEtiapine Fumarate 100 MG TABLET PO SCH (22:00)
[2021-07-01] MEDS: cloNIDine HCL 0.1 MG TABLET PO SCH ×4 (04:32→20:41)
[2021-07-01 04:52] LABS: Estimated Average Glucose 163 mg/dl; Hemoglobin A1C 7.3 %
[2021-07-01 04:55] LABS: Basophils % 0.7 %; Eosinophils # 0.1 K/mcL (0.0-0.6); Eosinophils % 2.5 %; Hematocrit 32.1 % (37.5-50.1); Hemoglobin 10.6 g/dL (12.9-16.9); Immature Granulocytes % 0.4 % (0-4); Lymphocytes % 33.3 %; Mean Corpuscular Hemoglobin 27.3 pg (28.0-33.3); Mean Corpuscular Volume 82.7 fL (83.0-100.0); Mean Platelet Volume 9.2 fL (9.4-12.4); Monocytes # 0.4 K/mcL (0.0-1.3); Monocytes % 15.4 %; Neutrophils # 1.4 K/mcL (1.6-8.9); Platelet Count 116 K/mcL (140-400); Red Blood Count 3.88 M/mcL (4.19-5.50); Red Cell Distribution Width 13.4 % (11.5-14.5); Segmented Neutrophils % 47.7 %; White Blood Count 2.9 K/mcL (4.3-11.1)
[2021-07-01] MEDS: Ondansetron 4 MG/2 ML VIAL IVP PRN (05:09)
[2021-07-01] MEDS: lisinopriL 10 MG TABLET PO SCH (05:09)
[2021-07-01] MEDS: Aspirin 81 MG TAB.CHEW PO SCH (05:09)
[2021-07-01 05:11] LABS: BUN/Creatinine Ratio 13 (6-26); Blood Urea Nitrogen 13 mg/dL (6-20); Calcium 8.3 mg/dL (8.6-10.3); Carbon Dioxide 27 mEq/L (23-29); Chloride 100 mEq/L (98-107); Glucose 150 mg/dL (70-105); Osmolality,Calculated 275 (280-300); Potassium 4.6 mEq/L (3.5-5.1); Sodium 131 mEq/L (136-145); eGFR For African Americans > 60 (> 60); eGFR For Non-African Americans > 60 (> 60)
[2021-07-01] MEDS: Insulin LISPRO 300 UNITS/3 ML VIAL SUBQ SCH ×3 (07:12→15:54)
[2021-07-01] MEDS ORDERED: Benzonatate 100 MG CAPSULE PO PRN (16:36)
[2021-07-01] MEDS: Thiamine (B-1) 100 MG, Folic Acid 1 MG, MVI, adult with vitamin K 10 ML in 0.9 % Sodi... IVPB SCH (17:53)
[2021-07-01] MEDS: QUEtiapine Fumarate 100 MG TABLET PO SCH (20:41)
[2021-07-02 03:26] LABS: Basophils % 0.8 %; Eosinophils # 0.1 K/mcL (0.0-0.6); Eosinophils % 2.7 %; Hematocrit 33.4 % (37.5-50.1); Lymphocytes # 1.2 K/mcL (0.6-4.6); Lymphocytes % 46.3 %; Mean Corpuscular HGB Conc 32.9 g/dL (31.6-35.5); Mean Corpuscular Hemoglobin 27.4 pg (28.0-33.3); Mean Corpuscular Volume 83.3 fL (83.0-100.0); Monocytes # 0.6 K/mcL (0.0-1.3); Monocytes % 23.2 %; Neutrophils # 0.7 K/mcL (1.6-8.9); Platelet Count 108 K/mcL (140-400); Red Blood Count 4.01 M/mcL (4.19-5.50); Red Cell Distribution Width 13.4 % (11.5-14.5); White Blood Count 2.6 K/mcL (4.3-11.1)
[2021-07-02 03:43] LABS: BUN/Creatinine Ratio 14 (6-26); Blood Urea Nitrogen 14 mg/dL (6-20); Calcium 8.4 mg/dL (8.6-10.3); Carbon Dioxide 27 mEq/L (23-29); Chloride 102 mEq/L (98-107); Glucose 221 mg/dL (70-105); Osmolality,Calculated 279 (280-300); Potassium 4.6 mEq/L (3.5-5.1); Sodium 131 mEq/L (136-145); eGFR For African Americans > 60 (> 60); eGFR For Non-African Americans > 60 (> 60)
[2021-07-02 03:55] LABS: Platelet Estimate Slight Decrease (Normal)
[2021-07-02] MEDS: lisinopriL 10 MG TABLET PO SCH (05:06)
[2021-07-02] MEDS: Aspirin 81 MG TAB.CHEW PO SCH (05:06)
[2021-07-02] MEDS: cloNIDine HCL 0.1 MG TABLET PO SCH ×2 (05:07→11:37)
[2021-07-02] MEDS: Insulin LISPRO 300 UNITS/3 ML VIAL SUBQ SCH ×2 (07:45→11:37)
[2021-07-02] MEDS ORDERED: Folic Acid 1 MG TABLET PO SCH (09:00)
[2021-07-02] MEDS ORDERED: Multivit/Ca/Min/Fe/FA 1 TAB TABLET PO SCH (09:00)
[2021-07-02] MEDS ORDERED: Thiamine (B-1) 100 MG TABLET PO SCH (09:00)
[2021-07-02] MEDS ORDERED: Fluticasone Propionate Nasal 50 MCG/SPRAY BOTTLE NS SCH (11:00)
[2021-07-02 11:24] VITALS: BP 116/85; PULSE 66; TEMP 98.5; O2SAT 97
== END 2021-07-02 15:39 | disposition home or self-care (01) ==
LOC: EMEROOARM 19:46 → 2ANU 19:46 → SUATTDRO 06-30 → 2ANU 06-30 00:30
PROVIDERS: ADMIT Internal Medicine; ATTEND Internal Medicine